=== PATIENT | male | born 1935 | race Caucasian/White ===

== ENCOUNTER 2020-01-07 07:52 | Inpatient (IN) | payer BC ==
[~2020-01-07] VITALS: Ht 185.4 cm; Wt 86.4 kg
[~2020-01-07 07:52] MED LIST: ALLO100T PO; HUM10VIA SQ; NITR0.4T48 SL; [UNRECOGNIZED DRUG - OTHER] PO
[2020-01-07] MEDS ORDERED: dextrose 50%-water 50ml dispensing syringe IV ONE ×5 (08:15→12:50)
[2020-01-07 08:43] LABS: BASOPHILS % (AUTO) 0.4 % (0-1); EOSINOPHILS # (AUTO) 0.1 X10'3 (0-0.9); EOSINOPHILS % (AUTO) 1.1 % (0-6); HEMATOCRIT 33.7 % (42.0-52.0); HEMOGLOBIN 11.6 g/dl (14.0-17.9); LYMPHOCYTES # (AUTO) 0.6 X10'3 (1.1-4.8); LYMPHOCYTES % (AUTO) 8.6 % (21-51); MEAN CORPUSCULAR HEMOGLOBIN 29.9 PG (27.0-31.0); MEAN CORPUSCULAR HGB CONC 34.4 g/dL (33.0-36.5); MEAN CORPUSCULAR VOLUME 86.8 FL (78-98); MEAN PLATELET VOLUME 7.2 FL (7.4-10.4); MONOCYTES # (AUTO) 0.5 X10'3 (0-0.9); MONOCYTES % (AUTO) 6.7 % (2-12); NEUTROPHILS # (AUTO) 5.7 X10'3 (1.8-7.7); NEUTROPHILS % (AUTO) 83.2 % (42-75); PLATELET COUNT 176 X10'3 (140-440); RED BLOOD COUNT 3.88 X10'6 (4.70-6.10); RED CELL DISTRIBUTION WIDTH 14.1 % (11.5-14.5); WHITE BLOOD COUNT 6.9 X10'3 (4.5-11.0)
[2020-01-07 09:03] LABS: ALANINE AMINOTRANSFERASE 10 U/L (12-78); ALBUMIN 2.7 G/DL (3.4-5.0); ALBUMIN/GLOBULIN RATIO 0.8 (1.1-1.5); ALKALINE PHOSPHATASE 84 IU/L (46-116); ANION GAP 8 (8-16); ASPARTATE AMINO TRANSFERASE 18 U/L (10-37); BILIRUBIN,TOTAL 0.3 MG/DL (0.1-1.0); BLOOD UREA NITROGEN 12 MG/DL (7-18); BUN/CREATININE RATIO 14.1 (5.4-32.0); CALCIUM 8.4 MG/DL (8.5-10.1); CHLORIDE 108 MMOL/L (99-107); CREATININE 0.85 MG/DL (0.60-1.10); GLUCOSE 108 MG/DL (70-104); MAGNESIUM 1.4 MG/DL (1.5-2.4); SODIUM 144 MMOL/L (135-145); TOTAL CARBON DIOXIDE 27.7 MMOL/L (24-32); TOTAL PROTEIN 5.9 G/DL (6.4-8.2); eGFR 85 ML/MIN
[2020-01-07 09:05] LABS: POTASSIUM 2.4 MMOL/L (3.5-5.1)
[2020-01-07] MEDS ORDERED: potassium 10mEq/100ml NS w/LIDOcaine (10mg/bag) IV SCH (09:25)
[2020-01-07] MEDS ORDERED: potassium Cl 20 mEq SR tablet PO ONE (09:25)
[2020-01-07] MEDS: magnesium 2GM in 50ml NS 50 ML IV SCH ×2 (09:50→11:03)
[2020-01-07] MEDS ORDERED: acetaminophen 325mg tablet PO PRN (10:20)
[2020-01-07] MEDS ORDERED: ondansetron/PF 4mg/2ml inj IV PRN (10:20)
[2020-01-07] MEDS ORDERED: magnesium hydroxide 30ml (MOM) UD suspension PO PRN (10:20)
[2020-01-07] MEDS ORDERED: dextrose 5%-normal saline 1,000 ML IV SCH (10:20)
[2020-01-07] MEDS ORDERED: mag hydrox/Alum hydrox/simeth 30ml oral suspension PO PRN (10:20)
[2020-01-07] MEDS ORDERED: potassium Cl 20 mEq SR tablet PO PRN ×2 (10:25)
[2020-01-07] MEDS ORDERED: potassium CL 10mEq/100ml bag 100 ML IV PRN (10:25)
[2020-01-07] MEDS: potassium Cl 10 mEq/100mL bag IV SCH ×2 (10:45→10:49)
--- NOTE | 2020-01-07 11:15 | NUR ---
RN paged Dr. Higginbotham for blood glucose of 62.
[2020-01-07] MEDS ORDERED: sodium chloride inj. 154 MEQ in Dextrose 10%-water IV solution 961.5 ML IV SCH (11:40)
--- NOTE | 2020-01-07 12:16 | NUR ---
Abdias ARANA from ER called back and said she found a wound on patients left foot. She said she will look into it more before sending patient to [facility]
--- NOTE | 2020-01-07 12:16 | NUR ---
Patient in room ED 5. I have received report from Abdias ARANA and had the opportunity to ask questions and assume patient care.
[2020-01-07 13:30] VITALS: BP 141/81
[2020-01-07] MEDS: potassium CL 10mEq/100ml bag 100 ML IV PRN ×3 (14:14→16:36)
[2020-01-07] MEDS ORDERED: glucagon, human recombinant 1mg kit SUBCUT PRN (15:05)
[2020-01-07] MEDS ORDERED: dextrose 50%-water 50ml dispensing syringe IV PRN ×2 (15:05)
[2020-01-07] MEDS ORDERED: dextrose ORAL solution 15 GM/59 ML bottle PO PRN ×2 (15:05)
[2020-01-07] MEDS ORDERED: MESSAGE TO PHARMACY PO ONE (15:05)
[2020-01-07] MEDS ORDERED: insulin Lispro (HumaLOG) vial - multi-dose SQ SCH (15:05)
--- NOTE | 2020-01-07 16:46 | NUR ---
Albin [id number] RE: Brandon Yang Pt BS was 41 gave D5 25ml BS now 88.
--- NOTE | 2020-01-07 16:58 | NUR ---
per Dr. Higginbotham change IV fluid D10 rate to 150ml/hr
[2020-01-07 17:02] LABS: HEMOGLOBIN A1C 10.8 % (4.5-6.2)
[2020-01-07 18:00] VITALS: BP 136/73
--- NOTE | 2020-01-07 18:34 | NUR ---
Problems reprioritized. Patient report given, questions answered & plan of care reviewed with Mirella RN.
--- NOTE | 2020-01-07 19:22 | NUR ---
Patient in room MED 318. I have received report from RUBIN ARANA and had the opportunity to ask questions and assume patient care.
[2020-01-07] MEDS ORDERED: heparin, porcine 5000 units/ml vial SQ SCH (20:00)
[2020-01-07] MEDS ORDERED: K and/or MAG REPLACEMENT MC SCH (20:00)
--- NOTE | 2020-01-07 20:40 | NUR ---
PATIENT BEGAN EXHIBITING S/S OF AGITATION AND INCREASING COMBATIVENESS WHILE WITH SITTER. PATIENT BEGAN TO RAISE VOICE LOUDLY, USE EXPLETIVES AND EXHIBIT AGRESSIVE BEHAVIOR, SWING HIS ARMS AT THE SITTER AND PROGRESS DEVELOPERYASMEEN MAGUIRE. I WAS PASSING MEDICATIONS IN ANOTHER PATIENT ROOM WHILE THIS TRANSPIRED.I THEN CAME INTO MR. ROOM TO ASSESS THE SITUATION. PATIENT INCREASINGLY COMBATIVE, "SOFT CODE MILAN" WAS CALLED-SECURITY CAME UP. THE MAINTENANCE AIDE , DR. PARIKH WAS NOTIFIED OF PATIENTS CONDITION AND DESIRE TO LEAVE THE HOSPITAL. PATIENT CONTINUED TO EXHIBIT S/S OF AGRESSIVE BEHAVIOR WHILE WE CALLED PATIENTS CORINNE. PATIENT CONTINUED TO DISPLAY AGRESSIVE BEHAVIOR THROUGHOUT THE PHONE CALL. MD PARIKH ARRIVED ONTO THE FLOOR TO SIGN AMA DOCUMENTATION. CORINNE AGREED TO COME PICK UP. PROGRESS DEVELOPER, , MYSELF AND MD WERE AT BEDSIDE WHEN ARRIVED TO TAKE PATIENT HOME. PATIENT WAS WHEELED DOWNSTAIRS IN WHEELCHAIR ESCORTED BY PROGRESS DEVELOPERYASMEEN MAGUIRE AND . PATIENT WAS ASSISTED INTO CAR. PATIENT DISCHARGED AT 2150
[2020-01-07] MEDS ORDERED: insulin glargine (Lantus) pen - multi-dose SQ SCH (21:00)
[2020-01-10] MEDS ORDERED: LANTUS SQ (11:57)
== END 2020-01-07 21:50 | disposition left against medical advice (07) | DRG 917 ==
LOC: ER 07:53 → ED HOLD 10:18 → MED 3N 12:51
PROVIDERS: ADMIT Family Medicine; ATTEND Family Medicine
DX: T38.3X1A Poisoning by insulin and oral hypoglycemic [antidiabetic] drugs, accidental (unintentional), initial encounter (principal); G93.41 Metabolic encephalopathy; E11.51 Type 2 diabetes mellitus with diabetic peripheral angiopathy without gangrene; E78.00 Pure hypercholesterolemia, unspecified; E78.5 Hyperlipidemia, unspecified; E87.6 Hypokalemia; E11.649 Type 2 diabetes mellitus with hypoglycemia without coma; I10 Essential (primary) hypertension; Z53.29 Procedure and treatment not carried out because of patient's decision for other reasons; I25.10 Atherosclerotic heart disease of native coronary artery without angina pectoris; I25.2 Old myocardial infarction; Z95.5 Presence of coronary angioplasty implant and graft; Z95.1 Presence of aortocoronary bypass graft; Z86.73 Personal history of transient ischemic attack (TIA), and cerebral infarction without residual deficits; Z85.6 Personal history of leukemia; Z88.0 Allergy status to penicillin; Z88.8 Allergy status to other drugs, medicaments and biological substances; Z79.4 Long term (current) use of insulin
CPT/HCPCS: 36415; 71045; 80053; 82948; 83036; 83605; 83735; 84145; 85025; 87040; 93005; 99285; G0378; J1644; J1815; J3475; J3480; J7042; J7131

== ENCOUNTER 2020-05-14 07:58 | Inpatient (IN) | payer BC ==
[~2020-05-14] VITALS: Ht 182.9 cm; Wt 107.4 kg
[~2020-05-14 07:58] MED LIST changes: -HUM10VIA SQ; -[UNRECOGNIZED DRUG - OTHER] PO
[2020-05-14] MEDS ORDERED: acetaminophen 325mg tablet PO STA (08:13)
[2020-05-14] MEDS ORDERED: levoFLOXACIN-Levaquin 750MG/D5 150 ML IV ONE (08:15)
[2020-05-14] MEDS ORDERED: normal saline 1000ML IV soln IV ONE ×2 (08:15→09:15)
--- NOTE | 2020-05-14 08:26 | NUR ---
CALL TO LAB TO DRAW PATIENT.
--- NOTE | 2020-05-14 08:47 | NUR ---
LAB DRAWING PT; ABX SCANNED ONLY. TO START UPON COMPLETION OF DRAW.
[2020-05-14 09:19] LABS: CLARITY,URINE SLIGHTLY CLOUDY (Clear); GLUCOSE, URINE NEGATIVE (Neg); KETONES,URINE TRACE mg/dl (Neg); LEUKOCYTE ESTERASE ,URINE TRACE (Neg); NITRITES, URINE NEGATIVE (Neg); OCCULT BLOOD,URINE LARGE (Neg); PH,URINE 5.5 (4.8-8.0); PROTEIN,URINE TRACE mg/dl (Neg)
[2020-05-14 09:20] LABS: BASOPHILS # (AUTO) 0.1 X10'3 (0-0.2); BASOPHILS % (AUTO) 0.4 % (0-1); EOSINOPHILS # (AUTO) 0.1 X10'3 (0-0.9); EOSINOPHILS % (AUTO) 0.2 % (0-6); HEMATOCRIT 28.3 % (42.0-52.0); HEMOGLOBIN 9.7 g/dl (14.0-17.9); LYMPHOCYTES # (AUTO) 0.5 X10'3 (1.1-4.8); LYMPHOCYTES % (AUTO) 1.9 % (21-51); MEAN CORPUSCULAR HEMOGLOBIN 29.6 PG (27.0-31.0); MEAN CORPUSCULAR HGB CONC 34.1 g/dL (33.0-36.5); MEAN CORPUSCULAR VOLUME 86.9 FL (78-98); MEAN PLATELET VOLUME 8.3 FL (7.4-10.4); MONOCYTES # (AUTO) 1.5 X10'3 (0-0.9); MONOCYTES % (AUTO) 5.5 % (2-12); NEUTROPHILS # (AUTO) 25.8 X10'3 (1.8-7.7); PARTIAL THROMBOPLASTIN TIME 31 SECONDS (22-32); PLATELET COUNT 206 X10'3 (140-440); RED BLOOD COUNT 3.26 X10'6 (4.70-6.10); RED CELL DISTRIBUTION WIDTH 13.6 % (11.5-14.5)
[2020-05-14 09:23] LABS: WHITE BLOOD COUNT 28.1 X10'3 (4.5-11.0)
[2020-05-14 09:33] LABS: ALANINE AMINOTRANSFERASE 16 U/L (12-78); ALBUMIN 1.8 G/DL (3.4-5.0); ALBUMIN/GLOBULIN RATIO 0.4 (1.1-1.5); ALKALINE PHOSPHATASE 103 IU/L (46-116); ANION GAP 8 (8-16); ASPARTATE AMINO TRANSFERASE 29 U/L (10-37); BILIRUBIN,TOTAL 0.7 MG/DL (0.1-1.0); BLOOD UREA NITROGEN 30 MG/DL (7-18); BUN/CREATININE RATIO 18.8 (5.4-32.0); CALCIUM 8.6 MG/DL (8.5-10.1); CHLORIDE 99 MMOL/L (99-107); GLUCOSE 173 MG/DL (70-104); POTASSIUM 3.4 MMOL/L (3.5-5.1); SODIUM 133 MMOL/L (135-145); TOTAL CARBON DIOXIDE 25.9 MMOL/L (24-32); eGFR 41 ML/MIN
[2020-05-14 09:47] LABS: COLOR,URINE DARK YELLOW (Yellow); UA COLLECTION TYPE STRAIGHT CATH
--- NOTE | 2020-05-14 09:48 | NUR ---
CALL TO PHARMACIST GERA AT THIS TIME REGARDING LEVAQUIN IV INFILTRATION, PER PHARMACIST; WARM COMPRESS TO BE APPLIED TO SITE. PATIENT CALM AND NOT COMPLAINING OF PAIN TO SITE.
[2020-05-14 09:50] LABS: RBC,URINE 50-100 /HPF (0-2); WBC,URINE 0-4 /HPF (0-4)
[2020-05-14 09:51] LABS: AMORPHOUS URATES 1+; BACTERIA,URINE FEW /HPF (Neg); MUCUS STRANDS FEW /LPF (Neg); SQUAMOUS EPITHELIAL CELL,UR FEW /LPF (FEW); TRANSITIONAL EPI CELLS,URINE FEW /HPF
[2020-05-14 09:52] LABS: COARSE GRANULAR CAST 0-3 /LPF (NEGATIVE); HYALINE CASTS 0-3 /LPF (NEGATIVE)
[2020-05-14] MEDS ORDERED: vancomycin/NS 1 GM ADD-VANTAGE 250 ML IV ONE (11:00)
[2020-05-14] MEDS ORDERED: acetaminophen 325mg tablet PO PRN (11:05)
[2020-05-14] MEDS ORDERED: potassium Cl 20 mEq SR tablet PO PRN (11:05)
[2020-05-14] MEDS ORDERED: dextrose 50%-water 50ml dispensing syringe IV PRN (11:05)
[2020-05-14] MEDS ORDERED: mag hydrox/Alum hydrox/simeth 30ml oral suspension PO PRN (11:05)
[2020-05-14] MEDS ORDERED: MESSAGE TO PHARMACY PO ONE (11:05)
[2020-05-14] MEDS ORDERED: potassium CL 10mEq/100ml bag 100 ML IV PRN ×2 (11:05)
[2020-05-14] MEDS ORDERED: ondansetron/PF 4mg/2ml inj IV PRN (11:05)
[2020-05-14] MEDS ORDERED: glucagon, human recombinant 1mg kit SUBCUT PRN (11:05)
[2020-05-14] MEDS ORDERED: HYDROmorphone 1 mg/ml syringe IV PRN (11:05)
[2020-05-14] MEDS ORDERED: magnesium 2GM in 50ml NS 50 ML IV PRN (11:05)
[2020-05-14] MEDS ORDERED: docusate sod 100mg capsule PO PRN (11:05)
[2020-05-14] MEDS ORDERED: HYDROmorphone inj. 0.5 MG/0.5 ML DISP.SYRIN IV PRN (11:05)
[2020-05-14] MEDS ORDERED: magnesium 4gm in 100ml NS 100 ML IV PRN (11:05)
[2020-05-14 11:31] LABS: HEMOGLOBIN A1C 7.9 % (4.5-6.2)
[2020-05-14 12:00] VITALS: BP 96/45
[2020-05-14] MEDS: normal saline 1000ml 1,000 ML IV SCH (12:07)
[2020-05-14] MEDS: VANCOMYCIN 1,500MG inj. 1,500 MG in normal saline 500ml IV soln 500 ML IV SCH (12:08)
[2020-05-14 12:12] LABS: HYPERSEGMENTED NEUTROPHILS FEW; PLATELET ESTIMATE NORMAL; TOTAL CELLS COUNTED 100; TOXIC GRANULATION 1+
[2020-05-14] MEDS ORDERED: INSU100C4 SQ (12:32)
[2020-05-14] MEDS ORDERED: INSU100V9 SQ (12:32)
[2020-05-14] MEDS: insulin Lispro (HumaLOG) vial - multi-dose SQ SCH ×2 (14:09→19:30)
[2020-05-14] MEDS: potassium Cl 20 mEq SR tablet PO PRN ×2 (14:10→19:53)
--- NOTE | 2020-05-14 18:10 | NUR ---
Patient in room ORTHO 4020. I have received report from YASMEEN Turner and had the opportunity to ask questions and assume patient care.
--- NOTE | 2020-05-14 18:21 | NUR ---
Patient report given to Simran ARANA
--- NOTE | 2020-05-14 19:39 | NUR ---
PT BLADDER SCANNED FOR 191 IN IT. PT STATES NOT READY TO VOID YET.
[2020-05-14] MEDS: K and/or MAG REPLACEMENT MC SCH (20:00)
--- NOTE | 2020-05-14 20:05 | NUR ---
Blood culture gram+ cocci in pairs and short chains aerobic bottle. Dr. Bustillos notified.
[2020-05-14 21:04] VITALS: BP 110/53
[2020-05-14] MEDS: insulin glargine (Lantus) pen - multi-dose SQ SCH (21:25)
[2020-05-15] MEDS: normal saline 1000ml 1,000 ML IV SCH ×4 (00:31→22:26)
[2020-05-15 06:03] LABS: BASOPHILS % (AUTO) 0 % (0-1); EOSINOPHILS % (AUTO) 0 % (0-6); HEMATOCRIT 29.6 % (42.0-52.0); HEMOGLOBIN 10.1 g/dl (14.0-17.9); LYMPHOCYTES # (AUTO) 0.7 X10'3 (1.1-4.8); LYMPHOCYTES % (AUTO) 2.9 % (21-51); MEAN CORPUSCULAR HEMOGLOBIN 29.7 PG (27.0-31.0); MEAN CORPUSCULAR HGB CONC 34.2 g/dL (33.0-36.5); MEAN PLATELET VOLUME 8.5 FL (7.4-10.4); MONOCYTES % (AUTO) 4.5 % (2-12); NEUTROPHILS # (AUTO) 20.4 X10'3 (1.8-7.7); NEUTROPHILS % (AUTO) 92.6 % (42-75); PLATELET COUNT 216 X10'3 (140-440); RED CELL DISTRIBUTION WIDTH 13.4 % (11.5-14.5); WHITE BLOOD COUNT 22.1 X10'3 (4.5-11.0)
[2020-05-15 06:06] LABS: ALANINE AMINOTRANSFERASE 16 U/L (12-78); ALBUMIN 1.6 G/DL (3.4-5.0); ALBUMIN/GLOBULIN RATIO 0.4 (1.1-1.5); ALKALINE PHOSPHATASE 101 IU/L (46-116); ANION GAP 7 (8-16); ASPARTATE AMINO TRANSFERASE 27 U/L (10-37); BILIRUBIN,TOTAL 0.4 MG/DL (0.1-1.0); BLOOD UREA NITROGEN 29 MG/DL (7-18); BUN/CREATININE RATIO 22.1 (5.4-32.0); CALCIUM 7.9 MG/DL (8.5-10.1); CHLORIDE 106 MMOL/L (99-107); CHOL/HDL RATIO 4.6 (0.00-4.99); CHOLESTEROL 78 MG/DL (0-200); CREATININE 1.31 MG/DL (0.60-1.10); GLUCOSE 158 MG/DL (70-104); HDL CHOLESTEROL 17 MG/DL (35-60); LDL CHOLESTEROL 45 MG/DL (50-100); MAGNESIUM 1.8 MG/DL (1.5-2.4); POTASSIUM 3.8 MMOL/L (3.5-5.1); SODIUM 138 MMOL/L (135-145); TOTAL CARBON DIOXIDE 25.1 MMOL/L (24-32); TOTAL PROTEIN 5.5 G/DL (6.4-8.2); TRIGLYCERIDES 62 MG/DL (20-135); eGFR 52 ML/MIN
[2020-05-15 06:10] VITALS: BP 131/53
--- NOTE | 2020-05-15 06:20 | NUR ---
Problems reprioritized. Patient report given, questions answered & plan of care reviewed with YASMEEN Turner.
--- NOTE | 2020-05-15 06:33 | NUR ---
Patient in room ORTHO 4020. I have received report from Simran ARANA and had the opportunity to ask questions and assume patient care.
[2020-05-15] MEDS: K and/or MAG REPLACEMENT MC SCH ×2 (08:00→20:00)
[2020-05-15] MEDS: enoxaparin 40mg/0.4ml syringe SQ SCH (08:12)
[2020-05-15] MEDS: insulin Lispro (HumaLOG) vial - multi-dose SQ SCH ×3 (08:19→19:26)
[2020-05-15 10:00] VITALS: BP 109/54
[2020-05-15] MEDS: VANCOMYCIN 1,500MG inj. 1,500 MG in normal saline 500ml IV soln 500 ML IV SCH (11:50)
--- NOTE | 2020-05-15 12:22 | NUR ---
DM/Wound/Malik Consults: Malik 12, A1C 7.9 down from 10.8 in December this year. 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 DX sepsis, metabolic encephalopathy, acute renal insufficiency, and pyuria r/t UTI per MD. Pt not appropriate for verbal DM/high protein eds at this time; written DM/high protein eds w/ RD contact information placed in pt chart. PO 0-25% first 2 meals yesterday pending PO today. Would benefit from strawberry Darien smoothie BIDBL for wound healing needs; MD notified. RD d/w RN regarding MVI for wounds if MD agreeable. LBM 05/14. Will continue to monitor for additional protein needs. Rec: 1. continue carb controlled/heart healthy diet; encourage PO 2. strawberry Darien smoothie BIDBL for wounds 3. MVI for wound healing 4. routine bowel care 5. wt per rx Addendum: 05/15/20 at [address] Amended: Links added.
[2020-05-15] MEDS: JUVEN Smoothie Arginine/Glut./Ca2+Bmb (Juven 19.3pkt) 240ml cup PO SCH (12:30)
[2020-05-15 18:00] VITALS: BP 146/72
--- NOTE | 2020-05-15 18:11 | NUR ---
Patient report given to Simran ARANA
--- NOTE | 2020-05-15 18:20 | NUR ---
Patient in room ORTHO 4020. I have received report from YASMEEN Turner and had the opportunity to ask questions and assume patient care.
[2020-05-15] MEDS: Dakins solution (1/4 strength) 473ml solution TP SCH (19:49)
[2020-05-15] MEDS ORDERED: Melatonin 3mg tablet PO ONE (21:00)
[2020-05-15 22:00] VITALS: BP 144/58
[2020-05-15] MEDS: insulin glargine (Lantus) pen - multi-dose SQ SCH (22:30)
--- NOTE | 2020-05-16 06:25 | NUR ---
Patient in room ORTHO 4020. I have received report from Simran and had the opportunity to ask questions and assume patient care.
--- NOTE | 2020-05-16 06:29 | NUR ---
Problems reprioritized. Patient report given, questions answered & plan of care reviewed with YASMEEN Casey.
[2020-05-16 07:15] LABS: BASOPHILS % (AUTO) 0.2 % (0-1); EOSINOPHILS # (AUTO) 0.1 X10'3 (0-0.9); EOSINOPHILS % (AUTO) 0.3 % (0-6); HEMATOCRIT 29.6 % (42.0-52.0); LYMPHOCYTES # (AUTO) 0.9 X10'3 (1.1-4.8); LYMPHOCYTES % (AUTO) 3.9 % (21-51); MEAN CORPUSCULAR HEMOGLOBIN 29.4 PG (27.0-31.0); MEAN CORPUSCULAR HGB CONC 33.8 g/dL (33.0-36.5); MEAN CORPUSCULAR VOLUME 87.1 FL (78-98); MEAN PLATELET VOLUME 8.2 FL (7.4-10.4); MONOCYTES % (AUTO) 4.4 % (2-12); NEUTROPHILS # (AUTO) 21.3 X10'3 (1.8-7.7); NEUTROPHILS % (AUTO) 91.2 % (42-75); PLATELET COUNT 239 X10'3 (140-440); RED CELL DISTRIBUTION WIDTH 13.7 % (11.5-14.5); WHITE BLOOD COUNT 23.4 X10'3 (4.5-11.0)
[2020-05-16 07:30] VITALS: BP 121/70
[2020-05-16 07:41] LABS: ALANINE AMINOTRANSFERASE 18 U/L (12-78); ALBUMIN 1.4 G/DL (3.4-5.0); ALBUMIN/GLOBULIN RATIO 0.4 (1.1-1.5); ALKALINE PHOSPHATASE 121 IU/L (46-116); ANION GAP 10 (8-16); ASPARTATE AMINO TRANSFERASE 28 U/L (10-37); BILIRUBIN,TOTAL 0.4 MG/DL (0.1-1.0); BLOOD UREA NITROGEN 26 MG/DL (7-18); BUN/CREATININE RATIO 24.1 (5.4-32.0); CHLORIDE 106 MMOL/L (99-107); CREATININE 1.08 MG/DL (0.60-1.10); GLUCOSE 136 MG/DL (70-104); MAGNESIUM 1.7 MG/DL (1.5-2.4); POTASSIUM 3.6 MMOL/L (3.5-5.1); SODIUM 137 MMOL/L (135-145); TOTAL CARBON DIOXIDE 21.5 MMOL/L (24-32); TOTAL PROTEIN 5.4 G/DL (6.4-8.2); eGFR 65 ML/MIN
[2020-05-16] MEDS: JUVEN Smoothie Arginine/Glut./Ca2+Bmb (Juven 19.3pkt) 240ml cup PO SCH ×2 (07:49→12:30)
[2020-05-16] MEDS ORDERED: levoFLOXACIN-Levaquin 500mg/D5 100 ML IV SCH (08:00)
[2020-05-16] MEDS: K and/or MAG REPLACEMENT MC SCH ×2 (08:00→20:00)
[2020-05-16 08:13] LABS: CALCIUM 7.8 MG/DL (8.5-10.1)
[2020-05-16] MEDS: Dakins solution (1/4 strength) 473ml solution TP SCH ×3 (08:22→23:00)
[2020-05-16] MEDS: enoxaparin 40mg/0.4ml syringe SQ SCH (08:23)
[2020-05-16] MEDS: insulin Lispro (HumaLOG) vial - multi-dose SQ SCH ×2 (09:06→19:52)
[2020-05-16 10:00] VITALS: BP 119/74
[2020-05-16] MEDS: normal saline 1000ml 1,000 ML IV SCH (10:46)
[2020-05-16 12:25] VITALS: BP 119/74
[2020-05-16] MEDS ORDERED: ringers solution, lacted 1,000 ML IV SCH (12:59)
[2020-05-16] MEDS ORDERED: meperidine/PF 25mg/ml syringe IV PRN ×3 (13:00)
[2020-05-16] MEDS ORDERED: morphine 4 MG/ML inj SYRINge IV PRN (13:00)
[2020-05-16] MEDS ORDERED: proCHLORperazine 10 MG/2 ml inj IV PRN (13:00)
[2020-05-16] MEDS ORDERED: ondansetron/PF 4mg/2ml inj IV PRN (13:00)
[2020-05-16] MEDS ORDERED: morphine 2 MG/ML inj. syringe IV PRN (13:00)
--- NOTE | 2020-05-16 13:13 | NUR ---
Pt went to the OR at 13:00, called report to recovery after I was back from lunch. Spoke with Aliya
[2020-05-16] MEDS ORDERED: bacitracin 15gm ointment TP ONE (13:23)
[2020-05-16] MEDS ORDERED: ceFAZolin 1000mg inj ONE (13:23)
[2020-05-16] MEDS ORDERED: ringers solution, lacted 1,000 ML IV ONE (15:39)
--- NOTE | 2020-05-16 15:43 | NUR ---
Received call from recovery/anesthesiologist, pt is not having surgery today and will have surgery tomorrow, 05/17 at 07:30. Pt had been given morning meds/lovenox prior to the decision being made to have surgery.
[2020-05-16] MEDS: cefepime 1GM in D5W 50mL 50 ML IV SCH ×2 (16:00→23:59)
[2020-05-16] MEDS: metroNIDAZOLE-Flagyl 500mg/NS 100 ML IV SCH (16:00)
[2020-05-16 18:00] VITALS: BP 123/46
--- NOTE | 2020-05-16 18:15 | NUR ---
Problems reprioritized. Patient report given, questions answered & plan of care reviewed with Patricia.
[2020-05-16 22:00] VITALS: BP 141/62
[2020-05-16] MEDS: insulin glargine (Lantus) pen - multi-dose SQ SCH (22:05)
[2020-05-16] MEDS ORDERED: Melatonin 3mg tablet PO SCH (22:10)
[2020-05-17] VITALS (12 sets, daily range): BP systolic 110–146; BP diastolic 51–88
[2020-05-17] MEDS: metroNIDAZOLE-Flagyl 500mg/NS 100 ML IV SCH ×4 (00:53→23:46)
[2020-05-17] MEDS: normal saline 1000ml 1,000 ML IV SCH ×3 (01:07→19:01)
[2020-05-17] MEDS ORDERED: famotidine 20mg tablet PO ONE (06:00)
[2020-05-17 06:15] LABS: BASOPHILS % (AUTO) 0.2 % (0-1); EOSINOPHILS # (AUTO) 0.1 X10'3 (0-0.9); EOSINOPHILS % (AUTO) 0.3 % (0-6); HEMATOCRIT 31.8 % (42.0-52.0); HEMOGLOBIN 10.5 g/dl (14.0-17.9); LYMPHOCYTES % (AUTO) 4.3 % (21-51); MEAN CORPUSCULAR HEMOGLOBIN 28.9 PG (27.0-31.0); MEAN CORPUSCULAR VOLUME 87.4 FL (78-98); MEAN PLATELET VOLUME 8.2 FL (7.4-10.4); MONOCYTES # (AUTO) 1.3 X10'3 (0-0.9); MONOCYTES % (AUTO) 5.5 % (2-12); NEUTROPHILS # (AUTO) 20.3 X10'3 (1.8-7.7); NEUTROPHILS % (AUTO) 89.7 % (42-75); PLATELET COUNT 302 X10'3 (140-440); RED BLOOD COUNT 3.64 X10'6 (4.70-6.10); RED CELL DISTRIBUTION WIDTH 13.9 % (11.5-14.5); WHITE BLOOD COUNT 22.6 X10'3 (4.5-11.0)
[2020-05-17 06:32] LABS: ALANINE AMINOTRANSFERASE 18 U/L (12-78); ALBUMIN 1.4 G/DL (3.4-5.0); ALBUMIN/GLOBULIN RATIO 0.3 (1.1-1.5); ALKALINE PHOSPHATASE 150 IU/L (46-116); ANION GAP 6 (8-16); ASPARTATE AMINO TRANSFERASE 24 U/L (10-37); BILIRUBIN,TOTAL 0.5 MG/DL (0.1-1.0); BLOOD UREA NITROGEN 24 MG/DL (7-18); BUN/CREATININE RATIO 23.1 (5.4-32.0); CALCIUM 8.2 MG/DL (8.5-10.1); CHLORIDE 107 MMOL/L (99-107); CREATININE 1.04 MG/DL (0.60-1.10); GLUCOSE 135 MG/DL (70-104); MAGNESIUM 1.5 MG/DL (1.5-2.4); POTASSIUM 3.3 MMOL/L (3.5-5.1); SODIUM 138 MMOL/L (135-145); TOTAL CARBON DIOXIDE 24.8 MMOL/L (24-32); TOTAL PROTEIN 5.8 G/DL (6.4-8.2); eGFR 68 ML/MIN
--- NOTE | 2020-05-17 06:35 | NUR ---
Patient in room ORTHO 4020. I have received report from Patricia ARANA and had the opportunity to ask questions and assume patient care.
[2020-05-17] MEDS ORDERED: fentaNYL/PF 50MCG/1 ML 2ML syringe ONE (07:05)
[2020-05-17] MEDS ORDERED: MIDAZolam 5mg/5ml vial ONE (07:05)
--- NOTE | 2020-05-17 07:13 | NUR ---
Pt heading down to OR for surgery. Called Recovery room to give report but no Answer. Apparently OR stated no one arrives to recovery until 8-8:30 am.
[2020-05-17] MEDS: JUVEN Smoothie Arginine/Glut./Ca2+Bmb (Juven 19.3pkt) 240ml cup PO SCH ×2 (07:30→12:30)
[2020-05-17] MEDS ORDERED: ringers solution, lacted 1,000 ML IV SCH (07:57)
[2020-05-17] MEDS: cefepime 1GM in D5W 50mL 50 ML IV SCH ×2 (08:00→17:55)
[2020-05-17] MEDS ORDERED: meperidine/PF 25mg/ml syringe IV PRN ×3 (08:00)
[2020-05-17] MEDS ORDERED: morphine 2 MG/ML inj. syringe IV PRN (08:00)
[2020-05-17] MEDS: K and/or MAG REPLACEMENT MC SCH ×3 (08:00→20:00)
[2020-05-17] MEDS ORDERED: morphine 4 MG/ML inj SYRINge IV PRN (08:00)
[2020-05-17] MEDS ORDERED: proCHLORperazine 10 MG/2 ml inj IV PRN (08:00)
[2020-05-17] MEDS ORDERED: ondansetron/PF 4mg/2ml inj IV PRN (08:00)
[2020-05-17] MEDS: enoxaparin 40mg/0.4ml syringe SQ SCH (08:00)
[2020-05-17] MEDS ORDERED: ePHEDrine 50MG/ML INJ. ONE (08:01)
[2020-05-17] MEDS ORDERED: dexamethasone sod phosphate 4mg/ml inj. ONE (09:09)
--- NOTE | 2020-05-17 09:19 | NUR ---
Received from OR via BED, accompanied by Anesthesiologist DR SPANN- and report given by Anesthesiolgist. PATIENT A&OX4, DENIES PAIN, V/S WNL, NEUROVASCULAR CHECKS INTACT, 20G PIV LUE, SCD ON, DRESSING STUMP CAP WITH SANTINO TO RLE CDI WITH SMALL AMOUNT OF DRAINAGE IN SANTINO. BG 131
--- NOTE | 2020-05-17 09:56 | NUR ---
Received report from Cliff ARANA in Recovery, Pt A & Ox 4, Blood loss <100, Pt had a spinal block. glucose level 131. Pt will come up to the floor in 15-20 min.
--- NOTE | 2020-05-17 10:20 | NUR ---
PATIENT REORIENTED TO BASELINE, DENIES PAIN, V/S WNL, NEUROVASCULAR CHECKS INTACT, 20G PIV LUE, SCD ON, DRESSING STUMP CAP WITH SANTINO TO RLE CDI WITH SMALL AMOUNT OF DRAINAGE IN SANTINO. BG 131- PATIENT TAKEN TO 4020B WITH ALL BELONGINGS AND HOOKED UP TO MONITORS IN ROOM AND REPORT GIVEN TO RN WHO HAS TAKEN OVER PATIENT CARE.
[2020-05-17] MEDS ORDERED: VANCOMYCIN LEVEL IV ONE (10:30)
[2020-05-17] MEDS ORDERED: famotidine 10mg tablet PO ONE (11:35)
[2020-05-17] MEDS ORDERED: potassium CL 10mEq/100ml bag 100 ML IV PRN (18:25)
[2020-05-17] MEDS ORDERED: magnesium 4gm in 100ml NS 100 ML IV PRN (18:25)
[2020-05-17] MEDS ORDERED: potassium Cl 20 mEq SR tablet PO PRN (18:25)
[2020-05-17] MEDS ORDERED: magnesium Cl slow-release 64mg tablet PO PRN (18:25)
--- NOTE | 2020-05-17 18:51 | NUR ---
Patient in room ORTHO 4020. I have received report from YASMEEN Avila and had the opportunity to ask questions and assume patient care. Patient transferred to 4010B closer to nurses station
[2020-05-17] MEDS: Dakins solution (1/4 strength) 473ml solution TP SCH (20:00)
[2020-05-17] MEDS ORDERED: Melatonin 3mg tablet PO SCH (21:00)
[2020-05-17] MEDS: Melatonin 3mg tablet PO SCH (21:35)
[2020-05-17] MEDS: potassium Cl 20 mEq SR tablet PO PRN (21:36)
[2020-05-17] MEDS: HYDROcodone/acetaminophen 10/325mg tab PO PRN (21:37)
--- NOTE | 2020-05-17 21:40 | NUR ---
I dropped patients melotonin, and K, so I had to replace them.
[2020-05-17] MEDS: insulin glargine (Lantus) pen - multi-dose SQ SCH (21:48)
[2020-05-18] MEDS: cefepime 1GM in D5W 50mL 50 ML IV SCH ×2 (00:58→07:48)
[2020-05-18 02:00] VITALS: BP 161/71
[2020-05-18] MEDS: normal saline 1000ml 1,000 ML IV SCH ×3 (03:41→17:57)
[2020-05-18 06:00] VITALS: BP 132/71
--- NOTE | 2020-05-18 06:36 | NUR ---
Problems reprioritized. Patient report given, questions answered & plan of care reviewed with YASMEEN Harris.
--- NOTE | 2020-05-18 06:37 | NUR ---
Patient in room ORTHO 4010. I have received report from YASMEEN Miguel and had the opportunity to ask questions and assume patient care.
[2020-05-18 07:02] LABS: BASOPHILS % (AUTO) 0.2 % (0-1); EOSINOPHILS % (AUTO) 0 % (0-6); HEMATOCRIT 33.3 % (42.0-52.0); HEMOGLOBIN 11.1 g/dl (14.0-17.9); LYMPHOCYTES # (AUTO) 0.8 X10'3 (1.1-4.8); LYMPHOCYTES % (AUTO) 6.3 % (21-51); MEAN CORPUSCULAR HEMOGLOBIN 29.1 PG (27.0-31.0); MEAN CORPUSCULAR HGB CONC 33.3 g/dL (33.0-36.5); MEAN CORPUSCULAR VOLUME 87.3 FL (78-98); MEAN PLATELET VOLUME 8.3 FL (7.4-10.4); MONOCYTES # (AUTO) 0.6 X10'3 (0-0.9); MONOCYTES % (AUTO) 4.8 % (2-12); NEUTROPHILS # (AUTO) 11.1 X10'3 (1.8-7.7); NEUTROPHILS % (AUTO) 88.7 % (42-75); PLATELET COUNT 327 X10'3 (140-440); RED BLOOD COUNT 3.81 X10'6 (4.70-6.10); RED CELL DISTRIBUTION WIDTH 13.9 % (11.5-14.5); WHITE BLOOD COUNT 12.6 X10'3 (4.5-11.0)
[2020-05-18 07:08] LABS: ALANINE AMINOTRANSFERASE 15 U/L (12-78); ALBUMIN 1.2 G/DL (3.4-5.0); ALBUMIN/GLOBULIN RATIO 0.3 (1.1-1.5); ALKALINE PHOSPHATASE 146 IU/L (46-116); ANION GAP 10 (8-16); ASPARTATE AMINO TRANSFERASE 23 U/L (10-37); BILIRUBIN,TOTAL 0.3 MG/DL (0.1-1.0); BLOOD UREA NITROGEN 24 MG/DL (7-18); BUN/CREATININE RATIO 23.5 (5.4-32.0); CALCIUM 7.3 MG/DL (8.5-10.1); CHLORIDE 110 MMOL/L (99-107); CREATININE 1.02 MG/DL (0.60-1.10); GLUCOSE 227 MG/DL (70-104); MAGNESIUM 1.6 MG/DL (1.5-2.4); SODIUM 142 MMOL/L (135-145); TOTAL CARBON DIOXIDE 21.9 MMOL/L (24-32); TOTAL PROTEIN 5.6 G/DL (6.4-8.2); eGFR 69 ML/MIN
[2020-05-18] MEDS: enoxaparin 40mg/0.4ml syringe SQ SCH (07:49)
[2020-05-18] MEDS: JUVEN Smoothie Arginine/Glut./Ca2+Bmb (Juven 19.3pkt) 240ml cup PO SCH ×2 (07:59→12:50)
[2020-05-18] MEDS: Dakins solution (1/4 strength) 473ml solution TP SCH ×2 (08:00→20:00)
[2020-05-18] MEDS: K and/or MAG REPLACEMENT MC SCH ×2 (08:00→18:39)
[2020-05-18] MEDS: metroNIDAZOLE-Flagyl 500mg/NS 100 ML IV SCH (08:26)
[2020-05-18] MEDS: insulin Lispro (HumaLOG) vial - multi-dose SQ SCH ×3 (08:32→19:27)
[2020-05-18 09:41] VITALS: BP 161/74
[2020-05-18] MEDS: CefTRIAXone inj 2,000 MG in normal saline 100ml IV soln 100 ML IV SCH (12:59)
[2020-05-18 13:55] VITALS: BP 120/59
--- NOTE | 2020-05-18 13:58 | NUR ---
Reassessment: pt is s/p R BKA. Poor PO intake, eating 0-25%, did drink 100% of darien today at lunch. Recommend additional supplementation with ensure enlive TID with meals, notified MD. Patient is A/O x2, h/o dementia. Will follow. Rec: 1. continue carb controlled/heart healthy diet; encourage PO 2. strawberry Darien smoothie BIDBL for wounds 3. MVI for wound healing 4. routine bowel care 5. wt per rx 6. Add ensure enlive TID with meals Addendum: 05/18/20 at [address] Amended: Links added.
[2020-05-18] MEDS: HYDROcodone/acetaminophen 10/325mg tab PO PRN ×2 (16:10→20:06)
[2020-05-18 18:00] VITALS: BP 95/37
[2020-05-18] MEDS: dextrose 50%-water 50ml dispensing syringe IV PRN ×2 (18:04→23:01)
--- NOTE | 2020-05-18 18:34 | NUR ---
Problems reprioritized. Patient report given, questions answered & plan of care reviewed with YASMEEN Menard.
--- NOTE | 2020-05-18 18:45 | NUR ---
called Dr. Glez to get PT eval and tx orders.
[2020-05-18] MEDS: Melatonin 3mg tablet PO SCH (20:06)
[2020-05-18] MEDS: dextrose ORAL solution 15 GM/59 ML bottle PO PRN ×4 (20:54→22:22)
[2020-05-18] MEDS ORDERED: Melatonin 3mg tablet PO SCH (21:00)
[2020-05-18] MEDS: insulin glargine (Lantus) pen - multi-dose SQ SCH (21:00)
--- NOTE | 2020-05-18 21:00 | NUR ---
call MD to inform him that patient BS was 64. following protocol and giving dex, but clarified Lantus. MD stated to only give 4 units of Lantus tonight.
[2020-05-18] MEDS ORDERED: insulin glargine (Lantus) pen - multi-dose SQ ONE (21:10)
[2020-05-18 22:00] VITALS: BP 143/56
--- NOTE | 2020-05-19 00:15 | NUR ---
called lab to inquire about CBC and BMP that was ordered from 05/18. They stated that patient refused lab draw. Addendum: 05/19/20 at 0017 by Sailaja Pabon RN wrong patient
[2020-05-19 02:00] VITALS: BP 135/48
[2020-05-19] MEDS: HYDROcodone/acetaminophen 10/325mg tab PO PRN ×5 (03:19→22:53)
[2020-05-19] MEDS: normal saline 1000ml 1,000 ML IV SCH ×3 (03:20→21:06)
[2020-05-19 06:00] VITALS: BP 116/45
--- NOTE | 2020-05-19 06:20 | NUR ---
Patient in room ORTHO 4010. I have received report from YASMEEN Menard and had the opportunity to ask questions and assume patient care.
[2020-05-19 06:21] LABS: ALANINE AMINOTRANSFERASE 16 U/L (12-78); ALBUMIN 1.3 G/DL (3.4-5.0); ALBUMIN/GLOBULIN RATIO 0.3 (1.1-1.5); ALKALINE PHOSPHATASE 80 IU/L (46-116); ANION GAP 7 (8-16); ASPARTATE AMINO TRANSFERASE 17 U/L (10-37); BILIRUBIN,TOTAL 0.3 MG/DL (0.1-1.0); BLOOD UREA NITROGEN 29 MG/DL (7-18); BUN/CREATININE RATIO 25.4 (5.4-32.0); CALCIUM 6.9 MG/DL (8.5-10.1); CHLORIDE 109 MMOL/L (99-107); CREATININE 1.14 MG/DL (0.60-1.10); GLUCOSE 182 MG/DL (70-104); MAGNESIUM 1.5 MG/DL (1.5-2.4); POTASSIUM 3.4 MMOL/L (3.5-5.1); SODIUM 140 MMOL/L (135-145); TOTAL PROTEIN 5.6 G/DL (6.4-8.2); eGFR 61 ML/MIN
[2020-05-19 06:36] LABS: BASOPHILS % (AUTO) 0.1 % (0-1); EOSINOPHILS # (AUTO) 0.2 X10'3 (0-0.9); EOSINOPHILS % (AUTO) 2.1 % (0-6); HEMATOCRIT 31.1 % (42.0-52.0); HEMOGLOBIN 10.4 g/dl (14.0-17.9); LYMPHOCYTES # (AUTO) 1.6 X10'3 (1.1-4.8); LYMPHOCYTES % (AUTO) 17.2 % (21-51); MEAN CORPUSCULAR HEMOGLOBIN 29.5 PG (27.0-31.0); MEAN CORPUSCULAR HGB CONC 33.5 g/dL (33.0-36.5); MEAN CORPUSCULAR VOLUME 87.9 FL (78-98); MONOCYTES # (AUTO) 0.5 X10'3 (0-0.9); MONOCYTES % (AUTO) 5.7 % (2-12); NEUTROPHILS # (AUTO) 7.2 X10'3 (1.8-7.7); NEUTROPHILS % (AUTO) 74.9 % (42-75); PLATELET COUNT 308 X10'3 (140-440); RED BLOOD COUNT 3.54 X10'6 (4.70-6.10); WHITE BLOOD COUNT 9.6 X10'3 (4.5-11.0)
--- NOTE | 2020-05-19 06:47 | NUR ---
Problems reprioritized. Patient report given, questions answered & plan of care reviewed with YASMEEN Randle.
[2020-05-19] MEDS: JUVEN Smoothie Arginine/Glut./Ca2+Bmb (Juven 19.3pkt) 240ml cup PO SCH ×2 (07:30→12:59)
[2020-05-19] MEDS: K and/or MAG REPLACEMENT MC SCH ×2 (08:12→19:37)
[2020-05-19 08:21] LABS: PLATELET ESTIMATE NORMAL; TOTAL CELLS COUNTED 100
[2020-05-19] MEDS: CefTRIAXone inj 2,000 MG in normal saline 100ml IV soln 100 ML IV SCH (09:20)
[2020-05-19] MEDS: enoxaparin 40mg/0.4ml syringe SQ SCH (09:28)
--- NOTE | 2020-05-19 09:30 | NUR ---
FC DC'd w/o complication, tip intact
[2020-05-19] MEDS: insulin Lispro (HumaLOG) vial - multi-dose SQ SCH ×3 (09:35→19:44)
[2020-05-19] MEDS: potassium Cl 20 mEq SR tablet PO PRN ×3 (09:44→21:08)
[2020-05-19 10:00] VITALS: BP 111/40
[2020-05-19] MEDS: lactose-reduced food (Ensure Enlive) - 237ml bottle PO SCH ×3 (11:03→13:59)
--- NOTE | 2020-05-19 17:30 | NUR ---
Upon insertion of FC: 700ml
[2020-05-19 18:00] VITALS: BP 146/63
--- NOTE | 2020-05-19 18:20 | NUR ---
Problems reprioritized. Patient report given, questions answered & plan of care reviewed with YASMEEN Peraza. Addendum: 05/19/20 at 2119 by Razia Hickey RN Delete note, wrong time
--- NOTE | 2020-05-19 18:45 | NUR ---
Problems reprioritized. Patient report given, questions answered & plan of care reviewed with YASMEEN Thornton.
[2020-05-19] MEDS: lactobacillus rhamnosus 10,000 MMU CELLS/CAPSULE PO SCH (19:42)
[2020-05-19] MEDS: Melatonin 3mg tablet PO SCH (21:08)
[2020-05-19] MEDS: insulin glargine (Lantus) pen - multi-dose SQ SCH (21:13)
[2020-05-19 22:00] VITALS: BP 142/74
[2020-05-20] MEDS: HYDROcodone/acetaminophen 10/325mg tab PO PRN ×4 (03:22→22:09)
--- NOTE | 2020-05-20 06:00 | NUR ---
Patient in room ORTHO 4010. I have received report from Sailaja and had the opportunity to ask questions and assume patient care.
--- NOTE | 2020-05-20 06:10 | NUR ---
Problems reprioritized. Patient report given, questions answered & plan of care reviewed with YASMEEN Watkins.
[2020-05-20] MEDS: JUVEN Smoothie Arginine/Glut./Ca2+Bmb (Juven 19.3pkt) 240ml cup PO SCH ×2 (07:30→12:30)
[2020-05-20] MEDS: K and/or MAG REPLACEMENT MC SCH ×2 (08:00→20:00)
[2020-05-20] MEDS: lactose-reduced food (Ensure Enlive) - 237ml bottle PO SCH ×3 (08:00→18:00)
[2020-05-20] MEDS: lactobacillus rhamnosus 10,000 MMU CELLS/CAPSULE PO SCH ×2 (09:01→21:24)
[2020-05-20] MEDS: enoxaparin 40mg/0.4ml syringe SQ SCH (09:02)
[2020-05-20] MEDS: insulin Lispro (HumaLOG) vial - multi-dose SQ SCH (09:45)
[2020-05-20 10:00] VITALS: BP 119/62
[2020-05-20] MEDS ORDERED: LORazepam 0.5 MG tablet PO PRN (10:10)
--- NOTE | 2020-05-20 11:00 | NUR ---
PAGER ID: [phone] MESSAGE: [id number] Brandon Yang Patient had a BKA on 05/17 he also has dementia. Patient is yelling at sitter and very anxious may I get a order for ativan or benedryl please thank you June #[phone]
[2020-05-20] MEDS: CefTRIAXone inj 2,000 MG in normal saline 100ml IV soln 100 ML IV SCH (11:20)
--- NOTE | 2020-05-20 13:59 | NUR ---
promotional table spacer PAGER ID: [phone] MESSAGE: [id number] Brandon Coleman Can Could we change Ativan to q4 instead of q6? really helped him but its been 4 hours and hes starting to get riled up about not being able to walk again. pulling at payne, IV, and making sitter nervous. #[id number] June (240 character message out of a maximum of 240)
[2020-05-20] MEDS: LORazepam 0.5 MG tablet PO PRN (15:16)
--- NOTE | 2020-05-20 16:17 | NUR ---
PAGER ID: [phone] MESSAGE: [id number] Brandon Coleman very itchy from [place] can we get a order for ines please. Thank you June #[id number] (107 character message out of a maximum of 240
[2020-05-20] MEDS: normal saline 1000ml 1,000 ML IV SCH (17:01)
[2020-05-20 18:00] VITALS: BP 173/71
--- NOTE | 2020-05-20 18:17 | NUR ---
Problems reprioritized. Patient report given, questions answered & plan of care reviewed with Patricia.
[2020-05-20] MEDS: insulin glargine (Lantus) pen - multi-dose SQ SCH (21:00)
[2020-05-20] MEDS: Melatonin 3mg tablet PO SCH (21:24)
[2020-05-20 22:00] VITALS: BP 175/88
[2020-05-21] MEDS: normal saline 1000ml 1,000 ML IV SCH ×3 (03:01→23:01)
[2020-05-21] MEDS: HYDROcodone/acetaminophen 10/325mg tab PO PRN (05:13)
[2020-05-21 06:54] VITALS: BP 190/86
--- NOTE | 2020-05-21 06:57 | NUR ---
Received report from Patricia ARANA
[2020-05-21] MEDS: JUVEN Smoothie Arginine/Glut./Ca2+Bmb (Juven 19.3pkt) 240ml cup PO SCH ×2 (07:30→12:30)
[2020-05-21] MEDS: lactobacillus rhamnosus 10,000 MMU CELLS/CAPSULE PO SCH ×2 (07:40→20:42)
[2020-05-21] MEDS: enoxaparin 40mg/0.4ml syringe SQ SCH (07:40)
[2020-05-21] MEDS: CefTRIAXone inj 2,000 MG in normal saline 100ml IV soln 100 ML IV SCH (07:41)
[2020-05-21] MEDS: lactose-reduced food (Ensure Enlive) - 237ml bottle PO SCH ×3 (08:00→18:45)
[2020-05-21] MEDS: K and/or MAG REPLACEMENT MC SCH ×2 (08:00→20:46)
[2020-05-21] MEDS: LORazepam 0.5 MG tablet PO PRN (08:27)
[2020-05-21] MEDS: LORazepam 2 mg/ml vial IV PRN ×3 (12:34→20:38)
--- NOTE | 2020-05-21 14:09 | NUR ---
F/u (05/21): Pt PO slight improvement to 25-50% meals past 3 days overall ~25% past 7 days not meeting needs. PO 75-100% Darien ONS BIDBL w/ poor ensure intake. RN reports ensure not on tray; NILA d/w dietary to verify TIDWM ONS. AOx1 agitated today per RN also LBM 05/17 w/ no bowel care. NILA [email or web address] regarding routine bowel care for constipation. AOC and constipation both to impact PO. Will monitor for PO intake and further ONS acceptance s/p R BKA. Rec: 1. continue carb controlled/heart healthy diet; encourage PO 2. strawberry Darien smoothie BIDBL for wounds 3. MVI for wound healing 4. routine bowel care 5. wt per rx 6. Add ensure enlive TID with meals Addendum: 05/21/20 at [address] Amended: Links added.
--- NOTE | 2020-05-21 15:51 | NUR ---
pATIENT REFUSED INSULIN AND DID NOT WANT ANYTHING TO DO WITH IT HE SAID
--- NOTE | 2020-05-21 18:30 | NUR ---
Pt refused routine vital signs at this time. Will continue to monitor and attempt at 2200.
[2020-05-21] MEDS: insulin Lispro (HumaLOG) vial - multi-dose SQ SCH ×2 (19:23→21:11)
[2020-05-21] MEDS: Melatonin 3mg tablet PO SCH (20:42)
[2020-05-21] MEDS: insulin glargine (Lantus) pen - multi-dose SQ SCH (21:10)
[2020-05-21 22:00] VITALS: BP 151/60
[2020-05-22] MEDS: LORazepam 2 mg/ml vial IV PRN (03:38)
[2020-05-22] MEDS: HYDROcodone/acetaminophen 10/325mg tab PO PRN ×3 (05:58→23:25)
--- NOTE | 2020-05-22 06:26 | NUR ---
Received report from Sailaja ARANA
[2020-05-22 06:55] VITALS: BP 169/67
[2020-05-22] MEDS: JUVEN Smoothie Arginine/Glut./Ca2+Bmb (Juven 19.3pkt) 240ml cup PO SCH ×3 (07:30→14:54)
[2020-05-22] MEDS: CefTRIAXone inj 2,000 MG in normal saline 100ml IV soln 100 ML IV SCH (07:58)
[2020-05-22] MEDS: K and/or MAG REPLACEMENT MC SCH ×2 (08:00→20:00)
[2020-05-22] MEDS: lactose-reduced food (Ensure Enlive) - 237ml bottle PO SCH ×3 (08:00→14:54)
[2020-05-22] MEDS: enoxaparin 40mg/0.4ml syringe SQ SCH (08:00)
[2020-05-22] MEDS: lactobacillus rhamnosus 10,000 MMU CELLS/CAPSULE PO SCH ×2 (08:00→20:17)
[2020-05-22] MEDS: normal saline 1000ml 1,000 ML IV SCH ×2 (09:01→19:01)
[2020-05-22] MEDS: insulin Lispro (HumaLOG) vial - multi-dose SQ SCH ×3 (09:35→18:54)
[2020-05-22] MEDS: LORazepam 0.5 MG tablet PO PRN ×2 (15:56→23:23)
[2020-05-22 18:00] VITALS: BP 103/46
--- NOTE | 2020-05-22 18:13 | NUR ---
Report given to Sailaja ARANA
[2020-05-22] MEDS: Melatonin 3mg tablet PO SCH (20:17)
[2020-05-22] MEDS: insulin glargine (Lantus) pen - multi-dose SQ SCH (20:51)
[2020-05-22 22:00] VITALS: BP 166/67
[2020-05-23] MEDS: LORazepam 2 mg/ml vial IV PRN ×3 (02:57→20:14)
[2020-05-23] MEDS: HYDROcodone/acetaminophen 10/325mg tab PO PRN ×2 (04:12→12:42)
[2020-05-23] MEDS: normal saline 1000ml 1,000 ML IV SCH ×2 (05:01→15:01)
[2020-05-23 06:00] VITALS: BP 168/76
--- NOTE | 2020-05-23 06:57 | NUR ---
Patient in room ORTHO 4010B. I have received report from Sailaja Adames RN and had the opportunity to ask questions and assume patient care.
[2020-05-23 06:58] LABS: BASOPHILS # (AUTO) 0.1 X10'3 (0-0.2); EOSINOPHILS # (AUTO) 0.2 X10'3 (0-0.9); MONOCYTES # (AUTO) 0.4 X10'3 (0-0.9); MONOCYTES % (AUTO) 4.6 % (2-12); RED CELL DISTRIBUTION WIDTH 13.8 % (11.5-14.5)
[2020-05-23 07:00] LABS: BASOPHILS % (AUTO) 1.3 % (0-1); EOSINOPHILS % (AUTO) 1.8 % (0-6); LYMPHOCYTES # (AUTO) 1.3 X10'3 (1.1-4.8); LYMPHOCYTES % (AUTO) 15.4 % (21-51); MEAN CORPUSCULAR HEMOGLOBIN 29.5 PG (27.0-31.0); MEAN CORPUSCULAR HGB CONC 33.4 g/dL (33.0-36.5); MEAN CORPUSCULAR VOLUME 88.3 FL (78-98); MEAN PLATELET VOLUME 7.9 FL (7.4-10.4); NEUTROPHILS # (AUTO) 6.7 X10'3 (1.8-7.7); NEUTROPHILS % (AUTO) 76.9 % (42-75); PLATELET COUNT 148 X10'3 (140-440); RED BLOOD COUNT 3.73 X10'6 (4.70-6.10); WHITE BLOOD COUNT 8.8 X10'3 (4.5-11.0)
[2020-05-23 07:12] LABS: ANION GAP 5 (8-16); BLOOD UREA NITROGEN 17 MG/DL (7-18); BUN/CREATININE RATIO 19.1 (5.4-32.0); CALCIUM 8.1 MG/DL (8.5-10.1); CHLORIDE 108 MMOL/L (99-107); CREATININE 0.89 MG/DL (0.60-1.10); GLUCOSE 113 MG/DL (70-104); POTASSIUM 3.4 MMOL/L (3.5-5.1); SODIUM 142 MMOL/L (135-145); TOTAL CARBON DIOXIDE 29.4 MMOL/L (24-32); eGFR 81 ML/MIN
[2020-05-23] MEDS: K and/or MAG REPLACEMENT MC SCH ×2 (07:17→19:21)
[2020-05-23] MEDS: lactobacillus rhamnosus 10,000 MMU CELLS/CAPSULE PO SCH ×2 (08:14→20:10)
[2020-05-23] MEDS: enoxaparin 40mg/0.4ml syringe SQ SCH (08:16)
[2020-05-23] MEDS: CefTRIAXone inj 2,000 MG in normal saline 100ml IV soln 100 ML IV SCH (08:21)
[2020-05-23] MEDS: lactose-reduced food (Ensure Enlive) - 237ml bottle PO SCH ×3 (08:22→18:08)
[2020-05-23] MEDS: insulin Lispro (HumaLOG) vial - multi-dose SQ SCH ×3 (09:03→19:19)
[2020-05-23] MEDS: LORazepam 0.5 MG tablet PO PRN ×2 (10:32→16:17)
[2020-05-23] MEDS ORDERED: potassium Cl 20 mEq SR tablet PO STA (11:15)
[2020-05-23] MEDS: JUVEN Smoothie Arginine/Glut./Ca2+Bmb (Juven 19.3pkt) 240ml cup PO SCH (12:30)
[2020-05-23] MEDS: nystatin 15 GM powder TP SCH ×2 (14:04→20:46)
--- NOTE | 2020-05-23 18:37 | NUR ---
Problems reprioritized. Patient report given, questions answered & plan of care reviewed with YASMEEN Menard.
[2020-05-23] MEDS: Melatonin 3mg tablet PO SCH (20:10)
[2020-05-23] MEDS: insulin glargine (Lantus) pen - multi-dose SQ SCH (20:48)
[2020-05-23 22:00] VITALS: BP 146/50
[2020-05-24] MEDS: LORazepam 2 mg/ml vial IV PRN (00:24)
[2020-05-24] MEDS: normal saline 1000ml 1,000 ML IV SCH ×3 (00:27→21:01)
[2020-05-24] MEDS: HYDROcodone/acetaminophen 10/325mg tab PO PRN ×2 (01:20→20:57)
--- NOTE | 2020-05-24 06:37 | NUR ---
Patient in room ORTHO 4010B. I have received report from Sailaja Adames RN and had the opportunity to ask questions and assume patient care.
[2020-05-24] MEDS: JUVEN Smoothie Arginine/Glut./Ca2+Bmb (Juven 19.3pkt) 240ml cup PO SCH ×2 (07:30→13:16)
[2020-05-24] MEDS: lactobacillus rhamnosus 10,000 MMU CELLS/CAPSULE PO SCH ×2 (07:47→20:56)
[2020-05-24] MEDS: CefTRIAXone inj 2,000 MG in normal saline 100ml IV soln 100 ML IV SCH (07:48)
[2020-05-24] MEDS: enoxaparin 40mg/0.4ml syringe SQ SCH (07:53)
[2020-05-24] MEDS: lactose-reduced food (Ensure Enlive) - 237ml bottle PO SCH ×3 (07:54→18:30)
[2020-05-24] MEDS: nystatin 15 GM powder TP SCH ×3 (08:00→20:57)
[2020-05-24] MEDS: K and/or MAG REPLACEMENT MC SCH ×2 (08:00→20:00)
[2020-05-24] MEDS: insulin Lispro (HumaLOG) vial - multi-dose SQ SCH ×2 (08:52→13:33)
[2020-05-24 10:00] VITALS: BP 142/55
--- NOTE | 2020-05-24 13:55 | NUR ---
F/u (05/24): Pt PO continues to fluctuate w/ ALOC ~50% avg past 3 days w/ 25-49% overall. PO 75-100% ensure enlive TIDWM w/ darien ONS PO fluctuating partially meeting needs at this time. Chopped all and finger foods diet order added yesterday to assist w/ PO per EMR. LBM 05/23. Will continue to monitor for additional protein needs. Rec: 1. continue carb controlled/heart healthy diet; chopped all/finger foods; encourage PO 2. strawberry Darien smoothie BIDBL for wounds; ensure enlive TIDWM 3. MVI for wound healing 4. routine bowel care 5. weekly wts Addendum: 05/24/20 at [address] Amended: Links added.
--- NOTE | 2020-05-24 16:40 | NUR ---
Patient in room ALEX 356. I have received report from russ fenton and had the opportunity to ask questions and assume patient care.
--- NOTE | 2020-05-24 16:40 | NUR ---
Problems reprioritized. Patient report given, questions answered & plan of care reviewed with YASMEEN Trinidad on surgical.
--- NOTE | 2020-05-24 17:15 | NUR ---
RECD PT FROM O/N. PT CONFUSED, BASELINE. VSS Addendum: 05/24/20 at 1833 by Ema Garcia RN Amended: Links added.
[2020-05-24 17:38] VITALS: BP 145/60
[2020-05-24 18:00] VITALS: BP 155/88
--- NOTE | 2020-05-24 18:30 | NUR ---
Patient in room ALEX 356. I have received report from CHRISTIANE ARANA and had the opportunity to ask questions and assume patient care.
[2020-05-24] MEDS: LORazepam 0.5 MG tablet PO PRN (20:56)
[2020-05-24] MEDS: Melatonin 3mg tablet PO SCH (20:56)
--- NOTE | 2020-05-24 21:30 | NUR ---
PAGED DR. PENG ABOUT PATIENT'S BEHAVIOR VERY COMBATIVE, AGITATED PULLING OUT IV, HITTING STAFF. UNABLE TO VOID BLADDER SCAN 475ML, WITH ORDER TO GIVE GEODON 10MG IM X1, RESTRAINT, SITTER AND INSERT LOPEZ FOR RETENTION.
[2020-05-24] MEDS ORDERED: LIDOcaine 2% 10ml TOPICAL JELLY (Urojet) TP ONE (22:05)
[2020-05-24] MEDS ORDERED: ziprasidone IM 20mg inj **IM only IM ONE (22:05)
[2020-05-24] MEDS: insulin glargine (Lantus) pen - multi-dose SQ SCH (22:30)
[2020-05-25] VITALS: BP 146/55
[2020-05-25] MEDS: HYDROcodone/acetaminophen 10/325mg tab PO PRN ×2 (02:56→18:46)
--- NOTE | 2020-05-25 06:30 | NUR ---
Problems reprioritized. Patient report given, questions answered & plan of care reviewed with NEETU ARANA.
--- NOTE | 2020-05-25 06:31 | NUR ---
Patient in room ALEX 356. I have received report from Hannah ARANA and had the opportunity to ask questions and assume patient care.
[2020-05-25 07:00] VITALS: BP 158/75
[2020-05-25] MEDS: JUVEN Smoothie Arginine/Glut./Ca2+Bmb (Juven 19.3pkt) 240ml cup PO SCH ×2 (07:54→12:30)
[2020-05-25] MEDS: lactose-reduced food (Ensure Enlive) - 237ml bottle PO SCH ×3 (07:55→18:00)
[2020-05-25] MEDS: enoxaparin 40mg/0.4ml syringe SQ SCH (07:55)
[2020-05-25] MEDS: CefTRIAXone inj 2,000 MG in normal saline 100ml IV soln 100 ML IV SCH (07:56)
[2020-05-25] MEDS: lactobacillus rhamnosus 10,000 MMU CELLS/CAPSULE PO SCH ×2 (07:56→20:39)
[2020-05-25] MEDS: nystatin 15 GM powder TP SCH ×3 (07:58→21:04)
[2020-05-25] MEDS: K and/or MAG REPLACEMENT MC SCH ×2 (08:00→20:00)
[2020-05-25] MEDS: normal saline 1000ml 1,000 ML IV SCH ×2 (08:13→18:48)
[2020-05-25] MEDS: insulin Lispro (HumaLOG) vial - multi-dose SQ SCH ×2 (09:12→18:43)
[2020-05-25 11:00] VITALS: BP 137/76
[2020-05-25] MEDS: LORazepam 2 mg/ml vial IV PRN (12:21)
--- NOTE | 2020-05-25 13:21 | NUR ---
PAGER ID: [phone] MESSAGE: Surgical Flr Leyla RN ext [phone]. RE:Brandon Yang. Patient agitated, yelling out. I gave Ativan 0.5mg IV did not worked, even more agitated. Do you want Geodon for this patient? He onbly have 1 time dose last night
[2020-05-25] MEDS ORDERED: haloperidol lactate 5mg/ml inj IM ONE (13:25)
--- NOTE | 2020-05-25 13:50 | NUR ---
Patient still very agitated, confused, and trying to get out of bed. Restraints on. Circulation checked. Geodon 5mg IM given on the left upper arm. Right forearm has small skin tear. Radial pulses palpable. Reoriented patient, reviewed with him the criteria for restraints removal. Patient not following instruction Addendum: 05/25/20 at 1406 by Leyla Dietz RN Clarification: Haldol IM given for agitation not Geodon. See EMAR
[2020-05-25 18:00] VITALS: BP 108/88
--- NOTE | 2020-05-25 18:43 | NUR ---
Patient in room ALEX 356. I have received report from NEETU ARANA and had the opportunity to ask questions and assume patient care.
--- NOTE | 2020-05-25 18:56 | NUR ---
Problems reprioritized. Patient report given, questions answered & plan of care reviewed with Prudence RN.
[2020-05-25] MEDS ORDERED: K and/or MAG REPLACEMENT MC SCH (19:55)
[2020-05-25] MEDS ORDERED: potassium CL 10mEq/100ml bag 100 ML IV PRN (19:55)
[2020-05-25] MEDS ORDERED: potassium Cl 20 mEq SR tablet PO PRN (19:55)
[2020-05-25] MEDS ORDERED: magnesium 4gm in 100ml NS 100 ML IV PRN (19:55)
[2020-05-25] MEDS: potassium Cl 20 mEq SR tablet PO PRN (20:39)
[2020-05-25] MEDS: Melatonin 3mg tablet PO SCH (20:39)
[2020-05-25] MEDS: insulin glargine (Lantus) pen - multi-dose SQ SCH (21:00)
--- NOTE | 2020-05-25 22:14 | NUR ---
DID NOT ADMINISTER LANTUS DUE TO PATIENT NOT EATING AND THE BLOOD SUGAR WAS TOO LOW 136.
[2020-05-26 00:22] VITALS: BP 140/78
[2020-05-26] MEDS: normal saline 1000ml 1,000 ML IV SCH ×3 (03:18→23:28)
--- NOTE | 2020-05-26 06:00 | NUR ---
Patient in room ALEX 356. I have received report from YASMEEN Cintron and had the opportunity to ask questions and assume patient care.
--- NOTE | 2020-05-26 06:13 | NUR ---
Problems reprioritized. Patient report given, questions answered & plan of care reviewed with TORSTEN ARANA.
[2020-05-26 06:58] LABS: MAGNESIUM 1.4 MG/DL (1.5-2.4); POTASSIUM 3.9 MMOL/L (3.5-5.1)
[2020-05-26 07:00] VITALS: BP 152/83
[2020-05-26] MEDS: JUVEN Smoothie Arginine/Glut./Ca2+Bmb (Juven 19.3pkt) 240ml cup PO SCH ×2 (07:50→12:35)
[2020-05-26] MEDS: CefTRIAXone inj 2,000 MG in normal saline 100ml IV soln 100 ML IV SCH (07:51)
[2020-05-26] MEDS: lactobacillus rhamnosus 10,000 MMU CELLS/CAPSULE PO SCH ×2 (07:51→19:22)
[2020-05-26] MEDS: HYDROcodone/acetaminophen 10/325mg tab PO PRN ×4 (07:51→23:34)
[2020-05-26] MEDS: potassium Cl 20 mEq SR tablet PO PRN (07:51)
[2020-05-26] MEDS: enoxaparin 40mg/0.4ml syringe SQ SCH (07:52)
[2020-05-26] MEDS: lactose-reduced food (Ensure Enlive) - 237ml bottle PO SCH ×3 (07:52→18:00)
[2020-05-26] MEDS: nystatin 15 GM powder TP SCH ×3 (07:52→22:13)
[2020-05-26] MEDS: K and/or MAG REPLACEMENT MC SCH ×2 (07:52→19:16)
--- NOTE | 2020-05-26 09:39 | NUR ---
Patient had a K of 3.4 05/25. One dose of 20meq k-dur was given 05/25. The second of three doses was given, then 05/26 potassium lab showed 3.9. No further doses needed.
[2020-05-26] MEDS ORDERED: potassium Cl 20 mEq SR tablet PO PRN ×2 (10:10)
[2020-05-26] MEDS ORDERED: potassium CL 10mEq/100ml bag 100 ML IV PRN (10:10)
[2020-05-26] MEDS ORDERED: magnesium 4gm in 100ml NS 100 ML IV PRN (10:10)
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
--- NOTE | 2020-05-26 10:31 | NUR ---
MD Higginbotham examined BKA day prior, orders received not to change dressing until thursday.
[2020-05-26 11:45] VITALS: BP 131/59
[2020-05-26] MEDS: LORazepam 0.5 MG tablet PO PRN (11:45)
[2020-05-26] MEDS: insulin Lispro (HumaLOG) vial - multi-dose SQ SCH ×2 (12:41→18:52)
[2020-05-26] MEDS: magnesium Cl slow-release 64mg tablet PO PRN (15:37)
--- NOTE | 2020-05-26 18:15 | NUR ---
Problems reprioritized. Patient report given, questions answered & plan of care reviewed with YASMEEN Cintron.
--- NOTE | 2020-05-26 18:29 | NUR ---
Patient in room ALEX 356. I have received report from Vinicius ARANA and had the opportunity to ask questions and assume patient care.
[2020-05-26] MEDS: insulin glargine (Lantus) pen - multi-dose SQ SCH (21:00)
[2020-05-26] MEDS: Melatonin 3mg tablet PO SCH (22:12)
--- NOTE | 2020-05-26 22:14 | NUR ---
LANTUS NOT ADMINISTERED, BLOOD GLUCOSE TOO LOW 81
[2020-05-27 01:54] VITALS: BP 183/67
[2020-05-27] MEDS: HYDROcodone/acetaminophen 10/325mg tab PO PRN ×4 (04:31→21:15)
--- NOTE | 2020-05-27 06:47 | NUR ---
Problems reprioritized. Patient report given, questions answered & plan of care reviewed with Musnaty RN.
--- NOTE | 2020-05-27 06:47 | NUR ---
Patient in room ALEX 356. I have received report from YASMEEN Cintron and had the opportunity to ask questions and assume patient care.
[2020-05-27 06:48] LABS: MAGNESIUM 1.4 MG/DL (1.5-2.4)
[2020-05-27 06:49] LABS: POTASSIUM 3.9 MMOL/L (3.5-5.1)
[2020-05-27 07:00] VITALS: BP 154/80
[2020-05-27] MEDS: lactobacillus rhamnosus 10,000 MMU CELLS/CAPSULE PO SCH ×3 (08:00→21:07)
[2020-05-27] MEDS: nystatin 15 GM powder TP SCH ×3 (08:01→21:14)
[2020-05-27] MEDS: normal saline 1000ml 1,000 ML IV SCH (08:01)
[2020-05-27] MEDS: CefTRIAXone inj 2,000 MG in normal saline 100ml IV soln 100 ML IV SCH (08:01)
[2020-05-27] MEDS: magnesium Cl slow-release 64mg tablet PO PRN (08:02)
[2020-05-27] MEDS: JUVEN Smoothie Arginine/Glut./Ca2+Bmb (Juven 19.3pkt) 240ml cup PO SCH ×2 (08:04→13:06)
[2020-05-27] MEDS: lactose-reduced food (Ensure Enlive) - 237ml bottle PO SCH ×3 (08:04→18:00)
[2020-05-27] MEDS: K and/or MAG REPLACEMENT MC SCH ×2 (08:05→20:00)
[2020-05-27] MEDS: insulin Lispro (HumaLOG) vial - multi-dose SQ SCH ×3 (09:16→21:18)
[2020-05-27 11:50] LABS: BASOPHILS # (AUTO) 0.1 X10'3 (0-0.2); BASOPHILS % (AUTO) 0.8 % (0-1); EOSINOPHILS # (AUTO) 0.1 X10'3 (0-0.9); EOSINOPHILS % (AUTO) 1.1 % (0-6); HEMATOCRIT 28.7 % (42.0-52.0); HEMOGLOBIN 9.4 g/dl (14.0-17.9); LYMPHOCYTES # (AUTO) 1.1 X10'3 (1.1-4.8); LYMPHOCYTES % (AUTO) 9.4 % (21-51); MEAN CORPUSCULAR HEMOGLOBIN 29.3 PG (27.0-31.0); MEAN CORPUSCULAR HGB CONC 32.9 g/dL (33.0-36.5); MEAN CORPUSCULAR VOLUME 89.2 FL (78-98); MEAN PLATELET VOLUME 7.7 FL (7.4-10.4); MONOCYTES # (AUTO) 0.6 X10'3 (0-0.9); NEUTROPHILS # (AUTO) 9.7 X10'3 (1.8-7.7); NEUTROPHILS % (AUTO) 83.7 % (42-75); PLATELET COUNT 299 X10'3 (140-440); RED BLOOD COUNT 3.22 X10'6 (4.70-6.10); RED CELL DISTRIBUTION WIDTH 14.6 % (11.5-14.5); WHITE BLOOD COUNT 11.6 X10'3 (4.5-11.0)
[2020-05-27] MEDS ORDERED: haloperidol lactate 5mg/ml inj IM ONE (12:10)
[2020-05-27] MEDS: enoxaparin 40mg/0.4ml syringe SQ SCH (12:21)
--- NOTE | 2020-05-27 14:14 | NUR ---
F/u (05/27): Pt PO improved past 2 days to 75-100% avg meals w/ 100% ensure enlive and Darien. RN TC today given additional carbs w/ meals given two ONS this AM. Given PO increase would benefit from removal of ensure enlive TIDWM and continuing Darien smoothie given lower carbs and wound healing needs; NILA recommended RN to d/w LBM 05/24. Will continue to monitor for additional wound healing needs. Rec: 1. continue carb controlled/heart healthy diet; chopped all/finger foods; encourage PO 2. strawberry Darien smoothie BIDBL for wounds; stop ensures w/ good PO hx 3. MVI for wound healing 4. routine bowel care 5. weekly wts Addendum: 05/27/20 at [address] Amended: Links added.
--- NOTE | 2020-05-27 18:21 | NUR ---
Problems reprioritized. Patient report given, questions answered & plan of care reviewed with YASMEEN Ruth.
--- NOTE | 2020-05-27 18:28 | NUR ---
Patient in room ALEX 356. I have received report from TORSTEN ARANA and had the opportunity to ask questions and assume patient care. Addendum: 05/27/20 at 1828 by Flory Modi RN Amended: Links added.
[2020-05-27 20:00] VITALS: BP 120/55
[2020-05-27] MEDS ORDERED: risperiDONE 0.5mg tablet PO SCH (21:00)
[2020-05-27] MEDS: insulin glargine (Lantus) pen - multi-dose SQ SCH (21:00)
[2020-05-27] MEDS: Melatonin 3mg tablet PO SCH (21:06)
[2020-05-27] MEDS: LORazepam 0.5 MG tablet PO PRN (21:06)
--- NOTE | 2020-05-27 21:21 | NUR ---
pt medicated for pain with norco po and agitation pulling at staff and lines. did not give lantus sensitive to it but covered for 37 carbs and at level 4 and night time blood sugar coverage for blood sugar of 316. pt hs care given and given nystatin powder for the perineal rash..
--- NOTE | 2020-05-28 01:30 | NUR ---
resting no s&s of distress at this time.
[2020-05-28] MEDS: HYDROcodone/acetaminophen 10/325mg tab PO PRN ×2 (03:20→10:23)
[2020-05-28] MEDS: LORazepam 0.5 MG tablet PO PRN ×2 (03:20→20:54)
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
--- NOTE | 2020-05-28 04:41 | NUR ---
resting appears comfortaBLE NOW.
--- NOTE | 2020-05-28 05:16 | NUR ---
pt not restless or kicking and pulling at this time. appears comfortable.
[2020-05-28 05:23] LABS: MAGNESIUM 1.8 MG/DL (1.5-2.4); POTASSIUM 3.8 MMOL/L (3.5-5.1)
--- NOTE | 2020-05-28 06:00 | NUR ---
Patient in room ALEX 356. I have received report from YASMEEN Ruth and had the opportunity to ask questions and assume patient care.
--- NOTE | 2020-05-28 06:04 | NUR ---
Problems reprioritized. Patient report given, questions answered & plan of care reviewed with TORSTEN ARANA. Addendum: 05/28/20 at 0604 by Flory Modi RN Amended: Links added.
[2020-05-28 07:00] VITALS: BP 176/90
[2020-05-28] MEDS: JUVEN Smoothie Arginine/Glut./Ca2+Bmb (Juven 19.3pkt) 240ml cup PO SCH ×2 (07:30→12:30)
[2020-05-28] MEDS: lactose-reduced food (Ensure Enlive) - 237ml bottle PO SCH (08:00)
[2020-05-28] MEDS: K and/or MAG REPLACEMENT MC SCH ×2 (08:00→20:00)
[2020-05-28] MEDS: lactobacillus rhamnosus 10,000 MMU CELLS/CAPSULE PO SCH ×2 (09:17→20:51)
[2020-05-28] MEDS: enoxaparin 40mg/0.4ml syringe SQ SCH (09:18)
[2020-05-28] MEDS: insulin Lispro (HumaLOG) vial - multi-dose SQ SCH ×2 (09:33→21:03)
[2020-05-28] MEDS: nystatin 15 GM powder TP SCH ×3 (10:07→21:07)
--- NOTE | 2020-05-28 10:15 | NUR ---
patient kicked stump socks off, replaced stump sock and secured w foam tape, will receive orders when surgeon rounds.
[2020-05-28 11:00] VITALS: BP 90/40
--- NOTE | 2020-05-28 18:00 | NUR ---
Problems reprioritized. Patient report given, questions answered & plan of care reviewed with YASMEEN Ruth.
--- NOTE | 2020-05-28 18:44 | NUR ---
Patient in room ALEX 356. I have received report from TORSTEN ARANA and had the opportunity to ask questions and assume patient care. Addendum: 05/28/20 at 1844 by Flory Modi RN Amended: Links added.
--- NOTE | 2020-05-28 19:27 | NUR ---
CT FERN EMAIL PRODUCER CALLED STATED THAT DR GERMAN ORDERED CT OF CHEST FOR ALTERED LEVEL OF CONSCIOUSNESS. DR GERMAN NOT AVAILABLE TO CLARIFY ORDER AND PT CONFUSED AGITATED WITHOUT RESPIRATORY S&S. CT WAS NOT ORDERED STAT WILL PASS ON TO DAYSHIFT TO CLARIFY THE ORDER WITH DR GERMAN IN THE AM AND CT RESCHEDULED FOR TOMORROW AND OR TILL FURTHER CLARIFICATION.
--- NOTE | 2020-05-28 19:33 | NUR ---
DR HARVEY ON TONIGHT AND WOULD BE DIFFICULT TO CLARIFY THIS TONIGHT ON CT CHEST FOR CHANGE OF LEVEL OF CONSCIOUSNESS.
[2020-05-28 20:00] VITALS: BP 152/89
--- NOTE | 2020-05-28 20:35 | NUR ---
pt medicated for pain with crushed medications in applesuace norco 5/325mg given. pt tolerated well.
[2020-05-28] MEDS: Melatonin 3mg tablet PO SCH (20:51)
[2020-05-28] MEDS: QUEtiapine 25mg tablet PO SCH (20:52)
[2020-05-28] MEDS: HYDROcodone/acetaminophen 5mg/325mg tablet PO PRN (20:54)
[2020-05-28] MEDS: insulin glargine (Lantus) pen - multi-dose SQ SCH (21:04)
--- NOTE | 2020-05-28 21:30 | NUR ---
pt payne care done and hs care and liens changed with bath and restraints off for repositioning and reapplied. pt not grabbing now and pulling on the staff like he was earlier.
--- NOTE | 2020-05-28 23:10 | NUR ---
pt appears comfortable resting eyes closed without s&s of distress at this time.
[2020-05-29] VITALS: BP 127/60
--- NOTE | 2020-05-29 01:17 | NUR ---
sitter at bedside pt resting eyes closed without changes.
[2020-05-29] MEDS: LORazepam 0.5 MG tablet PO PRN ×3 (03:58→20:00)
[2020-05-29] MEDS: HYDROcodone/acetaminophen 5mg/325mg tablet PO PRN ×2 (03:59→08:32)
--- NOTE | 2020-05-29 04:00 | NUR ---
pt aggitated acting in pain medicated with norco and 0.5 ativan po crushed in applesauce and he took it swallowed and drank water tolerated well. noted he had torn mattress.
--- NOTE | 2020-05-29 05:24 | NUR ---
resting without changes.
[2020-05-29 06:19] LABS: MAGNESIUM 1.6 MG/DL (1.5-2.4); POTASSIUM 4.1 MMOL/L (3.5-5.1)
--- NOTE | 2020-05-29 06:59 | NUR ---
Patient in room ALEX 356. I have received report from YASMEEN Ruth and had the opportunity to ask questions and assume patient care.
[2020-05-29] MEDS: JUVEN Smoothie Arginine/Glut./Ca2+Bmb (Juven 19.3pkt) 240ml cup PO SCH ×2 (07:30→12:30)
[2020-05-29] MEDS: nystatin 15 GM powder TP SCH ×3 (08:00→21:00)
[2020-05-29] MEDS: K and/or MAG REPLACEMENT MC SCH ×2 (08:00→20:14)
[2020-05-29] MEDS: enoxaparin 40mg/0.4ml syringe SQ SCH (08:31)
[2020-05-29] MEDS: lactobacillus rhamnosus 10,000 MMU CELLS/CAPSULE PO SCH ×2 (08:31→20:01)
[2020-05-29] MEDS: QUEtiapine 25mg tablet PO SCH ×2 (08:31→19:59)
[2020-05-29] MEDS: insulin Lispro (HumaLOG) vial - multi-dose SQ SCH ×2 (08:40→19:05)
[2020-05-29 09:26] LABS: BASOPHILS % (AUTO) 0.9 % (0-1); EOSINOPHILS # (AUTO) 0.1 X10'3 (0-0.9); EOSINOPHILS % (AUTO) 2.5 % (0-6); HEMATOCRIT 25.5 % (42.0-52.0); HEMOGLOBIN 8.4 g/dl (14.0-17.9); LYMPHOCYTES # (AUTO) 0.7 X10'3 (1.1-4.8); LYMPHOCYTES % (AUTO) 13.4 % (21-51); MEAN CORPUSCULAR HEMOGLOBIN 29.2 PG (27.0-31.0); MEAN CORPUSCULAR HGB CONC 32.8 g/dL (33.0-36.5); MEAN CORPUSCULAR VOLUME 88.8 FL (78-98); MEAN PLATELET VOLUME 7.2 FL (7.4-10.4); MONOCYTES # (AUTO) 0.3 X10'3 (0-0.9); MONOCYTES % (AUTO) 6.2 % (2-12); NEUTROPHILS # (AUTO) 4.2 X10'3 (1.8-7.7); PLATELET COUNT 242 X10'3 (140-440); RED BLOOD COUNT 2.88 X10'6 (4.70-6.10); RED CELL DISTRIBUTION WIDTH 15.2 % (11.5-14.5); WHITE BLOOD COUNT 5.4 X10'3 (4.5-11.0)
[2020-05-29 09:45] LABS: ALANINE AMINOTRANSFERASE 19 U/L (12-78); ALBUMIN 1.6 G/DL (3.4-5.0); ALBUMIN/GLOBULIN RATIO 0.4 (1.1-1.5); ALKALINE PHOSPHATASE 66 IU/L (46-116); ANION GAP 0 (8-16); ASPARTATE AMINO TRANSFERASE 17 U/L (10-37); BILIRUBIN,TOTAL 0.3 MG/DL (0.1-1.0); BLOOD UREA NITROGEN 14 MG/DL (7-18); BUN/CREATININE RATIO 15.7 (5.4-32.0); CALCIUM 7.8 MG/DL (8.5-10.1); CHLORIDE 106 MMOL/L (99-107); CREATININE 0.89 MG/DL (0.60-1.10); GLUCOSE 153 MG/DL (70-104); POTASSIUM 3.9 MMOL/L (3.5-5.1); SODIUM 140 MMOL/L (135-145); TOTAL CARBON DIOXIDE 33.7 MMOL/L (24-32); TOTAL PROTEIN 5.7 G/DL (6.4-8.2); eGFR 81 ML/MIN
[2020-05-29 11:00] VITALS: BP 115/51
[2020-05-29] MEDS: dextrose ORAL solution 15 GM/59 ML bottle PO PRN (12:15)
[2020-05-29 12:30] VITALS: BP 81/36
[2020-05-29] MEDS ORDERED: normal saline 1000ml 1,000 ML IVB ONE (12:30)
--- NOTE | 2020-05-29 12:30 | NUR ---
Pt had BG of 36 corrected to 82 with [address] Cr present at bedside. Pts unresponsive to stimuli, BP low of 80/29. Fluid bolus started but PIV began leaking and occluded. Changed IV to R upper arm and resumed NS bolus BP now 108/46. Pt wakes beifly but remains disoriented. Will continue to monitor.
[2020-05-29 12:45] VITALS: BP 91/37
[2020-05-29 13:00] VITALS: BP 108/46
--- NOTE | 2020-05-29 17:55 | NUR ---
Problems reprioritized. Patient report given, questions answered & plan of care reviewed with YASMEEN Lambert.
--- NOTE | 2020-05-29 19:43 | NUR ---
pt combative, attempted to calm with no success, orders obtained for restraints, will continue to monitor
[2020-05-29 20:00] VITALS: BP 167/89
[2020-05-29] MEDS: Melatonin 3mg tablet PO SCH (20:00)
[2020-05-29] MEDS: HYDROcodone/acetaminophen 10/325mg tab PO PRN (20:05)
[2020-05-29] MEDS: insulin glargine (Lantus) pen - multi-dose SQ SCH (21:00)
[2020-05-30] VITALS: BP 160/79
[2020-05-30 06:11] LABS: MAGNESIUM 1.6 MG/DL (1.5-2.4)
--- NOTE | 2020-05-30 06:56 | NUR ---
Patient in room ALEX 356. I have received report from Fausto ARANA and had the opportunity to ask questions and assume patient care.
[2020-05-30] MEDS: QUEtiapine 25mg tablet PO SCH ×2 (07:47→19:33)
[2020-05-30] MEDS: lactobacillus rhamnosus 10,000 MMU CELLS/CAPSULE PO SCH ×2 (07:47→19:32)
[2020-05-30] MEDS: enoxaparin 40mg/0.4ml syringe SQ SCH (07:48)
[2020-05-30] MEDS: K and/or MAG REPLACEMENT MC SCH ×2 (08:00→19:30)
[2020-05-30] MEDS: JUVEN Smoothie Arginine/Glut./Ca2+Bmb (Juven 19.3pkt) 240ml cup PO SCH ×2 (08:11→12:58)
[2020-05-30] MEDS: nystatin 15 GM powder TP SCH ×3 (08:34→21:27)
[2020-05-30 09:32] VITALS: BP 170/78
--- NOTE | 2020-05-30 09:55 | NUR ---
PATIENT DID NOT GET TREATED FOR HYPERGLYCEMIA. PATIENT BLOOD GLUCOSE WAS 117 AT LEVEL 3 THERE IS NO TREATMENT, AND PATIENT DID NOT EAT ANY CARBS AT THIS TIME. NO COVERAGE NEEDED.
[2020-05-30 10:12] LABS: BASOPHILS % (AUTO) 0.8 % (0-1); EOSINOPHILS # (AUTO) 0.1 X10'3 (0-0.9); EOSINOPHILS % (AUTO) 1.7 % (0-6); HEMATOCRIT 29.1 % (42.0-52.0); HEMOGLOBIN 9.6 g/dl (14.0-17.9); LYMPHOCYTES # (AUTO) 0.7 X10'3 (1.1-4.8); MEAN CORPUSCULAR HEMOGLOBIN 29.6 PG (27.0-31.0); MEAN CORPUSCULAR VOLUME 89.9 FL (78-98); MEAN PLATELET VOLUME 7.2 FL (7.4-10.4); MONOCYTES # (AUTO) 0.4 X10'3 (0-0.9); MONOCYTES % (AUTO) 6.1 % (2-12); NEUTROPHILS # (AUTO) 4.8 X10'3 (1.8-7.7); NEUTROPHILS % (AUTO) 79.4 % (42-75); PLATELET COUNT 233 X10'3 (140-440); RED BLOOD COUNT 3.24 X10'6 (4.70-6.10); RED CELL DISTRIBUTION WIDTH 15.3 % (11.5-14.5); WHITE BLOOD COUNT 6.1 X10'3 (4.5-11.0)
[2020-05-30 10:26] LABS: ALANINE AMINOTRANSFERASE 21 U/L (12-78); ALBUMIN 1.8 G/DL (3.4-5.0); ALBUMIN/GLOBULIN RATIO 0.4 (1.1-1.5); ALKALINE PHOSPHATASE 75 IU/L (46-116); ANION GAP 3 (8-16); ASPARTATE AMINO TRANSFERASE 21 U/L (10-37); BILIRUBIN,TOTAL 0.4 MG/DL (0.1-1.0); BLOOD UREA NITROGEN 13 MG/DL (7-18); BUN/CREATININE RATIO 18.6 (5.4-32.0); CALCIUM 8.1 MG/DL (8.5-10.1); CHLORIDE 104 MMOL/L (99-107); GLUCOSE 160 MG/DL (70-104); POTASSIUM 4.3 MMOL/L (3.5-5.1); SODIUM 138 MMOL/L (135-145); TOTAL PROTEIN 6.4 G/DL (6.4-8.2); eGFR > 90 ML/MIN
[2020-05-30 11:22] VITALS: BP 166/78
--- NOTE | 2020-05-30 16:00 | NUR ---
BLADDER TRAINING STARTED PER MD SUGGESTION. PATIENT TUBE WAS CLAMPED AT 1600 AND WILL BE RELEASED AT 2000 THEN RECLAMPED.
[2020-05-30] MEDS: HYDROcodone/acetaminophen 10/325mg tab PO PRN ×2 (16:08→21:27)
--- NOTE | 2020-05-30 18:25 | NUR ---
Problems reprioritized. Patient report given, questions answered & plan of care reviewed with Candis ARANA.
--- NOTE | 2020-05-30 18:30 | NUR ---
Received report from primary care nurse William RN. Patient is awake and alert on room air in no apparent distress. Patient is being fed at this time by the sitter. Restraints on properly CSMs intact. Will continue to monitor for changes.
[2020-05-30] MEDS: Melatonin 3mg tablet PO SCH (19:32)
[2020-05-30 20:00] VITALS: BP 118/90
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
[2020-05-30] MEDS: insulin glargine (Lantus) pen - multi-dose SQ SCH (21:00)
[2020-05-30] MEDS: LORazepam 0.5 MG tablet PO PRN (21:26)
--- NOTE | 2020-05-31 06:24 | NUR ---
Reported off to Latoya ARANA. Patient is resting with relaxed and unlabored respirations on room air. In no apparent distress. Call light and items of frequent use within reach.
--- NOTE | 2020-05-31 06:33 | NUR ---
Patient in room ALEX 356B. I have received report from YASMEEN GILLESPIE and had the opportunity to ask questions and assume patient care.
[2020-05-31 07:00] VITALS: BP 169/56
[2020-05-31] MEDS: JUVEN Smoothie Arginine/Glut./Ca2+Bmb (Juven 19.3pkt) 240ml cup PO SCH ×2 (07:30→12:30)
[2020-05-31] MEDS: K and/or MAG REPLACEMENT MC SCH ×2 (08:00→19:32)
--- NOTE | 2020-05-31 08:30 | NUR ---
PATIENT WAS TRYING TO GET OUT OF BED, UNABLE TO STAND UP THE AIDE LOWERED PATIENT TO FLOOR. PATIENT REFUSED HELP TO GET UP TO BED. PATIENT CRAWLED ON HANDS AND KNEES AROUND TO OTHER SIDE OF BED. SECURITY WAS CALLED AND EVENTUALLY HELPED PATIENT BACK TO BED. PATIENT WAS PULLED UP AND STRAITENED IN BED AND RESTRAINTS REAPPLIED. NOTIFIED.
[2020-05-31] MEDS: lactobacillus rhamnosus 10,000 MMU CELLS/CAPSULE PO SCH ×2 (08:54→19:32)
[2020-05-31] MEDS: QUEtiapine 25mg tablet PO SCH ×2 (08:54→19:32)
[2020-05-31] MEDS: enoxaparin 40mg/0.4ml syringe SQ SCH (09:02)
[2020-05-31] MEDS: insulin Lispro (HumaLOG) vial - multi-dose SQ SCH ×2 (09:07→13:42)
[2020-05-31 09:08] LABS: BASOPHILS % (AUTO) 0.8 % (0-1); EOSINOPHILS # (AUTO) 0.1 X10'3 (0-0.9); EOSINOPHILS % (AUTO) 2.5 % (0-6); HEMATOCRIT 29.4 % (42.0-52.0); HEMOGLOBIN 9.7 g/dl (14.0-17.9); LYMPHOCYTES # (AUTO) 0.7 X10'3 (1.1-4.8); LYMPHOCYTES % (AUTO) 13.1 % (21-51); MEAN CORPUSCULAR HEMOGLOBIN 29.7 PG (27.0-31.0); MEAN CORPUSCULAR HGB CONC 32.8 g/dL (33.0-36.5); MEAN CORPUSCULAR VOLUME 90.5 FL (78-98); MEAN PLATELET VOLUME 7.4 FL (7.4-10.4); MONOCYTES # (AUTO) 0.4 X10'3 (0-0.9); MONOCYTES % (AUTO) 7.2 % (2-12); NEUTROPHILS # (AUTO) 4.1 X10'3 (1.8-7.7); NEUTROPHILS % (AUTO) 76.4 % (42-75); PLATELET COUNT 209 X10'3 (140-440); RED BLOOD COUNT 3.25 X10'6 (4.70-6.10); RED CELL DISTRIBUTION WIDTH 15.5 % (11.5-14.5); WHITE BLOOD COUNT 5.4 X10'3 (4.5-11.0)
[2020-05-31 09:31] LABS: ALANINE AMINOTRANSFERASE 16 U/L (12-78); ALBUMIN 1.9 G/DL (3.4-5.0); ALBUMIN/GLOBULIN RATIO 0.4 (1.1-1.5); ALKALINE PHOSPHATASE 75 IU/L (46-116); ANION GAP 5 (8-16); ASPARTATE AMINO TRANSFERASE 19 U/L (10-37); BILIRUBIN,TOTAL 0.5 MG/DL (0.1-1.0); BLOOD UREA NITROGEN 13 MG/DL (7-18); CALCIUM 8.4 MG/DL (8.5-10.1); CHLORIDE 103 MMOL/L (99-107); CREATININE 0.93 MG/DL (0.60-1.10); GLUCOSE 222 MG/DL (70-104); SODIUM 138 MMOL/L (135-145); TOTAL CARBON DIOXIDE 30.2 MMOL/L (24-32); TOTAL PROTEIN 6.4 G/DL (6.4-8.2); eGFR 77 ML/MIN
[2020-05-31] MEDS: nystatin 15 GM powder TP SCH ×3 (10:22→19:42)
--- NOTE | 2020-05-31 11:24 | NUR ---
PATIENT WOULD NOT LET ME LISTEN TO BACK FOR LUNG SOUNDS Addendum: 05/31/20 at 1137 by Zoe Gaspar RN Amended: Links added.
[2020-05-31 12:10] VITALS: BP 118/43
--- NOTE | 2020-05-31 12:13 | NUR ---
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 Patient's PO intake has declined, documented with average 0-25% PO intake with average 75% PO intake of ONS however with 0-25% x 4 most recent ONS. Pt documented as confused and A/O x1, currently in restraints with a sitter at bedside, likely impacting PO intake. Pt documented to not be receiving assistance with meals despite being in restraints. D/w RN who reports pt temporarily partially taken out of restraints during meal times so he can feed himself however RN assures RD that he will receive assistance with feeding if this is unable to happen. D/w dietary to send yogurt and cottage cheese with meals to provide additional food options and trial a sandwich for dinner tonight. [facility] 05/29. Will continue to follow closely. Rec: 1. continue carb controlled/heart healthy diet; chopped all/finger foods 2. Consider diet liberalization to regular given poor PO hx 3. Encourage PO intake; assist with meals 4. strawberry Darien smoothie BIDBL for wounds; May benefit from restarting additional ONS 5. Trial yogurt BIDBD, cottage cheese q lunch 6. MVI for wound healing 7. routine bowel care 8. Scaled weights per rx Addendum: 05/31/20 at [address] Amended: Links added.
--- NOTE | 2020-05-31 15:23 | NUR ---
PATIENT IS NOT CONSUMING ENOUGH FOOD TO GET AN ACCURATE CARB COUNT, PATIENT IS TAKING BITES OF ALL PARTS OF MEAL
[2020-05-31] MEDS: LORazepam 0.5 MG tablet PO PRN ×2 (16:55→20:56)
[2020-05-31 18:00] VITALS: BP 184/64
--- NOTE | 2020-05-31 18:25 | NUR ---
Received report from primary care nurse Zoe ARANA. Assumed patient care. Patient is awake and alert on room air in no apparent distress. Restraints assessed and re Addendum: 06/01/20 at 0445 by Candis Martinez RN Received report from primary care nurse Zoe ARANA. Assumed patient care. Patient is awake and alert on room air in no apparent distress. Restraints assessed and released and CSMs intact. Sitter is at the bedside. Will continue to monitor for changes.
--- NOTE | 2020-05-31 18:30 | NUR ---
BY 0930 PATIENT HAD NOT URINATED, BLADDER SCAN SHOWED [address] GOT AN ORDER FOR STRAIGHT CATH IF BLADDER SCAN SHOWED 400 ML OR MORE, DR ALSO SUGGESTED TO STAND PATIENT OR USE A BED SIDE COMMODE. PATIENT WAS NOT ABLE TO STAND SO WE COULD NOT USE BED SIDE COMMODE. ENCOURAGED PATIENT TO URINARY EVERY HOUR TO TWO HOURS WITHOUT SUCCESS. IN THE 12 HOUR BLADDER SCAN REVEALED 322 MLS IN BLADDER, IN THE 1600 HOUR BLADDER SCAN SHOWED 393 AND IN 1700 HOUR SHOWED 524ML. I STRAIT CATHED PATIENT AND GOT 700ML OF URINE OUT, PAGED . ORDERED CATHETER TO BE PLACED, PLACED CATHETER WITH ON COMING NURSE IN 1800 HOUR.
--- NOTE | 2020-05-31 18:38 | NUR ---
Problems reprioritized. Patient report given, questions answered & plan of care reviewed with YASMEEN GILLESPIE.
--- NOTE | 2020-05-31 18:42 | NUR ---
Problems reprioritized. Patient report given, questions answered & plan of care reviewed with YASMEEN GILLESPIE.
[2020-05-31] MEDS: HYDROcodone/acetaminophen 10/325mg tab PO PRN (19:32)
[2020-05-31] MEDS: Melatonin 3mg tablet PO SCH (19:32)
[2020-05-31] MEDS: tamsulosin 0.4mg capsule PO SCH (20:56)
[2020-06-01 03:30] VITALS: BP 119/56
--- NOTE | 2020-06-01 06:02 | NUR ---
Reported off to Zoe ARANA. Patient is resting with relaxed and unlabored respirations on room air. In no apparent distress. Sitter is at the bedside.
--- NOTE | 2020-06-01 06:09 | NUR ---
Patient in room ALEX 356B. I have received report from YASMEEN GILLESPIE and had the opportunity to ask questions and assume patient care.
[2020-06-01 06:43] LABS: BASOPHILS # (AUTO) 0.1 X10'3 (0-0.2); BASOPHILS % (AUTO) 1.3 % (0-1); EOSINOPHILS # (AUTO) 0.2 X10'3 (0-0.9); EOSINOPHILS % (AUTO) 4.6 % (0-6); HEMATOCRIT 28.2 % (42.0-52.0); HEMOGLOBIN 9.3 g/dl (14.0-17.9); LYMPHOCYTES # (AUTO) 0.9 X10'3 (1.1-4.8); LYMPHOCYTES % (AUTO) 21.8 % (21-51); MEAN CORPUSCULAR HEMOGLOBIN 29.3 PG (27.0-31.0); MEAN CORPUSCULAR VOLUME 88.7 FL (78-98); MEAN PLATELET VOLUME 7.7 FL (7.4-10.4); MONOCYTES # (AUTO) 0.4 X10'3 (0-0.9); MONOCYTES % (AUTO) 9.8 % (2-12); NEUTROPHILS # (AUTO) 2.6 X10'3 (1.8-7.7); NEUTROPHILS % (AUTO) 62.5 % (42-75); PLATELET COUNT 219 X10'3 (140-440); RED BLOOD COUNT 3.18 X10'6 (4.70-6.10); RED CELL DISTRIBUTION WIDTH 15.7 % (11.5-14.5); WHITE BLOOD COUNT 4.1 X10'3 (4.5-11.0)
[2020-06-01 06:44] LABS: ALANINE AMINOTRANSFERASE 17 U/L (12-78); ALBUMIN/GLOBULIN RATIO 0.5 (1.1-1.5); ALKALINE PHOSPHATASE 74 IU/L (46-116); ANION GAP 6 (8-16); ASPARTATE AMINO TRANSFERASE 19 U/L (10-37); BILIRUBIN,TOTAL 0.5 MG/DL (0.1-1.0); BLOOD UREA NITROGEN 12 MG/DL (7-18); BUN/CREATININE RATIO 14.5 (5.4-32.0); CALCIUM 8.5 MG/DL (8.5-10.1); CHLORIDE 104 MMOL/L (99-107); CREATININE 0.83 MG/DL (0.60-1.10); GLUCOSE 155 MG/DL (70-104); POTASSIUM 3.8 MMOL/L (3.5-5.1); SODIUM 139 MMOL/L (135-145); TOTAL CARBON DIOXIDE 29.4 MMOL/L (24-32); TOTAL PROTEIN 6.4 G/DL (6.4-8.2); eGFR 88 ML/MIN
[2020-06-01 07:00] VITALS: BP 152/69
[2020-06-01] MEDS: K and/or MAG REPLACEMENT MC SCH ×2 (08:00→20:00)
[2020-06-01] MEDS: QUEtiapine 25mg tablet PO SCH ×2 (08:49→21:19)
[2020-06-01] MEDS: lactobacillus rhamnosus 10,000 MMU CELLS/CAPSULE PO SCH ×2 (08:49→21:18)
[2020-06-01] MEDS: enoxaparin 40mg/0.4ml syringe SQ SCH (08:50)
[2020-06-01] MEDS: nystatin 15 GM powder TP SCH ×3 (09:28→21:24)
[2020-06-01] MEDS: JUVEN Smoothie Arginine/Glut./Ca2+Bmb (Juven 19.3pkt) 240ml cup PO SCH ×2 (09:28→12:30)
[2020-06-01] MEDS: insulin Lispro (HumaLOG) vial - multi-dose SQ SCH ×2 (09:35→19:23)
[2020-06-01 11:00] VITALS: BP 139/82
[2020-06-01] MEDS: QUEtiapine 25mg tablet PO PRN (13:07)
[2020-06-01] MEDS: HYDROcodone/acetaminophen 10/325mg tab PO PRN (16:55)
--- NOTE | 2020-06-01 18:30 | NUR ---
Problems reprioritized. Patient report given, questions answered & plan of care reviewed with JUAN MIGUEL RN.
[2020-06-01 19:30] VITALS: BP 125/53
[2020-06-01] MEDS: tamsulosin 0.4mg capsule PO SCH (21:18)
[2020-06-01] MEDS: Melatonin 3mg tablet PO SCH (21:18)
[2020-06-02] VITALS: BP 102/33
[2020-06-02 06:05] LABS: BASOPHILS % (AUTO) 0.9 % (0-1); EOSINOPHILS # (AUTO) 0.2 X10'3 (0-0.9); EOSINOPHILS % (AUTO) 3.9 % (0-6); HEMATOCRIT 29.2 % (42.0-52.0); HEMOGLOBIN 9.7 g/dl (14.0-17.9); LYMPHOCYTES # (AUTO) 0.8 X10'3 (1.1-4.8); MEAN CORPUSCULAR HEMOGLOBIN 29.6 PG (27.0-31.0); MEAN CORPUSCULAR HGB CONC 33.3 g/dL (33.0-36.5); MEAN CORPUSCULAR VOLUME 88.9 FL (78-98); MEAN PLATELET VOLUME 7.8 FL (7.4-10.4); MONOCYTES # (AUTO) 0.4 X10'3 (0-0.9); MONOCYTES % (AUTO) 8.3 % (2-12); NEUTROPHILS # (AUTO) 3.5 X10'3 (1.8-7.7); NEUTROPHILS % (AUTO) 70.9 % (42-75); PLATELET COUNT 202 X10'3 (140-440); RED BLOOD COUNT 3.28 X10'6 (4.70-6.10); RED CELL DISTRIBUTION WIDTH 15.5 % (11.5-14.5); WHITE BLOOD COUNT 4.9 X10'3 (4.5-11.0)
[2020-06-02 06:07] LABS: ALANINE AMINOTRANSFERASE 19 U/L (12-78); ALBUMIN 2.1 G/DL (3.4-5.0); ALBUMIN/GLOBULIN RATIO 0.5 (1.1-1.5); ALKALINE PHOSPHATASE 74 IU/L (46-116); ANION GAP 5 (8-16); ASPARTATE AMINO TRANSFERASE 27 U/L (10-37); BILIRUBIN,TOTAL 0.5 MG/DL (0.1-1.0); BLOOD UREA NITROGEN 11 MG/DL (7-18); BUN/CREATININE RATIO 13.4 (5.4-32.0); CALCIUM 8.6 MG/DL (8.5-10.1); CHLORIDE 103 MMOL/L (99-107); CREATININE 0.82 MG/DL (0.60-1.10); GLUCOSE 141 MG/DL (70-104); SODIUM 139 MMOL/L (135-145); TOTAL CARBON DIOXIDE 30.8 MMOL/L (24-32); TOTAL PROTEIN 6.7 G/DL (6.4-8.2); eGFR 89 ML/MIN
--- NOTE | 2020-06-02 07:27 | NUR ---
RESTRAINTS REMOVED AT FIRST ASSESSMENT ON SHIFT. CMS INTACT. NO INJURY NOTED. PT CONFUSED BUT RESTING AT THIS TIME. CONTACTED TO RENEW ORDER PER CHRIS RN. SITTER IN ROOM FOR RESTRAINT REMOVAL TRIAL. WILL CONT. TO MONITOR. SITTER AWARE OF PT. COMBATIVENESS, AND IS AWARE RESTRAINTS ARE REMOVED. Addendum: 06/02/20 at 9474 by Kelli Spear RN Amended: Links added.
[2020-06-02 07:57] VITALS: BP 137/50
[2020-06-02] MEDS: JUVEN Smoothie Arginine/Glut./Ca2+Bmb (Juven 19.3pkt) 240ml cup PO SCH ×2 (07:58→13:22)
[2020-06-02] MEDS: QUEtiapine 25mg tablet PO SCH ×2 (07:59→20:01)
[2020-06-02] MEDS: lactobacillus rhamnosus 10,000 MMU CELLS/CAPSULE PO SCH ×2 (07:59→20:01)
[2020-06-02] MEDS: enoxaparin 40mg/0.4ml syringe SQ SCH (08:00)
[2020-06-02] MEDS: K and/or MAG REPLACEMENT MC SCH ×2 (08:00→20:00)
[2020-06-02] MEDS: nystatin 15 GM powder TP SCH ×3 (08:08→20:06)
[2020-06-02] MEDS: insulin Lispro (HumaLOG) vial - multi-dose SQ SCH ×3 (09:49→19:01)
--- NOTE | 2020-06-02 10:34 | NUR ---
REPORT FROM ANUEL IS THAT PT. IS STILL DOING WELL WITHOUT RESTRAINTS ON. HE HAS BEEN ACUTELY CONFUSED AND HAS BEEN GRASPING FOR THINGS, HOWEVER HE HAS NOT BEEN A HARM TO HIMSELF OR OTHER AND IS ABLE TO BE REORIENTATED TO SAFETY WITH DENISSETER.
[2020-06-02 11:00] VITALS: BP 119/50
[2020-06-02 18:00] VITALS: BP 112/40
--- NOTE | 2020-06-02 18:35 | NUR ---
Patient in room ALEX 356. I have received report from Kelli ARANA and had the opportunity to ask questions and assume patient care.
--- NOTE | 2020-06-02 19:07 | NUR ---
Gave report to Elizabeth ARANA. Pt. in room with sitter at bedside. No needs at this time.
[2020-06-02] MEDS: tamsulosin 0.4mg capsule PO SCH (20:01)
[2020-06-02] MEDS: Melatonin 3mg tablet PO SCH (20:01)
--- NOTE | 2020-06-02 21:00 | NUR ---
pt pulled out IV. pt pulling at payne catheter. educated pt to leave his lines alone and pt continues to pull at his lines. pt became upset with PCT and started yelling and swinging at the PCT and then calmed down. about 15 min later pt got upset again, started pulling at his FC, swinging his extremities, throwing items at the PCT. Unable to get the pt to comply and listen at this time. will call MD for restraints to be renewed and no IV order. pt educated about restraints, restraints were applied and he became very agitated at first; however, once the restraints were on pt stated "okay do what you need." will continue to monitor pt. 2134: pt is still having outburst of yelling. will continue to monitor.
--- NOTE | 2020-06-02 21:25 | NUR ---
paged "[id number] [facility] [place] 05/14 sepsis. pulled out IV, no IV meds due can I get a no IV order. Can I also get restraints renewed. pulling at lines, swinging at staff, and throwing things." will continue to monitor.
[2020-06-03] VITALS: BP 125/51
--- NOTE | 2020-06-03 03:51 | NUR ---
pt has not slept all night. pt is restless with moment of agitation and yelling. will give medications as ordered. will continue to monitor.
[2020-06-03] MEDS: QUEtiapine 25mg tablet PO PRN ×2 (03:54→15:44)
--- NOTE | 2020-06-03 06:45 | NUR ---
Problems reprioritized. Patient report given, questions answered & plan of care reviewed with Jolie ARANA.
--- NOTE | 2020-06-03 06:46 | NUR ---
Patient in room ALEX 356. I have received report from Elizabeth ARANA and had the opportunity to ask questions and assume patient care.
[2020-06-03 07:10] LABS: BASOPHILS % (AUTO) 0.6 % (0-1); EOSINOPHILS # (AUTO) 0.2 X10'3 (0-0.9); EOSINOPHILS % (AUTO) 4.1 % (0-6); HEMATOCRIT 28.5 % (42.0-52.0); HEMOGLOBIN 9.6 g/dl (14.0-17.9); LYMPHOCYTES # (AUTO) 0.8 X10'3 (1.1-4.8); LYMPHOCYTES % (AUTO) 17.4 % (21-51); MEAN CORPUSCULAR HEMOGLOBIN 30.2 PG (27.0-31.0); MEAN CORPUSCULAR HGB CONC 33.8 g/dL (33.0-36.5); MEAN CORPUSCULAR VOLUME 89.4 FL (78-98); MEAN PLATELET VOLUME 7.9 FL (7.4-10.4); MONOCYTES # (AUTO) 0.4 X10'3 (0-0.9); MONOCYTES % (AUTO) 8.4 % (2-12); NEUTROPHILS # (AUTO) 3.3 X10'3 (1.8-7.7); NEUTROPHILS % (AUTO) 69.5 % (42-75); PLATELET COUNT 199 X10'3 (140-440); RED BLOOD COUNT 3.19 X10'6 (4.70-6.10); RED CELL DISTRIBUTION WIDTH 15.7 % (11.5-14.5); WHITE BLOOD COUNT 4.8 X10'3 (4.5-11.0)
[2020-06-03 07:30] LABS: ALANINE AMINOTRANSFERASE 18 U/L (12-78); ALBUMIN 2.2 G/DL (3.4-5.0); ALBUMIN/GLOBULIN RATIO 0.5 (1.1-1.5); ALKALINE PHOSPHATASE 82 IU/L (46-116); ANION GAP 6 (8-16); ASPARTATE AMINO TRANSFERASE 24 U/L (10-37); BILIRUBIN,TOTAL 0.6 MG/DL (0.1-1.0); BLOOD UREA NITROGEN 14 MG/DL (7-18); BUN/CREATININE RATIO 17.1 (5.4-32.0); CALCIUM 8.7 MG/DL (8.5-10.1); CHLORIDE 103 MMOL/L (99-107); CREATININE 0.82 MG/DL (0.60-1.10); GLUCOSE 180 MG/DL (70-104); POTASSIUM 3.8 MMOL/L (3.5-5.1); SODIUM 138 MMOL/L (135-145); TOTAL CARBON DIOXIDE 29.1 MMOL/L (24-32); TOTAL PROTEIN 6.9 G/DL (6.4-8.2); eGFR 89 ML/MIN
[2020-06-03] MEDS: JUVEN Smoothie Arginine/Glut./Ca2+Bmb (Juven 19.3pkt) 240ml cup PO SCH ×2 (07:30→12:30)
[2020-06-03 07:53] VITALS: BP 121/56
[2020-06-03] MEDS: K and/or MAG REPLACEMENT MC SCH ×2 (08:00→20:00)
[2020-06-03] MEDS: QUEtiapine 25mg tablet PO SCH (08:49)
[2020-06-03] MEDS: lactobacillus rhamnosus 10,000 MMU CELLS/CAPSULE PO SCH ×2 (08:49→20:07)
[2020-06-03] MEDS: enoxaparin 40mg/0.4ml syringe SQ SCH (08:50)
[2020-06-03] MEDS: nystatin 15 GM powder TP SCH ×3 (09:04→20:07)
[2020-06-03] MEDS: insulin Lispro (HumaLOG) vial - multi-dose SQ SCH ×2 (09:13→19:12)
--- NOTE | 2020-06-03 09:18 | NUR ---
Pt finished eating breakfast at 0900.
[2020-06-03] MEDS: dextrose ORAL solution 15 GM/59 ML bottle PO PRN (12:13)
--- NOTE | 2020-06-03 14:19 | NUR ---
F/u (06/03): Pt PO 75-100% meals yesterday fluctuating from 0%/refusals to occasional 100% at times. PO 75-100% avg most Darien smoothies for wound healing and receiving finger foods. LBM 05/29; RN reports pt has had BM today. Receiving routine colace. Constipation likely impacting fluctuating PO as well as dementia. Would benefit from Glucerna ONS added to dinner given liquid PO tolerance and fluctuating meals PO; MD notified. Will continue to monitor. Rec: 1. continue carb controlled/heart healthy diet; chopped all/finger foods 2. Consider diet liberalization to regular given poor PO hx 3. Encourage PO intake; assist with meals 4. strawberry Darien smoothie BIDBL for wounds; Glucerna at dinners 5. Trial yogurt BIDBD, cottage cheese q lunch 6. MVI for wound healing 7. routine bowel care 8. Scaled weights per rx Addendum: 06/03/20 at [address] Amended: Links added.
--- NOTE | 2020-06-03 16:25 | NUR ---
Dr Fisher wanted this RN to phone [facility] advertising assistant to have her assess pt's amputation site to see if heidi were ready for removal. Per Greta elevator examiner and adjuster of [facility], Dr Mercado has strict orders/procedures regarding staple removal on his patients and likes to remove them himself. Advised to wait until Dr Mercado comes in to see patient on Thursday.
[2020-06-03] MEDS ORDERED: NUT.TX.GLUC.INTOLER,LAC-FR,SOY (GLUCERNA) 237 ML PO SCH (17:00)
--- NOTE | 2020-06-03 18:30 | NUR ---
Problems reprioritized. Patient report given, questions answered & plan of care reviewed with Quynh ARANA.
--- NOTE | 2020-06-03 18:57 | NUR ---
Patient in room ALEX 356. I have received report from Jolie ARANA and had the opportunity to ask questions and assume patient care.
[2020-06-03 19:58] VITALS: BP 142/76
[2020-06-03] MEDS: quetiapine 100mg tablet PO SCH (20:07)
[2020-06-03] MEDS: Melatonin 3mg tablet PO SCH (20:07)
[2020-06-03] MEDS: tamsulosin 0.4mg capsule PO SCH (20:07)
[2020-06-03] MEDS: HYDROcodone/acetaminophen 10/325mg tab PO PRN (23:42)
[2020-06-04] VITALS: BP 136/52
--- NOTE | 2020-06-04 05:24 | NUR ---
Attempted to put a pillow under left leg to elevate several times throughout the night and also alternating from right and left side to offload pressure on his bottom but he wiggles and pushes until he gets pillows out.
--- NOTE | 2020-06-04 06:12 | NUR ---
Problems reprioritized. Patient report given, questions answered & plan of care reviewed with Jolie ARANA.
--- NOTE | 2020-06-04 06:53 | NUR ---
Patient in room ALEX 356. I have received report from Quynh ARANA and had the opportunity to ask questions and assume patient care.
[2020-06-04] MEDS: JUVEN Smoothie Arginine/Glut./Ca2+Bmb (Juven 19.3pkt) 240ml cup PO SCH ×2 (07:30→12:30)
[2020-06-04 07:35] LABS: BASOPHILS % (AUTO) 0.3 % (0-1); EOSINOPHILS # (AUTO) 0.3 X10'3 (0-0.9); EOSINOPHILS % (AUTO) 7.8 % (0-6); HEMATOCRIT 27.6 % (42.0-52.0); HEMOGLOBIN 9.3 g/dl (14.0-17.9); LYMPHOCYTES # (AUTO) 0.8 X10'3 (1.1-4.8); LYMPHOCYTES % (AUTO) 22.5 % (21-51); MEAN CORPUSCULAR HGB CONC 33.6 g/dL (33.0-36.5); MEAN CORPUSCULAR VOLUME 89.3 FL (78-98); MEAN PLATELET VOLUME 7.5 FL (7.4-10.4); MONOCYTES # (AUTO) 0.4 X10'3 (0-0.9); MONOCYTES % (AUTO) 10.4 % (2-12); PLATELET COUNT 205 X10'3 (140-440); RED CELL DISTRIBUTION WIDTH 16.1 % (11.5-14.5); WHITE BLOOD COUNT 3.5 X10'3 (4.5-11.0)
[2020-06-04] MEDS: enoxaparin 40mg/0.4ml syringe SQ SCH (07:36)
[2020-06-04 07:50] LABS: ALANINE AMINOTRANSFERASE 17 U/L (12-78); ALBUMIN 2.1 G/DL (3.4-5.0); ALBUMIN/GLOBULIN RATIO 0.5 (1.1-1.5); ALKALINE PHOSPHATASE 76 IU/L (46-116); ANION GAP 4 (8-16); ASPARTATE AMINO TRANSFERASE 20 U/L (10-37); BILIRUBIN,TOTAL 0.5 MG/DL (0.1-1.0); BLOOD UREA NITROGEN 14 MG/DL (7-18); BUN/CREATININE RATIO 18.7 (5.4-32.0); CALCIUM 8.4 MG/DL (8.5-10.1); CHLORIDE 105 MMOL/L (99-107); CREATININE 0.75 MG/DL (0.60-1.10); GLUCOSE 194 MG/DL (70-104); POTASSIUM 3.8 MMOL/L (3.5-5.1); SODIUM 139 MMOL/L (135-145); TOTAL CARBON DIOXIDE 30.2 MMOL/L (24-32); TOTAL PROTEIN 6.5 G/DL (6.4-8.2); eGFR > 90 ML/MIN
[2020-06-04 08:00] VITALS: BP 130/72
[2020-06-04] MEDS: quetiapine 100mg tablet PO SCH ×2 (08:00→21:06)
[2020-06-04] MEDS: lactobacillus rhamnosus 10,000 MMU CELLS/CAPSULE PO SCH ×2 (08:00→21:06)
[2020-06-04] MEDS: nystatin 15 GM powder TP SCH ×3 (08:00→21:07)
[2020-06-04] MEDS: K and/or MAG REPLACEMENT MC SCH ×2 (08:00→20:00)
[2020-06-04] MEDS: insulin Lispro (HumaLOG) vial - multi-dose SQ SCH ×2 (09:35→18:52)
[2020-06-04 11:00] VITALS: BP 133/72
--- NOTE | 2020-06-04 13:42 | NUR ---
Pt has not eaten today, is a very brittle diabetic and falls into critical BG levels. Accucheck was 152, no coverage given. telecommunications network planner notified.
--- NOTE | 2020-06-04 14:35 | NUR ---
a.m. meds not given, pt has been sleeping throughout the day, MD aware.
--- NOTE | 2020-06-04 18:38 | NUR ---
Problems reprioritized. Patient report given, questions answered & plan of care reviewed with Quynh ARANA.
--- NOTE | 2020-06-04 18:58 | NUR ---
Patient in room ALEX 356. I have received report from Jolie ARANA and had the opportunity to ask questions and assume patient care.
[2020-06-04 20:00] VITALS: BP 157/70
[2020-06-04] MEDS: tamsulosin 0.4mg capsule PO SCH (21:06)
[2020-06-04] MEDS: Melatonin 3mg tablet PO SCH (21:06)
--- NOTE | 2020-06-04 21:16 | NUR ---
Pt refused accucheck and would spit and kick when attempted.
[2020-06-04] MEDS: QUEtiapine 25mg tablet PO PRN (22:39)
--- NOTE | 2020-06-05 00:26 | NUR ---
Pt refused midnight vitals
[2020-06-05 05:22] LABS: BASOPHILS % (AUTO) 1.1 % (0-1); EOSINOPHILS # (AUTO) 0.3 X10'3 (0-0.9); EOSINOPHILS % (AUTO) 6.8 % (0-6); HEMATOCRIT 30.1 % (42.0-52.0); HEMOGLOBIN 9.9 g/dl (14.0-17.9); LYMPHOCYTES # (AUTO) 0.9 X10'3 (1.1-4.8); LYMPHOCYTES % (AUTO) 21.7 % (21-51); MEAN CORPUSCULAR HEMOGLOBIN 29.3 PG (27.0-31.0); MEAN CORPUSCULAR VOLUME 88.7 FL (78-98); MONOCYTES # (AUTO) 0.4 X10'3 (0-0.9); MONOCYTES % (AUTO) 8.8 % (2-12); NEUTROPHILS # (AUTO) 2.7 X10'3 (1.8-7.7); NEUTROPHILS % (AUTO) 61.6 % (42-75); PLATELET COUNT 260 X10'3 (140-440); RED BLOOD COUNT 3.39 X10'6 (4.70-6.10); RED CELL DISTRIBUTION WIDTH 15.8 % (11.5-14.5); WHITE BLOOD COUNT 4.3 X10'3 (4.5-11.0)
[2020-06-05 05:41] LABS: ALANINE AMINOTRANSFERASE 18 U/L (12-78); ALBUMIN 2.3 G/DL (3.4-5.0); ALBUMIN/GLOBULIN RATIO 0.5 (1.1-1.5); ALKALINE PHOSPHATASE 83 IU/L (46-116); ANION GAP 4 (8-16); ASPARTATE AMINO TRANSFERASE 19 U/L (10-37); BILIRUBIN,TOTAL 0.5 MG/DL (0.1-1.0); BLOOD UREA NITROGEN 12 MG/DL (7-18); CALCIUM 8.9 MG/DL (8.5-10.1); CHLORIDE 103 MMOL/L (99-107); CREATININE 0.92 MG/DL (0.60-1.10); GLUCOSE 180 MG/DL (70-104); POTASSIUM 3.7 MMOL/L (3.5-5.1); SODIUM 138 MMOL/L (135-145); TOTAL CARBON DIOXIDE 30.8 MMOL/L (24-32); eGFR 78 ML/MIN
--- NOTE | 2020-06-05 06:36 | NUR ---
Problems reprioritized. Patient report given, questions answered & plan of care reviewed with Karen ARANA.
[2020-06-05 07:00] VITALS: BP 130/64
[2020-06-05] MEDS: lactobacillus rhamnosus 10,000 MMU CELLS/CAPSULE PO SCH ×2 (07:29→19:12)
[2020-06-05] MEDS: quetiapine 100mg tablet PO SCH ×2 (07:29→19:12)
[2020-06-05] MEDS: JUVEN Smoothie Arginine/Glut./Ca2+Bmb (Juven 19.3pkt) 240ml cup PO SCH ×2 (07:30→12:40)
[2020-06-05] MEDS: K and/or MAG REPLACEMENT MC SCH ×2 (07:30→20:00)
[2020-06-05] MEDS: enoxaparin 40mg/0.4ml syringe SQ SCH (07:30)
[2020-06-05] MEDS: nystatin 15 GM powder TP SCH ×3 (07:36→21:27)
[2020-06-05] MEDS: insulin Lispro (HumaLOG) vial - multi-dose SQ SCH ×3 (09:37→19:14)
--- NOTE | 2020-06-05 10:10 | NUR ---
PHONE CALL TO DR. 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 HE SAID HE LIKES TO LEAVE THEM IN FOR 3 WEEKS AND TOD CALDERON WILL ROUND ON THIS PATIENT AND ASSESS INCISION SITE.
[2020-06-05] MEDS: docusate sod 100mg capsule PO SCH ×2 (10:30→21:27)
[2020-06-05 11:00] VITALS: BP 106/49
--- NOTE | 2020-06-05 18:01 | NUR ---
Problems reprioritized. Patient report given, questions answered & plan of care reviewed with YASMEEN Doe.
--- NOTE | 2020-06-05 18:30 | NUR ---
Patient in room ALEX 356. I have received report from YASMEEN Jones and had the opportunity to ask questions and assume patient care. Pt sitting up in bed eating dinner still. Pt confused states " Call the [employer], see if they can clear this road here" Pointing to sink. Addendum: 06/05/20 at 1926 by Arline Alexandra RN Amended: Links added.
[2020-06-05 19:00] VITALS: BP 159/71
[2020-06-05] MEDS: HYDROcodone/acetaminophen 10/325mg tab PO PRN (19:12)
--- NOTE | 2020-06-05 21:00 | NUR ---
pt confused talking abour [employer], says hes going back to [place]. aman pantoja, pulls at elmer when restraints off. Addendum: 06/05/20 at 2256 by Arline Alexandra RN Amended: Links added.
[2020-06-05] MEDS: Melatonin 3mg tablet PO SCH (21:27)
[2020-06-05] MEDS: tamsulosin 0.4mg capsule PO SCH (21:27)
[2020-06-05 23:00] VITALS: BP 145/60
[2020-06-06] MEDS: QUEtiapine 25mg tablet PO PRN (02:02)
[2020-06-06] MEDS: HYDROcodone/acetaminophen 10/325mg tab PO PRN ×2 (02:02→20:02)
--- NOTE | 2020-06-06 06:25 | NUR ---
Problems reprioritized. Patient report given, questions answered & plan of care reviewed with YASMEEN Jones. Addendum: 06/06/20 at 0625 by Arline Alexandra RN Amended: Links added.
[2020-06-06 07:00] VITALS: BP 151/66
[2020-06-06] MEDS: enoxaparin 40mg/0.4ml syringe SQ SCH (07:49)
[2020-06-06] MEDS: lactobacillus rhamnosus 10,000 MMU CELLS/CAPSULE PO SCH ×2 (07:49→20:02)
[2020-06-06] MEDS: JUVEN Smoothie Arginine/Glut./Ca2+Bmb (Juven 19.3pkt) 240ml cup PO SCH ×2 (07:49→12:24)
[2020-06-06] MEDS: quetiapine 100mg tablet PO SCH ×2 (07:49→20:02)
[2020-06-06] MEDS: docusate sod 100mg capsule PO SCH ×2 (07:49→20:02)
[2020-06-06] MEDS: K and/or MAG REPLACEMENT MC SCH ×2 (07:49→20:00)
[2020-06-06] MEDS: nystatin 15 GM powder TP SCH ×3 (07:50→20:02)
[2020-06-06 12:10] VITALS: BP 124/59
[2020-06-06] MEDS: insulin Lispro (HumaLOG) vial - multi-dose SQ SCH ×2 (14:01→18:41)
[2020-06-06 19:53] VITALS: BP 121/46
[2020-06-06] MEDS: tamsulosin 0.4mg capsule PO SCH (20:02)
[2020-06-06] MEDS: Melatonin 3mg tablet PO SCH (20:02)
--- NOTE | 2020-06-07 | NUR ---
REFUSED 0000 VITAL SIGNS Addendum: 06/07/20 at 0000 by Karen Suárez RN Amended: Links added.
--- NOTE | 2020-06-07 00:34 | NUR ---
Problems reprioritized. Patient report given, questions answered & plan of care reviewed with YASMEEN PURVIS.
[2020-06-07] MEDS: QUEtiapine 25mg tablet PO PRN ×2 (02:03→11:46)
[2020-06-07] MEDS: HYDROcodone/acetaminophen 5mg/325mg tablet PO PRN (02:03)
--- NOTE | 2020-06-07 02:07 | NUR ---
Restraints removed, water offered. food offered. Pt. declined. Repositioned. CMS intact. Pt. restless and pulling at his FC without restraints on. Seroquel given per order. Will cont. to monitor. Sitter at bedside.
--- NOTE | 2020-06-07 02:31 | NUR ---
Seroquel administered and sitter at bedside. Will cont. to monitor behavior. No harm to self at this moment although pulling at F/C. Easily distracted however. Addendum: 06/07/20 at 0232 by Kelli Spear RN Amended: Links added.
--- NOTE | 2020-06-07 03:30 | NUR ---
Restraints still remain off at this point. Pain management and Seroquel effective and pt. resting comfortably. Sitter at bedside. Will cont. to monitor.
[2020-06-07] MEDS ORDERED: ziprasidone IM 20mg inj **IM only IM ONE ×2 (06:00→20:40)
--- NOTE | 2020-06-07 06:00 | NUR ---
PAGER ID: [phone] MESSAGE: Brandon Coleman 356B Pt. has already been given pain med and Seroquel. breaking out of soft limb restraints, pulled F/C- urine blood tinged- unable to assess r/t pt. violent behavior. Any other meds for behavior? Kelli [phone]
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
[2020-06-07 06:57] VITALS: BP 95/51
[2020-06-07] MEDS: enoxaparin 40mg/0.4ml syringe SQ SCH (07:55)
[2020-06-07] MEDS: docusate sod 100mg capsule PO SCH ×2 (07:55→20:31)
[2020-06-07] MEDS: lactobacillus rhamnosus 10,000 MMU CELLS/CAPSULE PO SCH ×2 (07:55→22:10)
[2020-06-07] MEDS: quetiapine 100mg tablet PO SCH ×2 (07:55→22:09)
[2020-06-07] MEDS: HYDROcodone/acetaminophen 10/325mg tab PO PRN ×3 (07:56→20:30)
[2020-06-07] MEDS: JUVEN Smoothie Arginine/Glut./Ca2+Bmb (Juven 19.3pkt) 240ml cup PO SCH ×2 (07:57→12:56)
[2020-06-07] MEDS: nystatin 15 GM powder TP SCH ×3 (08:00→21:00)
[2020-06-07] MEDS: K and/or MAG REPLACEMENT MC SCH ×2 (08:00→20:00)
[2020-06-07] MEDS: insulin Lispro (HumaLOG) vial - multi-dose SQ SCH ×3 (09:56→19:45)
--- NOTE | 2020-06-07 09:57 | NUR ---
Restraint removed again. CMS intact. ADLs, drink, food, offered.
[2020-06-07 11:03] LABS: ALBUMIN 1.6 G/DL (3.4-5.0); ANION GAP 3 (8-16); BLOOD UREA NITROGEN 15 MG/DL (7-18); BUN/CREATININE RATIO 16.5 (5.4-32.0); CALCIUM 8.8 MG/DL (8.5-10.1); CHLORIDE 102 MMOL/L (99-107); CREATININE 0.91 MG/DL (0.60-1.10); GLUCOSE 214 MG/DL (70-104); POTASSIUM 3.8 MMOL/L (3.5-5.1); SODIUM 136 MMOL/L (135-145); eGFR 79 ML/MIN
--- NOTE | 2020-06-07 14:33 | NUR ---
PAGER ID: [phone] MESSAGE: Brandon Coleman 356 Please renew RESTRAINT order. Thank you. Kelli [phone]
--- NOTE | 2020-06-07 16:06 | NUR ---
F/u (06/07): Pt PO 50% meal average fluctuating from 0%/refusals to occasional 100% at times. Darien smoothies PO intake has decreased from 75-100% avg to 50% average with mix of refusals and 100% PO. Receiving finger foods. LBM 06/03; Receiving routine colace BID and noted that prn senna added 06/07. Constipation likely impacting fluctuating PO as well as dementia. Would benefit from Glucerna ONS added to dinner given liquid PO tolerance and fluctuating meals PO; MD notified; Glucerna not being sent as has not been verified yet. Will continue to monitor. Rec: 1. continue carb controlled/heart healthy diet; chopped all/finger foods 2. Consider diet liberalization to regular given poor PO hx 3. Encourage PO intake; assist with meals 4. strawberry Darien smoothie BIDBL for wounds; Glucerna at dinners 5. Trial yogurt BIDBD, cottage cheese q lunch 6. MVI for wound healing 7. routine bowel care 8. Scaled weights per rx Addendum: 06/07/20 at [address] Amended: Links added.
--- NOTE | 2020-06-07 16:19 | NUR ---
Pt. bladder scanned- 311ml in bladder.
--- NOTE | 2020-06-07 16:30 | NUR ---
PAGER ID: [phone] MESSAGE: Brandon Coleman 356B Pt. has not voided since F/C removal. Retained 311ml per bladder scan. At how many ML of retention do you want us to place new F/C. Kelli 54Betty.
--- NOTE | 2020-06-07 18:00 | NUR ---
Gave report to Lamont ARANA. She is aware pt. F/C has been removed and pt. has not voided yet. Aware of Magu's orders to place Dupree if >400ML shown in bladder.
[2020-06-07 19:00] VITALS: BP 124/54
--- NOTE | 2020-06-07 19:00 | NUR ---
Bldder scan was done and scan showed patient had 356 in bladder
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
--- NOTE | 2020-06-07 21:00 | NUR ---
Bladder scan done 356ml showed in bladder
[2020-06-07] MEDS: tamsulosin 0.4mg capsule PO SCH (22:09)
[2020-06-07] MEDS: Melatonin 3mg tablet PO SCH (22:09)
[2020-06-08] VITALS: BP 129/61
--- NOTE | 2020-06-08 01:00 | NUR ---
Patient had a small amount of urine on his pad, a bladder scan was done and the scan showed patient had 342 in bladder. Patient is not compaining of being uncomfortable. Will continue to monitor. Addendum: 06/08/20 at 0352 by Lamont Oconnor RN scan showed 325ml
[2020-06-08] MEDS: QUEtiapine 25mg tablet PO PRN (01:03)
[2020-06-08] MEDS: sennosides/docusate sodium tablet PO PRN (01:04)
[2020-06-08] MEDS: HYDROcodone/acetaminophen 10/325mg tab PO PRN ×2 (03:07→20:06)
--- NOTE | 2020-06-08 04:17 | NUR ---
bladder scan was done, scan showed 403ml. Dupree was placed and 700ml drained once placed.
--- NOTE | 2020-06-08 06:19 | NUR ---
Problems reprioritized. Patient report given, questions answered & plan of care reviewed with YASMEEN Godoy.
--- NOTE | 2020-06-08 06:52 | NUR ---
Patient in room ALEX 356. I have received report from YASMEEN DANIELS and had the opportunity to ask questions and assume patient care.
[2020-06-08 07:00] VITALS: BP 151/74
[2020-06-08] MEDS: docusate sod 100mg capsule PO SCH ×2 (07:26→20:07)
[2020-06-08] MEDS: quetiapine 100mg tablet PO SCH (07:26)
[2020-06-08] MEDS: lactobacillus rhamnosus 10,000 MMU CELLS/CAPSULE PO SCH ×2 (07:26→20:03)
[2020-06-08] MEDS: enoxaparin 40mg/0.4ml syringe SQ SCH (07:26)
--- NOTE | 2020-06-08 07:34 | NUR ---
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 Addendum: 06/08/20 at 0735 by Walt Wolfe RN Amended: Links added.
[2020-06-08] MEDS: K and/or MAG REPLACEMENT MC SCH ×2 (08:00→20:00)
[2020-06-08] MEDS: JUVEN Smoothie Arginine/Glut./Ca2+Bmb (Juven 19.3pkt) 240ml cup PO SCH ×2 (08:20→13:28)
[2020-06-08] MEDS: insulin Lispro (HumaLOG) vial - multi-dose SQ SCH ×3 (08:30→18:29)
[2020-06-08] MEDS: nystatin 15 GM powder TP SCH ×3 (08:33→20:12)
[2020-06-08 09:23] LABS: BASOPHILS % (AUTO) 0.8 % (0-1); EOSINOPHILS # (AUTO) 0.3 X10'3 (0-0.9); EOSINOPHILS % (AUTO) 4.2 % (0-6); HEMATOCRIT 29.8 % (42.0-52.0); HEMOGLOBIN 9.9 g/dl (14.0-17.9); LYMPHOCYTES # (AUTO) 0.8 X10'3 (1.1-4.8); LYMPHOCYTES % (AUTO) 14.2 % (21-51); MEAN CORPUSCULAR HEMOGLOBIN 29.9 PG (27.0-31.0); MEAN CORPUSCULAR HGB CONC 33.4 g/dL (33.0-36.5); MEAN CORPUSCULAR VOLUME 89.6 FL (78-98); MEAN PLATELET VOLUME 7.8 FL (7.4-10.4); MONOCYTES # (AUTO) 0.5 X10'3 (0-0.9); MONOCYTES % (AUTO) 8.5 % (2-12); NEUTROPHILS # (AUTO) 4.3 X10'3 (1.8-7.7); NEUTROPHILS % (AUTO) 72.3 % (42-75); PLATELET COUNT 286 X10'3 (140-440); RED BLOOD COUNT 3.33 X10'6 (4.70-6.10); RED CELL DISTRIBUTION WIDTH 16.4 % (11.5-14.5)
[2020-06-08 09:37] LABS: ALBUMIN 2.4 G/DL (3.4-5.0); ANION GAP 4 (8-16); BLOOD UREA NITROGEN 20 MG/DL (7-18); BUN/CREATININE RATIO 19.8 (5.4-32.0); CALCIUM 8.9 MG/DL (8.5-10.1); CHLORIDE 103 MMOL/L (99-107); CREATININE 1.01 MG/DL (0.60-1.10); GLUCOSE 180 MG/DL (70-104); POTASSIUM 4.6 MMOL/L (3.5-5.1); SODIUM 137 MMOL/L (135-145); eGFR 70 ML/MIN
--- NOTE | 2020-06-08 10:05 | NUR ---
DR CAMPO IN TO SEE PATIENT.
[2020-06-08 11:00] VITALS: BP_SYST 130; BP_SYST 151; BP_DIAS 58; BP_DIAS 74
--- NOTE | 2020-06-08 15:58 | NUR ---
F/u: Pt documented with 100% PO intake at dinner 06/07 and lunch 06/08 although with 0% at breakfast 06/08. Still no documented BM since 06/03. Pt receiving routine bowel care and received first dose of PRN Senna-S 06/08. D/w dietary to trial power pudding with dinner tonight for bowel regularity. Will continue to follow closely and monitor need for further nutrition intervention. Addendum: 06/08/20 at [address] Amended: Links added.
[2020-06-08 18:00] VITALS: BP 111/59
--- NOTE | 2020-06-08 18:30 | NUR ---
Problems reprioritized. Patient report given, questions answered & plan of care reviewed with YASMEEN DANIELS.
--- NOTE | 2020-06-08 18:31 | NUR ---
I have received report from YASMEEN Godoy and had the opportunity to ask questions and assume patient care.
[2020-06-08] MEDS: tamsulosin 0.4mg capsule PO SCH (20:05)
[2020-06-08] MEDS: QUEtiapine 25mg tablet PO SCH (20:05)
[2020-06-08] MEDS: Melatonin 3mg tablet PO SCH (20:11)
[2020-06-08 20:46] LABS: CLARITY,URINE CLOUDY (Clear); COLOR,URINE YELLOW (Yellow); GLUCOSE, URINE 100 mg/dl (Neg); KETONES,URINE TRACE mg/dl (Neg); LEUKOCYTE ESTERASE ,URINE MODERATE (Neg); NITRITES, URINE NEGATIVE (Neg); OCCULT BLOOD,URINE LARGE (Neg); PROTEIN,URINE 30 mg/dl (Neg)
[2020-06-08 20:52] LABS: UA COLLECTION TYPE NON-SPECIFIED
[2020-06-08 20:53] LABS: BACTERIA,URINE 1+ /HPF (Neg); SQUAMOUS EPITHELIAL CELL,UR FEW /LPF (FEW); WBC,URINE TNTC /HPF (0-4)
[2020-06-09 00:49] VITALS: BP 138/61
--- NOTE | 2020-06-09 06:26 | NUR ---
Problems reprioritized. Patient report given, questions answered & plan of care reviewed with YASMEEN Pereira.
--- NOTE | 2020-06-09 06:41 | NUR ---
PAGER ID: [phone] MESSAGE: Brandon ColemanB Please renew restraint order as soon as possible or before the 24 hour limit. Thank you. Kelli [phone]
[2020-06-09 07:00] VITALS: BP 120/77
--- NOTE | 2020-06-09 07:30 | NUR ---
Pt. resting at this time. Sitter in room. Will cont. to monitor if pt. will be a harm to himself/ pulling at lines and payne catheter. Most likely he will and restraints will have to be re-applied. Eliza CONTRERAS to have order renewed before 24 hour deadline. Addendum: 06/09/20 at 0732 by Kelli Spear RN Amended: Links added.
--- NOTE | 2020-06-09 07:34 | NUR ---
PAGER ID: [phone] MESSAGE: Brandon Yang 356B If restraint order is not renewed by 919, this RN must discontinue restraints. Pt. is still very confused and may be a harm to himself and others. Kelli [phone]
[2020-06-09] MEDS: K and/or MAG REPLACEMENT MC SCH ×2 (08:00→19:04)
[2020-06-09] MEDS: JUVEN Smoothie Arginine/Glut./Ca2+Bmb (Juven 19.3pkt) 240ml cup PO SCH ×2 (08:15→12:36)
[2020-06-09] MEDS: QUEtiapine 25mg tablet PO SCH ×2 (08:15→19:32)
[2020-06-09] MEDS: lactobacillus rhamnosus 10,000 MMU CELLS/CAPSULE PO SCH ×2 (08:15→19:32)
[2020-06-09] MEDS: docusate sod 100mg capsule PO SCH ×2 (08:16→19:43)
[2020-06-09] MEDS: nystatin 15 GM powder TP SCH ×3 (08:17→21:33)
[2020-06-09] MEDS: enoxaparin 40mg/0.4ml syringe SQ SCH (08:17)
[2020-06-09] MEDS: HYDROcodone/acetaminophen 10/325mg tab PO PRN ×2 (08:18→23:46)
--- NOTE | 2020-06-09 08:38 | NUR ---
ANUEL AT [facility] Addendum: 06/09/20 at 0838 by Kelli Spear RN Amended: Links added.
--- NOTE | 2020-06-09 08:46 | NUR ---
NO LABS DRAWN TODAY TO ASSESS Addendum: 06/09/20 at 0850 by Kelli Spear RN Amended: Links added.
--- NOTE | 2020-06-09 09:41 | NUR ---
pT. ATTEMPTING TO CRAWL OUT OF BED. aTTEMPTING TO PULL f/c OUT SEVERAL TIMES. yELLING LOUDLY AT STAFF. UNABLE TO BE REDIRECTED TO SAFETY. RESTRAINTS REAPPLIED. SITTER AT BEDSIDE.
[2020-06-09] MEDS: insulin Lispro (HumaLOG) vial - multi-dose SQ SCH (09:47)
--- NOTE | 2020-06-09 12:28 | NUR ---
Restraints have been released and are staying off for this period of time.
--- NOTE | 2020-06-09 12:41 | NUR ---
PAGER ID: [phone] MESSAGE: Brandon Virginia 356B No BM since 06/05. You ordered senna q hs 2 day ago but not effective. May I have order for Dulcolax suppository? Thank you Kelli [phone]
[2020-06-09 12:46] VITALS: BP 127/70
[2020-06-09] MEDS ORDERED: bisacodyl 10mg suppository rectal RC STA (14:32)
--- NOTE | 2020-06-09 15:27 | NUR ---
Pt. sleeping. Addendum: 06/09/20 at 1527 by Kelli Spear RN Amended: Links added.
--- NOTE | 2020-06-09 16:04 | NUR ---
Pt. sleeping, very soundly and comfortable. Will administer suppository once he wakes up or before the end of my shift.
--- NOTE | 2020-06-09 17:18 | NUR ---
ANUEL AT [facility] Addendum: 06/09/20 at 1718 by Kelli Spear RN Amended: Links added.
--- NOTE | 2020-06-09 17:59 | NUR ---
Gave report to Kellie ARANA. Pt. in room, no needs at this time. Wrist restraints currently not applied.
[2020-06-09 18:15] VITALS: BP 138/90
--- NOTE | 2020-06-09 18:25 | NUR ---
Patient in room ALEX 356. I have received report from YASMEEN Pereira and had the opportunity to ask questions and assume patient care.
[2020-06-09] MEDS: ciprofloxacin 250mg tablet PO SCH (19:32)
[2020-06-09] MEDS ORDERED: ciprofloxacin lact 400MG/200ML 200 ML IV SCH (20:00)
[2020-06-09] MEDS: Melatonin 3mg tablet PO SCH (21:32)
[2020-06-09] MEDS: tamsulosin 0.4mg capsule PO SCH (21:32)
[2020-06-09] MEDS: QUEtiapine 25mg tablet PO PRN (23:46)
[2020-06-10] VITALS: BP 142/74
--- NOTE | 2020-06-10 06:55 | NUR ---
Problems reprioritized. Patient report given, questions answered & plan of care reviewed with YASMEEN Pereira.
[2020-06-10 07:00] VITALS: BP 143/73
[2020-06-10] MEDS: JUVEN Smoothie Arginine/Glut./Ca2+Bmb (Juven 19.3pkt) 240ml cup PO SCH ×2 (07:21→12:30)
[2020-06-10] MEDS: QUEtiapine 25mg tablet PO SCH ×2 (07:22→19:30)
[2020-06-10] MEDS: lactobacillus rhamnosus 10,000 MMU CELLS/CAPSULE PO SCH ×2 (07:22→19:30)
[2020-06-10] MEDS: ciprofloxacin 250mg tablet PO SCH (07:22)
[2020-06-10] MEDS: docusate sod 100mg capsule PO SCH ×2 (07:22→19:30)
[2020-06-10] MEDS: HYDROcodone/acetaminophen 10/325mg tab PO PRN ×2 (07:23→15:37)
[2020-06-10] MEDS: enoxaparin 40mg/0.4ml syringe SQ SCH (07:23)
[2020-06-10] MEDS: nystatin 15 GM powder TP SCH ×3 (07:23→21:40)
[2020-06-10] MEDS: K and/or MAG REPLACEMENT MC SCH ×2 (08:00→18:51)
--- NOTE | 2020-06-10 08:39 | NUR ---
PAGER ID: [phone] MESSAGE: JUST AN FYI : CLIFTON CaseB HAS MDRO IN URINE.
[2020-06-10] MEDS: insulin Lispro (HumaLOG) vial - multi-dose SQ SCH ×3 (09:33→19:21)
[2020-06-10 11:43] VITALS: BP 118/55
--- NOTE | 2020-06-10 13:02 | NUR ---
PAGER ID: [phone] MESSAGE: PT. TOE HAS TURNED ESCAR BLACK. ALSO DID YOU WANT TO KEEP CARBON FURNACE OPERATOR F/C? PT. IS GETTING PICKED UP AT 1530 SO PLEASE CALL ME BACK. THANK YOU KELLI [phone] Addendum: 06/10/20 at 1302 by Kelli Spear RN WRONG PT.
[2020-06-10] MEDS ORDERED: FOSFOMYCIN TROMETHAMINE 3 GM PACKET PO ONE (14:15)
--- NOTE | 2020-06-10 16:15 | NUR ---
PAGER ID: [phone] MESSAGE: Brandon CaseB HAS YELLOW/WHITE COATING ON TOUNGE... LIKE THRUSH. NEED RESTRAINT ORDER RENEWED PLEASE. THANK YOU. Roque [phone]
[2020-06-10] MEDS: QUEtiapine 25mg tablet PO PRN (16:57)
--- NOTE | 2020-06-10 18:27 | NUR ---
GAVE REPORT TO SUJATA ARANA. PT. IN ROOM WITH SITTER AT BEDSIDE. RESTRAINTS ON AT THIS TIME. RELEASED AND REAPPLIED. SITTER OFFERING WATER AND FOOD TO PT.
--- NOTE | 2020-06-10 18:30 | NUR ---
Patient in room ALEX 356. I have received report from Kelli ARANA and had the opportunity to ask questions and assume patient care.
[2020-06-10] MEDS: tamsulosin 0.4mg capsule PO SCH (19:30)
[2020-06-10] MEDS: Melatonin 3mg tablet PO SCH (19:30)
[2020-06-10 20:00] VITALS: BP 145/76
[2020-06-10] MEDS: nystatin 500,000 unit/5ML UD oral suspension PO SCH (21:40)
[2020-06-11] VITALS: BP 131/75
--- NOTE | 2020-06-11 06:37 | NUR ---
Problems reprioritized. Patient report given, questions answered & plan of care reviewed with Kelli ARANA.
[2020-06-11 07:00] VITALS: BP 129/59
--- NOTE | 2020-06-11 07:49 | NUR ---
SITTER AT BEDSIDE - PT. SLEEPING Addendum: 06/11/20 at 0749 by Kelli Spear RN Amended: Links added.
[2020-06-11] MEDS: K and/or MAG REPLACEMENT MC SCH ×2 (07:54→18:53)
[2020-06-11] MEDS: JUVEN Smoothie Arginine/Glut./Ca2+Bmb (Juven 19.3pkt) 240ml cup PO SCH ×2 (07:54→12:55)
[2020-06-11] MEDS: lactobacillus rhamnosus 10,000 MMU CELLS/CAPSULE PO SCH ×2 (07:55→20:19)
[2020-06-11] MEDS: enoxaparin 40mg/0.4ml syringe SQ SCH (07:55)
[2020-06-11] MEDS: nystatin 500,000 unit/5ML UD oral suspension PO SCH ×3 (07:55→20:19)
[2020-06-11] MEDS: QUEtiapine 25mg tablet PO SCH ×2 (07:55→20:19)
[2020-06-11] MEDS: docusate sod 100mg capsule PO SCH ×2 (07:55→20:19)
[2020-06-11] MEDS: HYDROcodone/acetaminophen 5mg/325mg tablet PO PRN (07:56)
[2020-06-11] MEDS: methylnaltrexone br 12mg/0.6ml inj***SubQ only SQ SCH (07:56)
[2020-06-11] MEDS: nystatin 15 GM powder TP SCH ×3 (08:00→20:20)
[2020-06-11] MEDS: insulin Lispro (HumaLOG) vial - multi-dose SQ SCH ×3 (08:15→19:32)
[2020-06-11 08:52] LABS: BASOPHILS % (AUTO) 0.3 % (0-1); EOSINOPHILS # (AUTO) 0.1 X10'3 (0-0.9); HEMATOCRIT 30.7 % (42.0-52.0); HEMOGLOBIN 10.2 g/dl (14.0-17.9); LYMPHOCYTES # (AUTO) 0.7 X10'3 (1.1-4.8); MEAN CORPUSCULAR HEMOGLOBIN 29.8 PG (27.0-31.0); MEAN CORPUSCULAR HGB CONC 33.3 g/dL (33.0-36.5); MEAN CORPUSCULAR VOLUME 89.6 FL (78-98); MEAN PLATELET VOLUME 8.2 FL (7.4-10.4); MONOCYTES # (AUTO) 0.7 X10'3 (0-0.9); MONOCYTES % (AUTO) 10.8 % (2-12); NEUTROPHILS # (AUTO) 5.1 X10'3 (1.8-7.7); NEUTROPHILS % (AUTO) 77.9 % (42-75); PLATELET COUNT 307 X10'3 (140-440); RED BLOOD COUNT 3.42 X10'6 (4.70-6.10); WHITE BLOOD COUNT 6.6 X10'3 (4.5-11.0)
[2020-06-11 09:02] LABS: ALBUMIN 2.3 G/DL (3.4-5.0); ANION GAP 4 (8-16); BLOOD UREA NITROGEN 17 MG/DL (7-18); BUN/CREATININE RATIO 21.5 (5.4-32.0); CALCIUM 8.9 MG/DL (8.5-10.1); CHLORIDE 101 MMOL/L (99-107); CREATININE 0.79 MG/DL (0.60-1.10); GLUCOSE 229 MG/DL (70-104); POTASSIUM 4.3 MMOL/L (3.5-5.1); SODIUM 136 MMOL/L (135-145); TOTAL CARBON DIOXIDE 31.3 MMOL/L (24-32); eGFR > 90 ML/MIN
--- NOTE | 2020-06-11 10:30 | NUR ---
PAGER ID: [phone] MESSAGE: please renew Brandon earl restraint order. pt. cont. to pull at lines and swing arms/fists at staff. did you only want the one dose of atb. for mdro? sarah [phone]
[2020-06-11 11:00] VITALS: BP 131/53
--- NOTE | 2020-06-11 14:20 | NUR ---
Sitter at bedside. Pt resting at this time. Addendum: 06/11/20 at 1421 by Kelli Spear RN Amended: Links added.
--- NOTE | 2020-06-11 14:39 | NUR ---
F/u (06/11): Pt overall PO poor past 2 weeks continues to fluctuate though mostly 0-25% avg meals w/ occasional 75-100%. ONS PO declined past 13 days from 75-100% prior to 0%/refusing. Overall not meeting needs. Pt has sitter who is also feeder per RN today. RD d/w RN who reports pt currently spitting out all food. Hx dementia currently AOx2 confused and at baseline per MD. LBM 8/. Receiving seroquel routinely. Per WOC pt has a couple new wounds to feet from thrashing in bed. Darien smoothie flavors changed in hopes of improving acceptance. Will continue to monitor for PO diet/ONS acceptance this admit. Rec: 1. continue carb controlled/heart healthy diet; chopped all/finger foods 2. Consider diet liberalization to regular given poor PO hx 3. Encourage PO intake; feeder with meals 4. strawberry Darien smoothie BIDBL for wounds; Glucerna at dinners 5. yogurt BIDBD, cottage cheese q lunch 6. MVI for wound healing 7. routine bowel care 8. Scaled weights per rx Addendum: 06/11/20 at [address] Amended: Links added.
--- NOTE | 2020-06-11 16:56 | NUR ---
PAGER ID: [phone] MESSAGE: QUANG pt. 356B Brandon Khoury only had 150ml output in f/c for 12 hour shift. please renew restraints? Thank you. Kelli [phone]
[2020-06-11] MEDS ORDERED: normal saline 1000ml 1,000 ML IV ONE (17:10)
[2020-06-11] MEDS: QUEtiapine 25mg tablet PO PRN (18:49)
--- NOTE | 2020-06-11 18:58 | NUR ---
Report given to Michelle ARANA.
[2020-06-11] MEDS: Melatonin 3mg tablet PO SCH (20:19)
[2020-06-11] MEDS: tamsulosin 0.4mg capsule PO SCH (20:19)
[2020-06-11] MEDS: sennosides/docusate sodium tablet PO PRN (20:19)
[2020-06-11] MEDS: HYDROcodone/acetaminophen 10/325mg tab PO PRN (22:59)
[2020-06-12] VITALS: BP 138/47
[2020-06-12] MEDS: normal saline 1000ml 1,000 ML IV SCH ×3 (00:49→15:49)
--- NOTE | 2020-06-12 03:10 | NUR ---
Patient bladder scan this morning @0300 after 1L bolus and maintaince fluid started @75ml hr and FC show about 200ml of dark devonte urine. Bladder scan show 188 in bladder. Will continue with current POC.
[2020-06-12] MEDS: QUEtiapine 25mg tablet PO PRN (04:25)
--- NOTE | 2020-06-12 06:39 | NUR ---
Problems reprioritized. Patient report given, questions answered & plan of care reviewed with Kelli ARANA.
[2020-06-12 08:00] VITALS: BP 105/76
[2020-06-12] MEDS: K and/or MAG REPLACEMENT MC SCH ×2 (08:00→20:00)
[2020-06-12] MEDS: lactobacillus rhamnosus 10,000 MMU CELLS/CAPSULE PO SCH ×2 (08:18→08:44)
[2020-06-12] MEDS: JUVEN Smoothie Arginine/Glut./Ca2+Bmb (Juven 19.3pkt) 240ml cup PO SCH ×2 (08:18→13:02)
[2020-06-12] MEDS: QUEtiapine 25mg tablet PO SCH ×2 (08:19→20:39)
[2020-06-12] MEDS: nystatin 500,000 unit/5ML UD oral suspension PO SCH ×3 (08:19→20:46)
[2020-06-12] MEDS: docusate sod 100mg capsule PO SCH ×3 (08:19→20:46)
[2020-06-12] MEDS: enoxaparin 40mg/0.4ml syringe SQ SCH (08:19)
[2020-06-12] MEDS: HYDROcodone/acetaminophen 10/325mg tab PO PRN ×2 (08:20→20:37)
[2020-06-12] MEDS: nystatin 15 GM powder TP SCH ×3 (08:20→20:48)
--- NOTE | 2020-06-12 08:28 | NUR ---
PAGER ID: [phone] MESSAGE: Brandon Coleman 356B Restraints were off last night when pt. was sleeping. pt. woke up and pulled payne. blood clot in payne- 468 ml in bladder. orders to flush payne? please renew restraint orders. when does cast come off? Kelli [phone]
--- NOTE | 2020-06-12 08:51 | NUR ---
Pt. would not stop talking during assessment. Addendum: 06/12/20 at 0858 by Kelli Spear RN Amended: Links added.
[2020-06-12] MEDS: insulin Lispro (HumaLOG) vial - multi-dose SQ SCH ×3 (09:37→19:58)
--- NOTE | 2020-06-12 09:44 | NUR ---
PAGER ID: [phone] MESSAGE: Brandon Coleman 356B Pt. payne still clogged with clot. Need orders to flush. Please renew restraints. Kelli [phone]
--- NOTE | 2020-06-12 10:18 | NUR ---
pt. uncomfortable with full bladder. Charge made aware- no return call from MD yet.
--- NOTE | 2020-06-12 11:11 | NUR ---
PAGER ID: [phone] MESSAGE: CLIFTON WREN. 356b WHEN DID YOU WANT US TO PUT F/C BACK IN? THERE WAS ALREADY ALMOST 500 ML IN BLADDER WHEN YOU ASKED US TO cyndi LOPEZ. HE IS STILL RETAINING. HYUN [id number]
--- NOTE | 2020-06-12 11:17 | NUR ---
PT. HAS 557ML IN BLADDER. AWARE PT. IS DISTENDED AND RETAINING WILL OVER 400 ML IN BLADDER. NO RESPONSE FROM PAGE. WILL STRAIGHT CATH PER PROTOCOL ORDERS.
--- NOTE | 2020-06-12 11:57 | NUR ---
PT. STRAIGHT CATHED PER PROTOCOL. STRAIGHT CATH BAG CAME APART DURING INSERTION DUE TO THE SHORT LENGTH OF THE CATHETER AND NO URINE OUTPUT IN CATHETER. AMPLE URINE STARTED TO COME OUT OF CATHETER END. nOT MEASURED DUE TO NOT BEING CONTAINED. PT. STATES RELIEF. TOLERATED PROCEDURE WELL. SOME CLOTS/BLOOD NOTED. PT. CLEANED UP AND REPOSITIONED. BLADDER SCANNED. 69 ML SHOWN IN BLADDER. ESTIMATED 600 ML URINE OUTPUT. WILL CHART IN I&OS.
--- NOTE | 2020-06-12 14:31 | NUR ---
PAGER ID: [phone] MESSAGE: CLIFTON WREN [id number] FYI + BC from R arm taken 06/11. Positive after 24 hours, gram neg. rods. Kelli [id number]
--- NOTE | 2020-06-12 16:02 | NUR ---
Spoke to MD Glez. Cast will be removed 06/14/20. Incision will be evaluated at that time to see if heidi can be removed.
[2020-06-12] MEDS ORDERED: MEROPENEM 1GM/NS 50ML IVPB 50 ML IV SCH (16:45)
[2020-06-12 18:00] VITALS: BP 130/67
[2020-06-12] MEDS: meropenem inj 1 GM in normal saline 100ml IV soln 100 ML IV SCH (18:00)
--- NOTE | 2020-06-12 18:15 | NUR ---
Gave report to Lamont ARANA.
--- NOTE | 2020-06-12 19:08 | NUR ---
Received report from YASMEEN Pereira
[2020-06-12] MEDS: tamsulosin 0.4mg capsule PO SCH (20:00)
[2020-06-12] MEDS: Melatonin 3mg tablet PO SCH (20:41)
[2020-06-13] VITALS: BP 136/64
[2020-06-13] MEDS: meropenem inj 1 GM in normal saline 100ml IV soln 100 ML IV SCH ×3 (00:02→15:15)
[2020-06-13] MEDS: normal saline 1000ml 1,000 ML IV SCH ×2 (04:11→19:39)
[2020-06-13] MEDS: HYDROcodone/acetaminophen 10/325mg tab PO PRN (05:31)
--- NOTE | 2020-06-13 05:50 | NUR ---
Pt refused [place] 10, wasted with primary RN.
--- NOTE | 2020-06-13 06:00 | NUR ---
Patient in room ALEX 356. I have received report from YASMEEN Miguel and had the opportunity to ask questions and assume patient care.
--- NOTE | 2020-06-13 06:09 | NUR ---
Problems reprioritized. Patient report given, questions answered & plan of care reviewed with YASMEEN Sanchez.
[2020-06-13] MEDS: JUVEN Smoothie Arginine/Glut./Ca2+Bmb (Juven 19.3pkt) 240ml cup PO SCH ×2 (07:30→12:30)
[2020-06-13 08:00] VITALS: BP 130/62
[2020-06-13] MEDS: tamsulosin 0.4mg capsule PO SCH ×2 (08:00→20:00)
[2020-06-13] MEDS: K and/or MAG REPLACEMENT MC SCH ×4 (08:00→20:00)
[2020-06-13] MEDS: enoxaparin 40mg/0.4ml syringe SQ SCH (08:12)
[2020-06-13] MEDS: methylnaltrexone br 12mg/0.6ml inj***SubQ only SQ SCH (08:16)
[2020-06-13] MEDS: lactobacillus rhamnosus 10,000 MMU CELLS/CAPSULE PO SCH ×2 (08:16→20:00)
[2020-06-13] MEDS: nystatin 500,000 unit/5ML UD oral suspension PO SCH ×3 (08:16→21:00)
[2020-06-13] MEDS: nystatin 15 GM powder TP SCH ×3 (08:17→21:31)
[2020-06-13] MEDS: QUEtiapine 25mg tablet PO SCH ×2 (08:17→20:00)
[2020-06-13] MEDS: insulin Lispro (HumaLOG) vial - multi-dose SQ SCH ×3 (08:34→20:06)
[2020-06-13] MEDS ORDERED: potassium Cl 20 mEq SR tablet PO PRN (10:00)
[2020-06-13] MEDS ORDERED: magnesium Cl slow-release 64mg tablet PO PRN (10:00)
[2020-06-13] MEDS ORDERED: magnesium 4gm in 100ml NS 100 ML IV PRN (10:00)
[2020-06-13] MEDS ORDERED: potassium CL 10mEq/100ml bag 100 ML IV PRN (10:00)
[2020-06-13 11:00] VITALS: BP 136/68
[2020-06-13 12:24] LABS: BASOPHILS % (AUTO) 0.5 % (0-1); EOSINOPHILS # (AUTO) 0.1 X10'3 (0-0.9); HEMOGLOBIN 9.5 g/dl (14.0-17.9); LYMPHOCYTES # (AUTO) 0.6 X10'3 (1.1-4.8); LYMPHOCYTES % (AUTO) 12.2 % (21-51); MEAN CORPUSCULAR HEMOGLOBIN 29.1 PG (27.0-31.0); MEAN CORPUSCULAR HGB CONC 32.9 g/dL (33.0-36.5); MEAN CORPUSCULAR VOLUME 88.4 FL (78-98); MEAN PLATELET VOLUME 8.2 FL (7.4-10.4); MONOCYTES # (AUTO) 0.5 X10'3 (0-0.9); MONOCYTES % (AUTO) 10.6 % (2-12); NEUTROPHILS # (AUTO) 3.6 X10'3 (1.8-7.7); NEUTROPHILS % (AUTO) 74.7 % (42-75); PLATELET COUNT 266 X10'3 (140-440); RED BLOOD COUNT 3.28 X10'6 (4.70-6.10); RED CELL DISTRIBUTION WIDTH 15.7 % (11.5-14.5); WHITE BLOOD COUNT 4.8 X10'3 (4.5-11.0)
--- NOTE | 2020-06-13 18:43 | NUR ---
Problems reprioritized. Patient report given, questions answered & plan of care reviewed with YASMEEN Miguel.
--- NOTE | 2020-06-13 18:54 | NUR ---
Patient in room ALEX 356. I have received report from YASMEEN Sanchez and had the opportunity to ask questions and assume patient care.
[2020-06-13] MEDS: morphine 2 MG/ML inj. syringe IV PRN ×2 (19:31→22:18)
[2020-06-13] MEDS: docusate sod 100mg capsule PO SCH (20:00)
[2020-06-13] MEDS: Melatonin 3mg tablet PO SCH (21:00)
[2020-06-14] MEDS: meropenem inj 1 GM in normal saline 100ml IV soln 100 ML IV SCH ×4 (01:34→23:59)
--- NOTE | 2020-06-14 02:31 | NUR ---
Bladder scan said 558 when I straight cathed him I got 1200 ML of dark devonte urine out. Patient is resting comfortably now.
--- NOTE | 2020-06-14 06:00 | NUR ---
Patient in room ALEX 356. I have received report from YASMEEN Miguel and had the opportunity to ask questions and assume patient care.
--- NOTE | 2020-06-14 06:19 | NUR ---
Problems reprioritized. Patient report given, questions answered & plan of care reviewed with YASMEEN Sanchez.
[2020-06-14 07:21] LABS: BASOPHILS % (AUTO) 0.7 % (0-1); EOSINOPHILS # (AUTO) 0.1 X10'3 (0-0.9); EOSINOPHILS % (AUTO) 2.5 % (0-6); HEMATOCRIT 30.8 % (42.0-52.0); HEMOGLOBIN 10.2 g/dl (14.0-17.9); LYMPHOCYTES % (AUTO) 22.1 % (21-51); MEAN CORPUSCULAR HEMOGLOBIN 28.9 PG (27.0-31.0); MEAN CORPUSCULAR VOLUME 87.7 FL (78-98); MEAN PLATELET VOLUME 7.7 FL (7.4-10.4); MONOCYTES # (AUTO) 0.4 X10'3 (0-0.9); MONOCYTES % (AUTO) 9.7 % (2-12); NEUTROPHILS # (AUTO) 2.9 X10'3 (1.8-7.7); PLATELET COUNT 286 X10'3 (140-440); RED BLOOD COUNT 3.51 X10'6 (4.70-6.10); RED CELL DISTRIBUTION WIDTH 15.6 % (11.5-14.5); WHITE BLOOD COUNT 4.5 X10'3 (4.5-11.0)
[2020-06-14] MEDS: JUVEN Smoothie Arginine/Glut./Ca2+Bmb (Juven 19.3pkt) 240ml cup PO SCH ×2 (07:30→12:30)
[2020-06-14 07:41] LABS: ALANINE AMINOTRANSFERASE 14 U/L (12-78); ALBUMIN 2.3 G/DL (3.4-5.0); ALBUMIN/GLOBULIN RATIO 0.5 (1.1-1.5); ALKALINE PHOSPHATASE 82 IU/L (46-116); ANION GAP 6 (8-16); ASPARTATE AMINO TRANSFERASE 17 U/L (10-37); BILIRUBIN,TOTAL 0.5 MG/DL (0.1-1.0); BLOOD UREA NITROGEN 22 MG/DL (7-18); BUN/CREATININE RATIO 29.7 (5.4-32.0); CALCIUM 9.1 MG/DL (8.5-10.1); CHLORIDE 106 MMOL/L (99-107); CREATININE 0.74 MG/DL (0.60-1.10); GLUCOSE 239 MG/DL (70-104); MAGNESIUM 1.6 MG/DL (1.5-2.4); PHOSPHORUS 2.5 MG/DL (2.3-4.5); POTASSIUM 3.9 MMOL/L (3.5-5.1); SODIUM 139 MMOL/L (135-145); TOTAL CARBON DIOXIDE 26.8 MMOL/L (24-32); eGFR > 90 ML/MIN
[2020-06-14 08:00] VITALS: BP 143/77
[2020-06-14] MEDS: lactobacillus rhamnosus 10,000 MMU CELLS/CAPSULE PO SCH ×2 (08:00→19:04)
[2020-06-14] MEDS: K and/or MAG REPLACEMENT MC SCH ×2 (08:00→19:13)
[2020-06-14] MEDS: docusate sod 100mg capsule PO SCH ×2 (08:00→19:05)
[2020-06-14] MEDS: tamsulosin 0.4mg capsule PO SCH ×2 (08:00→19:03)
[2020-06-14] MEDS: QUEtiapine 25mg tablet PO SCH ×2 (08:50→19:03)
[2020-06-14] MEDS: nystatin 500,000 unit/5ML UD oral suspension PO SCH ×3 (08:53→20:26)
[2020-06-14] MEDS: enoxaparin 40mg/0.4ml syringe SQ SCH (08:53)
[2020-06-14] MEDS: nystatin 15 GM powder TP SCH ×3 (08:56→20:29)
[2020-06-14 11:00] VITALS: BP 149/80
--- NOTE | 2020-06-14 12:07 | NUR ---
Reassessment: Pt continues with average 0-25% PO intake of meals with occasional 50% and 75% PO intake. PO intake of ONS fluctuates with some 100% and refusals however overall averaging 50% PO intake of ONS. Pt not meeting nutrient needs at this time. Pt documented as A/O x 1, confused, resistive to care, in restraints with a sitter at beside, all factors that likely impact PO intake. LBM 06/13 per I&O. Pt with routine bowel care available although documented to be refusing. Pt started on routine Relistor. Will continue to follow closely. Rec: 1. continue carb controlled/heart healthy diet; chopped all/finger foods 2. Consider diet liberalization to regular given poor PO hx 3. Encourage PO intake; feeder with meals 4. strawberry [place] smoothie BIDBL for wounds; Glucerna at dinners 5. yogurt BIDBD, cottage cheese q lunch 6. MVI for wound healing 7. routine bowel care 8. Scaled weights per rx Addendum: 06/14/20 at [address] Amended: Links added.
[2020-06-14] MEDS: normal saline 1000ml 1,000 ML IV SCH (12:42)
[2020-06-14] MEDS: insulin Lispro (HumaLOG) vial - multi-dose SQ SCH ×2 (12:59→18:48)
--- NOTE | 2020-06-14 17:53 | NUR ---
Student documentation: I have reviewed interventions, assessments performed and documented by Lorena Student Nurse.
--- NOTE | 2020-06-14 18:10 | NUR ---
Received report from primary care nurse Vinicius ARANA. Assumed patient care. Patient is yelling and moving his legs around. In 2 point soft wrist restraints at this time. Sitter is at the bedside. Will assess and medicate PRN.
--- NOTE | 2020-06-14 18:30 | NUR ---
Problems reprioritized. Patient report given, questions answered & plan of care reviewed with YASMEEN Chirinos.
[2020-06-14] MEDS: morphine 2 MG/ML inj. syringe IV PRN ×2 (19:01→23:59)
[2020-06-14] MEDS: sennosides/docusate sodium tablet PO PRN (19:03)
[2020-06-14 19:43] VITALS: BP 144/92
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
[2020-06-14] MEDS ORDERED: OLANZapine **IM** 10 mg inj. IM ONE (19:55)
[2020-06-14] MEDS: Melatonin 3mg tablet PO SCH (20:25)
[2020-06-15] VITALS: BP 115/68
[2020-06-15] MEDS: normal saline 1000ml 1,000 ML IV SCH ×3 (01:10→16:34)
--- NOTE | 2020-06-15 06:05 | NUR ---
Patient in room ALEX 356. I have received report from YASMEEN Chirinos and had the opportunity to ask questions and assume patient care.
--- NOTE | 2020-06-15 06:40 | NUR ---
Reported off to Razia RN. Patient is resting with relaxed and unlabored respirations on room air. Sitter is at the bedside.
[2020-06-15] MEDS: JUVEN Smoothie Arginine/Glut./Ca2+Bmb (Juven 19.3pkt) 240ml cup PO SCH ×2 (07:32→12:30)
[2020-06-15 08:07] LABS: EOSINOPHILS # (AUTO) 0.1 X10'3 (0-0.9); HEMATOCRIT 29.5 % (42.0-52.0); HEMOGLOBIN 9.9 g/dl (14.0-17.9); LYMPHOCYTES # (AUTO) 0.8 X10'3 (1.1-4.8); LYMPHOCYTES % (AUTO) 19.3 % (21-51); MEAN CORPUSCULAR HEMOGLOBIN 29.5 PG (27.0-31.0); MEAN CORPUSCULAR HGB CONC 33.4 g/dL (33.0-36.5); MEAN CORPUSCULAR VOLUME 88.3 FL (78-98); MEAN PLATELET VOLUME 7.6 FL (7.4-10.4); MONOCYTES # (AUTO) 0.3 X10'3 (0-0.9); NEUTROPHILS # (AUTO) 2.8 X10'3 (1.8-7.7); NEUTROPHILS % (AUTO) 68.7 % (42-75); PLATELET COUNT 262 X10'3 (140-440); RED BLOOD COUNT 3.34 X10'6 (4.70-6.10); RED CELL DISTRIBUTION WIDTH 15.7 % (11.5-14.5); WHITE BLOOD COUNT 4.1 X10'3 (4.5-11.0)
[2020-06-15] MEDS: nystatin 500,000 unit/5ML UD oral suspension PO SCH ×3 (08:28→20:48)
[2020-06-15] MEDS: enoxaparin 40mg/0.4ml syringe SQ SCH (08:28)
[2020-06-15] MEDS: tamsulosin 0.4mg capsule PO SCH ×2 (08:28→19:12)
[2020-06-15] MEDS: docusate sod 100mg capsule PO SCH ×2 (08:29→19:14)
[2020-06-15] MEDS: QUEtiapine 25mg tablet PO SCH ×2 (08:29→19:12)
[2020-06-15] MEDS: lactobacillus rhamnosus 10,000 MMU CELLS/CAPSULE PO SCH ×2 (08:29→19:12)
[2020-06-15] MEDS: methylnaltrexone br 12mg/0.6ml inj***SubQ only SQ SCH (08:29)
[2020-06-15 08:30] VITALS: BP 153/81
[2020-06-15] MEDS: meropenem inj 1 GM in normal saline 100ml IV soln 100 ML IV SCH ×3 (08:30→23:49)
[2020-06-15] MEDS: nystatin 15 GM powder TP SCH ×2 (08:30→19:35)
[2020-06-15 08:34] LABS: ALANINE AMINOTRANSFERASE 15 U/L (12-78); ALBUMIN 2.2 G/DL (3.4-5.0); ALBUMIN/GLOBULIN RATIO 0.5 (1.1-1.5); ALKALINE PHOSPHATASE 70 IU/L (46-116); ANION GAP 8 (8-16); ASPARTATE AMINO TRANSFERASE 19 U/L (10-37); BILIRUBIN,TOTAL 0.4 MG/DL (0.1-1.0); BLOOD UREA NITROGEN 15 MG/DL (7-18); BUN/CREATININE RATIO 23.4 (5.4-32.0); CALCIUM 8.7 MG/DL (8.5-10.1); CHLORIDE 107 MMOL/L (99-107); CREATININE 0.64 MG/DL (0.60-1.10); GLUCOSE 202 MG/DL (70-104); MAGNESIUM 1.5 MG/DL (1.5-2.4); PHOSPHORUS 2.3 MG/DL (2.3-4.5); POTASSIUM 3.3 MMOL/L (3.5-5.1); SODIUM 141 MMOL/L (135-145); TOTAL CARBON DIOXIDE 26.3 MMOL/L (24-32); TOTAL PROTEIN 6.3 G/DL (6.4-8.2); eGFR > 90 ML/MIN
[2020-06-15] MEDS: potassium Cl 20 mEq SR tablet PO PRN ×2 (08:41→13:24)
[2020-06-15] MEDS: K and/or MAG REPLACEMENT MC SCH ×2 (08:42→19:49)
[2020-06-15] MEDS: insulin Lispro (HumaLOG) vial - multi-dose SQ SCH ×2 (09:34→13:53)
[2020-06-15 11:00] VITALS: BP 122/72
[2020-06-15 18:00] VITALS: BP 152/75
--- NOTE | 2020-06-15 18:20 | NUR ---
Problems reprioritized. Patient report given, questions answered & plan of care reviewed with YASMEEN Hook.
[2020-06-15] MEDS ORDERED: nystatin 500,000 unit/5ML UD oral suspension PO SCH (20:00)
[2020-06-15] MEDS: Melatonin 3mg tablet PO SCH (20:46)
[2020-06-15] MEDS: OLANZapine **IM** 10 mg inj. IM PRN (21:28)
[2020-06-15] MEDS: doxazosin mesylate 2mg tablet PO SCH (21:30)
[2020-06-15] MEDS ORDERED: LIDOcaine 2% 10ml TOPICAL JELLY (Urojet) MM PRN (22:05)
[2020-06-16] VITALS: BP 154/87
--- NOTE | 2020-06-16 06:20 | NUR ---
Patient in room ALEX 356. I have received report from YASMEEN Hook and had the opportunity to ask questions and assume patient care.
[2020-06-16 06:30] VITALS: BP 129/72
[2020-06-16] MEDS: nystatin 500,000 unit/5ML UD oral suspension PO SCH ×3 (07:44→20:16)
[2020-06-16] MEDS: QUEtiapine 25mg tablet PO SCH (07:45)
[2020-06-16] MEDS: tamsulosin 0.4mg capsule PO SCH ×2 (07:45→20:16)
[2020-06-16] MEDS: lactobacillus rhamnosus 10,000 MMU CELLS/CAPSULE PO SCH ×2 (07:45→20:16)
[2020-06-16] MEDS: docusate sod 100mg capsule PO SCH ×2 (07:45→20:18)
[2020-06-16] MEDS: meropenem inj 1 GM in normal saline 100ml IV soln 100 ML IV SCH ×2 (07:46→18:24)
[2020-06-16] MEDS: enoxaparin 40mg/0.4ml syringe SQ SCH (07:46)
[2020-06-16] MEDS: nystatin 15 GM powder TP SCH ×2 (07:47→20:20)
[2020-06-16] MEDS: JUVEN Smoothie Arginine/Glut./Ca2+Bmb (Juven 19.3pkt) 240ml cup PO SCH (07:47)
[2020-06-16] MEDS: K and/or MAG REPLACEMENT MC SCH ×2 (08:00→20:00)
[2020-06-16 08:02] LABS: BASOPHILS % (AUTO) 1.2 % (0-1); EOSINOPHILS # (AUTO) 0.1 X10'3 (0-0.9); EOSINOPHILS % (AUTO) 3.2 % (0-6); HEMATOCRIT 29.8 % (42.0-52.0); HEMOGLOBIN 9.8 g/dl (14.0-17.9); LYMPHOCYTES # (AUTO) 0.8 X10'3 (1.1-4.8); LYMPHOCYTES % (AUTO) 20.1 % (21-51); MEAN CORPUSCULAR HEMOGLOBIN 28.9 PG (27.0-31.0); MEAN CORPUSCULAR VOLUME 87.7 FL (78-98); MEAN PLATELET VOLUME 7.4 FL (7.4-10.4); MONOCYTES # (AUTO) 0.4 X10'3 (0-0.9); NEUTROPHILS # (AUTO) 2.8 X10'3 (1.8-7.7); NEUTROPHILS % (AUTO) 66.5 % (42-75); PLATELET COUNT 249 X10'3 (140-440); RED BLOOD COUNT 3.39 X10'6 (4.70-6.10); RED CELL DISTRIBUTION WIDTH 15.8 % (11.5-14.5); WHITE BLOOD COUNT 4.1 X10'3 (4.5-11.0)
[2020-06-16 08:17] LABS: ALANINE AMINOTRANSFERASE 14 U/L (12-78); ALBUMIN 2.2 G/DL (3.4-5.0); ALBUMIN/GLOBULIN RATIO 0.5 (1.1-1.5); ALKALINE PHOSPHATASE 72 IU/L (46-116); ANION GAP 5 (8-16); ASPARTATE AMINO TRANSFERASE 17 U/L (10-37); BILIRUBIN,TOTAL 0.5 MG/DL (0.1-1.0); BLOOD UREA NITROGEN 12 MG/DL (7-18); BUN/CREATININE RATIO 17.4 (5.4-32.0); CALCIUM 8.7 MG/DL (8.5-10.1); CHLORIDE 108 MMOL/L (99-107); CREATININE 0.69 MG/DL (0.60-1.10); GLUCOSE 242 MG/DL (70-104); MAGNESIUM 1.5 MG/DL (1.5-2.4); PHOSPHORUS 2.3 MG/DL (2.3-4.5); POTASSIUM 3.6 MMOL/L (3.5-5.1); SODIUM 143 MMOL/L (135-145); TOTAL CARBON DIOXIDE 29.6 MMOL/L (24-32); TOTAL PROTEIN 6.3 G/DL (6.4-8.2); eGFR > 90 ML/MIN
[2020-06-16] MEDS: insulin Lispro (HumaLOG) vial - multi-dose SQ SCH (08:47)
[2020-06-16] MEDS: normal saline 1000ml 1,000 ML IV SCH (09:06)
[2020-06-16 11:49] VITALS: BP 126/71
[2020-06-16] MEDS ORDERED: haloperidol lactate 5mg/ml inj IM ONE ×2 (13:20→17:05)
[2020-06-16] MEDS: OLANZapine **IM** 10 mg inj. IM PRN (13:24)
[2020-06-16] MEDS: QUEtiapine 25mg tablet PO PRN (16:23)
[2020-06-16] MEDS ORDERED: quetiapine 100mg tablet PO ONE (17:05)
[2020-06-16 18:00] VITALS: BP 146/69
--- NOTE | 2020-06-16 18:55 | NUR ---
Problems reprioritized. Patient report given, questions answered & plan of care reviewed with YASMEEN Hook.
[2020-06-16] MEDS: quetiapine 100mg tablet PO SCH (20:15)
[2020-06-16] MEDS: doxazosin mesylate 2mg tablet PO SCH (20:16)
[2020-06-16] MEDS: Melatonin 3mg tablet PO SCH (20:16)
[2020-06-17] MEDS: meropenem inj 1 GM in normal saline 100ml IV soln 100 ML IV SCH ×3 (00:22→15:48)
[2020-06-17] MEDS: QUEtiapine 25mg tablet PO PRN (00:24)
--- NOTE | 2020-06-17 06:10 | NUR ---
Patient in room ALEX 356. I have received report from YASMEEN Hook and had the opportunity to ask questions and assume patient care.
[2020-06-17 06:30] VITALS: BP 134/69
[2020-06-17] MEDS: normal saline 1000ml 1,000 ML IV SCH ×2 (06:30→21:52)
[2020-06-17] MEDS: enoxaparin 40mg/0.4ml syringe SQ SCH (08:21)
[2020-06-17] MEDS: docusate sod 100mg capsule PO SCH ×3 (08:22→22:12)
[2020-06-17] MEDS: tamsulosin 0.4mg capsule PO SCH ×2 (08:22→21:48)
[2020-06-17] MEDS: nystatin 500,000 unit/5ML UD oral suspension PO SCH ×3 (08:22→21:50)
[2020-06-17] MEDS: quetiapine 100mg tablet PO SCH ×2 (08:22→21:49)
[2020-06-17] MEDS: lactobacillus rhamnosus 10,000 MMU CELLS/CAPSULE PO SCH ×2 (08:22→21:50)
[2020-06-17] MEDS: methylnaltrexone br 12mg/0.6ml inj***SubQ only SQ SCH (08:23)
[2020-06-17] MEDS: nystatin 15 GM powder TP SCH ×2 (08:33→21:50)
[2020-06-17 08:47] LABS: BASOPHILS % (AUTO) 0.8 % (0-1); EOSINOPHILS # (AUTO) 0.1 X10'3 (0-0.9); EOSINOPHILS % (AUTO) 3.2 % (0-6); HEMATOCRIT 28.7 % (42.0-52.0); HEMOGLOBIN 9.5 g/dl (14.0-17.9); LYMPHOCYTES # (AUTO) 0.7 X10'3 (1.1-4.8); LYMPHOCYTES % (AUTO) 19.7 % (21-51); MEAN CORPUSCULAR HEMOGLOBIN 28.9 PG (27.0-31.0); MEAN CORPUSCULAR HGB CONC 32.9 g/dL (33.0-36.5); MEAN CORPUSCULAR VOLUME 87.7 FL (78-98); MEAN PLATELET VOLUME 7.9 FL (7.4-10.4); MONOCYTES # (AUTO) 0.3 X10'3 (0-0.9); MONOCYTES % (AUTO) 8.6 % (2-12); NEUTROPHILS # (AUTO) 2.5 X10'3 (1.8-7.7); NEUTROPHILS % (AUTO) 67.7 % (42-75); PLATELET COUNT 230 X10'3 (140-440); RED BLOOD COUNT 3.27 X10'6 (4.70-6.10); RED CELL DISTRIBUTION WIDTH 16.2 % (11.5-14.5); WHITE BLOOD COUNT 3.7 X10'3 (4.5-11.0)
[2020-06-17 08:57] LABS: ALANINE AMINOTRANSFERASE 15 U/L (12-78); ALBUMIN 2.1 G/DL (3.4-5.0); ALBUMIN/GLOBULIN RATIO 0.5 (1.1-1.5); ALKALINE PHOSPHATASE 68 IU/L (46-116); ANION GAP 7 (8-16); ASPARTATE AMINO TRANSFERASE 18 U/L (10-37); BILIRUBIN,TOTAL 0.5 MG/DL (0.1-1.0); BLOOD UREA NITROGEN 11 MG/DL (7-18); BUN/CREATININE RATIO 19.6 (5.4-32.0); CALCIUM 8.3 MG/DL (8.5-10.1); CHLORIDE 108 MMOL/L (99-107); CREATININE 0.56 MG/DL (0.60-1.10); GLUCOSE 240 MG/DL (70-104); MAGNESIUM 1.3 MG/DL (1.5-2.4); PHOSPHORUS 2.5 MG/DL (2.3-4.5); POTASSIUM 3.2 MMOL/L (3.5-5.1); SODIUM 144 MMOL/L (135-145); TOTAL CARBON DIOXIDE 28.7 MMOL/L (24-32); TOTAL PROTEIN 6.1 G/DL (6.4-8.2); eGFR > 90 ML/MIN
[2020-06-17] MEDS ORDERED: magnesium 2GM in 50ml NS 50 ML IV PRN (09:35)
[2020-06-17] MEDS ORDERED: magnesium 4gm in 100ml NS 100 ML IV PRN (09:35)
[2020-06-17] MEDS ORDERED: potassium CL 10mEq/100ml bag 100 ML IV PRN (09:35)
[2020-06-17] MEDS ORDERED: potassium Cl 20 mEq SR tablet PO PRN (09:35)
[2020-06-17] MEDS: K and/or MAG REPLACEMENT MC SCH ×2 (09:36→21:51)
[2020-06-17] MEDS: insulin Lispro (HumaLOG) vial - multi-dose SQ SCH ×2 (09:54→13:08)
[2020-06-17 11:00] VITALS: BP 100/50
[2020-06-17] MEDS: magnesium Cl slow-release 64mg tablet PO PRN ×2 (11:06→21:51)
[2020-06-17] MEDS: potassium Cl 20 mEq SR tablet PO PRN ×3 (11:06→21:51)
--- NOTE | 2020-06-17 16:21 | NUR ---
F/u (06/17): Pt PO remains poor 0-25% meals w/ refusals 2 weeks now w/ 25-50% avg ONS PO though both fluctuating. Not meeting needs. Pt AOx1 w/ restraints active at this time. Unfortunately, RN reports current bed scale is broken so unable to receive updated wt since only wt is from admit 05/14. If wt loss present pt would likely meet severe malnutrition criteria given PO hx but not minimum criteria at this time. RD recommended CON[place] PICKER BSS given ALOC w/ restraints receiving finger foods though likely has feeder given current conditions. Would benefit from supplemental alternative nutrition to meet needs vs nutrition support pending CONE PICKER recs. LBM 06/15 receiving colace and relistor. Receiving electrolyte replacement per protocol. Noted WBC 3.7 receiving probiotic but also meropenem for positive culture per ID MD. Will continue to monitor for CONE PICKER BSS recs and PO/ONS acceptance this admit. Rec: 1. continue carb controlled/heart healthy diet; chopped all/finger foods 2. Consider diet liberalization to regular given poor PO hx 3. CONE PICKER BSS if MD agreeable; AOx1 in restraints w/ no BSS this admit 4. Encourage PO intake; feeder with meals in restraints 5. strawberry [place] smoothie BIDBL for wounds; Glucerna at dinners 6. yogurt BIDBD, cottage cheese q lunch 7. MVI for wound healing 8. routine bowel care 9. Weekly scaled wts Addendum: 06/17/20 at [address] Amended: Links added.
--- NOTE | 2020-06-17 18:30 | NUR ---
Problems reprioritized. Patient report given, questions answered & plan of care reviewed with Lashae RN.
[2020-06-17 19:30] VITALS: BP 140/67
[2020-06-17] MEDS: Melatonin 3mg tablet PO SCH (21:49)
[2020-06-17] MEDS: doxazosin mesylate 2mg tablet PO SCH (21:49)
[2020-06-17] MEDS: morphine 2 MG/ML inj. syringe IV PRN (22:28)
[2020-06-18] VITALS: BP 133/70
[2020-06-18] MEDS: meropenem inj 1 GM in normal saline 100ml IV soln 100 ML IV SCH ×3 (00:11→18:02)
[2020-06-18 04:59] LABS: BASOPHILS # (AUTO) 0.1 X10'3 (0-0.2); BASOPHILS % (AUTO) 1.1 % (0-1); EOSINOPHILS # (AUTO) 0.2 X10'3 (0-0.9); EOSINOPHILS % (AUTO) 3.4 % (0-6); HEMATOCRIT 31.6 % (42.0-52.0); HEMOGLOBIN 10.3 g/dl (14.0-17.9); LYMPHOCYTES # (AUTO) 1.1 X10'3 (1.1-4.8); LYMPHOCYTES % (AUTO) 21.7 % (21-51); MEAN CORPUSCULAR HEMOGLOBIN 28.8 PG (27.0-31.0); MEAN CORPUSCULAR HGB CONC 32.7 g/dL (33.0-36.5); MEAN CORPUSCULAR VOLUME 88.1 FL (78-98); MEAN PLATELET VOLUME 8.7 FL (7.4-10.4); MONOCYTES # (AUTO) 0.4 X10'3 (0-0.9); MONOCYTES % (AUTO) 7.7 % (2-12); NEUTROPHILS # (AUTO) 3.4 X10'3 (1.8-7.7); NEUTROPHILS % (AUTO) 66.1 % (42-75); PLATELET COUNT 172 X10'3 (140-440); RED BLOOD COUNT 3.58 X10'6 (4.70-6.10); RED CELL DISTRIBUTION WIDTH 15.9 % (11.5-14.5); WHITE BLOOD COUNT 5.2 X10'3 (4.5-11.0)
[2020-06-18 05:22] LABS: ALANINE AMINOTRANSFERASE 17 U/L (12-78); ALBUMIN 2.3 G/DL (3.4-5.0); ALBUMIN/GLOBULIN RATIO 0.6 (1.1-1.5); ALKALINE PHOSPHATASE 79 IU/L (46-116); ANION GAP 6 (8-16); ASPARTATE AMINO TRANSFERASE 21 U/L (10-37); BILIRUBIN,TOTAL 0.5 MG/DL (0.1-1.0); BLOOD UREA NITROGEN 10 MG/DL (7-18); BUN/CREATININE RATIO 13.5 (5.4-32.0); CALCIUM 8.5 MG/DL (8.5-10.1); CHLORIDE 107 MMOL/L (99-107); CREATININE 0.74 MG/DL (0.60-1.10); GLUCOSE 205 MG/DL (70-104); MAGNESIUM 1.4 MG/DL (1.5-2.4); PHOSPHORUS 2.4 MG/DL (2.3-4.5); POTASSIUM 3.6 MMOL/L (3.5-5.1); SODIUM 143 MMOL/L (135-145); TOTAL CARBON DIOXIDE 30.5 MMOL/L (24-32); TOTAL PROTEIN 6.4 G/DL (6.4-8.2); eGFR > 90 ML/MIN
--- NOTE | 2020-06-18 06:25 | NUR ---
Patient in room ALEX 356B. I have received report from YASMEEN BULLARD and had the opportunity to ask questions and assume patient care.
[2020-06-18 07:00] VITALS: BP 116/83
[2020-06-18] MEDS: tamsulosin 0.4mg capsule PO SCH ×3 (08:00→21:53)
[2020-06-18] MEDS: K and/or MAG REPLACEMENT MC SCH ×2 (08:00→20:00)
[2020-06-18] MEDS: nystatin 500,000 unit/5ML UD oral suspension PO SCH ×3 (08:33→21:58)
[2020-06-18] MEDS: quetiapine 100mg tablet PO SCH ×2 (08:33→21:52)
[2020-06-18] MEDS: lactobacillus rhamnosus 10,000 MMU CELLS/CAPSULE PO SCH ×2 (08:33→21:53)
[2020-06-18] MEDS: enoxaparin 40mg/0.4ml syringe SQ SCH (08:34)
[2020-06-18] MEDS: nystatin 15 GM powder TP SCH ×2 (08:34→21:56)
[2020-06-18] MEDS: insulin Lispro (HumaLOG) vial - multi-dose SQ SCH ×2 (08:46→13:46)
[2020-06-18] MEDS: docusate sodium 100mg/10ml UD cup PO SCH ×2 (09:50→21:53)
[2020-06-18 11:00] VITALS: BP 119/107
--- NOTE | 2020-06-18 11:40 | NUR ---
PATIENT WAS BLADDER SCANNED AND HAD 605MLS READ ON THE SCANNER. STRAIGHT CATHED PATIENT AND RETRIEVED 625MLS
[2020-06-18] MEDS: QUEtiapine 25mg tablet PO PRN (13:40)
[2020-06-18] MEDS: normal saline 1000ml 1,000 ML IV SCH ×2 (13:55→22:30)
--- NOTE | 2020-06-18 17:55 | NUR ---
BLADDER SCANNED PATIENT, SCANNER READ 199MLS
--- NOTE | 2020-06-18 18:30 | NUR ---
Patient in room ALEX 356. I have received report from Zoe ARANA and had the opportunity to ask questions and assume patient care.
--- NOTE | 2020-06-18 18:30 | NUR ---
Patient in room ALEX 356. I have received report from Ela Samuels and had the opportunity to ask questions and assume patient care.
--- NOTE | 2020-06-18 18:45 | NUR ---
Problems reprioritized. Patient report given, questions answered & plan of care reviewed with YASMEEN VENTURA.
[2020-06-18 19:45] VITALS: BP 113/67
[2020-06-18] MEDS: Melatonin 3mg tablet PO SCH (21:52)
[2020-06-18] MEDS: doxazosin mesylate 2mg tablet PO SCH (21:52)
[2020-06-19] MEDS: meropenem inj 1 GM in normal saline 100ml IV soln 100 ML IV SCH ×4 (00:06→23:50)
[2020-06-19] MEDS: normal saline 1000ml 1,000 ML IV SCH ×2 (03:41→13:58)
--- NOTE | 2020-06-19 05:08 | NUR ---
Bladder scan revealed 533cc at this time.
--- NOTE | 2020-06-19 06:15 | NUR ---
Problems reprioritized. Patient report given, questions answered & plan of care reviewed with Zoe ARANA.
[2020-06-19 07:00] VITALS: BP 149/69
[2020-06-19] MEDS: methylnaltrexone br 12mg/0.6ml inj***SubQ only SQ SCH (07:59)
[2020-06-19] MEDS: nystatin 500,000 unit/5ML UD oral suspension PO SCH ×3 (07:59→20:22)
[2020-06-19] MEDS: docusate sodium 100mg/10ml UD cup PO SCH ×2 (07:59→20:21)
[2020-06-19] MEDS: enoxaparin 40mg/0.4ml syringe SQ SCH (07:59)
[2020-06-19] MEDS: quetiapine 100mg tablet PO SCH ×2 (08:00→20:22)
[2020-06-19] MEDS: K and/or MAG REPLACEMENT MC SCH ×2 (08:00→20:00)
[2020-06-19] MEDS: lactobacillus rhamnosus 10,000 MMU CELLS/CAPSULE PO SCH ×2 (08:00→20:21)
[2020-06-19] MEDS: tamsulosin 0.4mg capsule PO SCH ×2 (08:00→20:22)
--- NOTE | 2020-06-19 09:30 | NUR ---
BLADDER SCANNED PATIENT, SCAN SHOWED 711, STRAIT CATHED AND GOT 750 OUT
[2020-06-19] MEDS: nystatin 15 GM powder TP SCH ×2 (10:08→20:23)
[2020-06-19 11:00] VITALS: BP 153/81
[2020-06-19] MEDS: QUEtiapine 25mg tablet PO PRN (13:44)
[2020-06-19] MEDS: insulin Lispro (HumaLOG) vial - multi-dose SQ SCH (13:49)
--- NOTE | 2020-06-19 18:30 | NUR ---
Patient in room ALEX 356. I have received report from Zoe ARANA and had the opportunity to ask questions and assume patient care.
--- NOTE | 2020-06-19 18:45 | NUR ---
AROUND 0900 THE PATIENT WAS VERY AGITATED SO WE BLADDER SCANNED PATIENT AND 711MLS WAS SEEN AND WE GOT 725 OUT OF STRAIT CATHETER. PATIENT CALMED DOWN AFTER BLADDER WAS EMPTIED. AT 1505 PATIENT WAS SCANNED AGAIN PER ORDER AND 236MLS WAS SEEN. AROUND 1700 PATIENT WAS AGITATED AGAIN AT 1709 PATIENT WAS BLADDER SCANNED AND 509 WAS SEEN, PATIENT'S AGITATION WAS INCREASING SO WE RESCANNED BLADDER AT 1735, FIRST 499MLS WAS SEEN AND THEN > 500MLS WAS SEEN WAS NOT CLEAR IF OVER 500MLS SO I STRAIT CATHED THE PATIENT AND GOT 550MLS OUT, PATIENT CALMED DOWN AFTER BLADDER WAS EMPTIED.
--- NOTE | 2020-06-19 18:45 | NUR ---
Problems reprioritized. Patient report given, questions answered & plan of care reviewed with YASMEEN VENTURA.
--- NOTE | 2020-06-19 18:53 | NUR ---
Problems reprioritized. Patient report given, questions answered & plan of care reviewed with YASMEEN VENTURA.
[2020-06-19 19:00] VITALS: BP 125/68
[2020-06-19] MEDS: doxazosin mesylate 2mg tablet PO SCH (20:22)
[2020-06-19] MEDS: Melatonin 3mg tablet PO SCH (20:22)
[2020-06-19] MEDS: HYDROcodone/acetaminophen 5mg/325mg tablet PO PRN (20:43)
[2020-06-20] VITALS: BP 130/59
[2020-06-20] MEDS: normal saline 1000ml 1,000 ML IV SCH ×2 (04:00→17:34)
[2020-06-20 05:25] LABS: ALBUMIN 2.2 G/DL (3.4-5.0); ANION GAP 3 (8-16); BLOOD UREA NITROGEN 14 MG/DL (7-18); BUN/CREATININE RATIO 19.7 (5.4-32.0); CALCIUM 8.4 MG/DL (8.5-10.1); CHLORIDE 108 MMOL/L (99-107); CREATININE 0.71 MG/DL (0.60-1.10); GLUCOSE 243 MG/DL (70-104); POTASSIUM 3.4 MMOL/L (3.5-5.1); SODIUM 142 MMOL/L (135-145); TOTAL CARBON DIOXIDE 30.6 MMOL/L (24-32); eGFR > 90 ML/MIN
--- NOTE | 2020-06-20 06:18 | NUR ---
Patient bladder scanned 3 times during noc shift. At 20.30 = 58ml. At 0130= 321ml. At 0500 = 312 cc. Patient had a medium incontinent void between 0130 and 055 bladder scan. Did not straight cath during NOC shift. Dr Fisher gave order to straight cath if no void during shift ( even if under 600CC).
--- NOTE | 2020-06-20 06:30 | NUR ---
Problems reprioritized. Patient report given, questions answered & plan of care reviewed with Arabella Samuels.
--- NOTE | 2020-06-20 07:01 | NUR ---
Patient in room ALEX 356. I have received report from YASMEEN Saeed and had the opportunity to ask questions and assume patient care.
[2020-06-20 08:00] VITALS: BP 129/87
[2020-06-20] MEDS: K and/or MAG REPLACEMENT MC SCH ×2 (08:00→20:00)
[2020-06-20] MEDS: lactobacillus rhamnosus 10,000 MMU CELLS/CAPSULE PO SCH ×2 (08:20→23:39)
[2020-06-20] MEDS: tamsulosin 0.4mg capsule PO SCH ×2 (08:20→23:39)
[2020-06-20] MEDS: nystatin 500,000 unit/5ML UD oral suspension PO SCH ×3 (08:20→23:39)
[2020-06-20] MEDS: quetiapine 100mg tablet PO SCH ×2 (08:20→23:39)
[2020-06-20] MEDS: docusate sodium 100mg/10ml UD cup PO SCH ×2 (08:20→23:39)
[2020-06-20] MEDS: enoxaparin 40mg/0.4ml syringe SQ SCH (08:23)
[2020-06-20] MEDS: nystatin 15 GM powder TP SCH ×2 (08:24→20:00)
[2020-06-20] MEDS: potassium Cl 20 mEq SR tablet PO PRN ×3 (08:30→17:44)
[2020-06-20] MEDS: insulin Lispro (HumaLOG) vial - multi-dose SQ SCH ×3 (09:12→19:40)
--- NOTE | 2020-06-20 12:29 | NUR ---
Bladder scan at 0900 was 496ml. pt c/o discomfort. straight cath at 1100 with 700ml of dark yellow urine return.
[2020-06-20 12:42] VITALS: BP 127/58
[2020-06-20] MEDS ORDERED: magnesium Cl slow-release 64mg tablet PO PRN (14:05)
[2020-06-20] MEDS ORDERED: magnesium 4gm in 100ml NS 100 ML IV PRN (14:05)
[2020-06-20] MEDS ORDERED: potassium Cl 20 mEq SR tablet PO PRN (14:05)
[2020-06-20] MEDS ORDERED: potassium CL 10mEq/100ml bag 100 ML IV PRN (14:05)
--- NOTE | 2020-06-20 14:29 | NUR ---
Reassessment: Pt s/p BSS with ST recs mechanical soft grind all food with thin liquids. Pt with no aspiration noted however slow to chew d/t some missing teeth per ST note. Diet order has been adjusted and pt averaging 25-50% PO intake, up to 50-75% PO intake x 3 meals. Pt with a sitter at bedside and documented to be receiving assistance with meals. LBM 06/15. Pt receiving routine bowel care as well as prune juice TID. D/w dietary to trial power pudding with dinner tonight to further assist with bowel regularity. Pt awaiting placement per MD notes. Will continue to follow closely and make recommendations as appropriate. Rec: 1. continue carb controlled/heart healthy diet; mechanical soft grind all with thin liquids per ST recs 2. Consider diet liberalization to regular given poor PO hx 3. Encourage PO intake; feeder with meals in restraints 4. strawberry [place] smoothie BIDBL for wounds; Glucerna at dinners 5. yogurt BIDBD, cottage cheese q lunch, prune juice TID 6. MVI for wound healing 7. routine bowel care 8. Weekly scaled wts Addendum: 06/20/20 at [address] Amended: Links added.
--- NOTE | 2020-06-20 18:58 | NUR ---
Patient in room ALEX 356. I have received report from Kristi ARANA and had the opportunity to ask questions and assume patient care.
--- NOTE | 2020-06-20 19:10 | NUR ---
Problems reprioritized. Patient report given, questions answered & plan of care reviewed with YASMEEN Garrido.
[2020-06-20 20:00] VITALS: BP 164/76
[2020-06-20] MEDS: doxazosin mesylate 2mg tablet PO SCH (23:39)
[2020-06-20] MEDS: Melatonin 3mg tablet PO SCH (23:39)
[2020-06-21] VITALS: BP 161/96
--- NOTE | 2020-06-21 04:26 | NUR ---
Patient had 2 incontinent episodes. Bladder scaned the patient at 0400 and the scan said 574ml. Straight cathed him at 0410 and got 1100ml out
[2020-06-21 06:14] LABS: MAGNESIUM 1.6 MG/DL (1.5-2.4); POTASSIUM 3.8 MMOL/L (3.5-5.1)
--- NOTE | 2020-06-21 06:30 | NUR ---
Problems reprioritized. Patient report given, questions answered & plan of care reviewed with Kristi ARANA.
--- NOTE | 2020-06-21 06:45 | NUR ---
Patient in room ALEX 356. I have received report from YASMEEN Garrido and had the opportunity to ask questions and assume patient care.
[2020-06-21 08:00] VITALS: BP 163/85
[2020-06-21] MEDS: nystatin 15 GM powder TP SCH (08:00)
[2020-06-21] MEDS: K and/or MAG REPLACEMENT MC SCH (08:00)
[2020-06-21] MEDS: normal saline 1000ml 1,000 ML IV SCH (08:37)
[2020-06-21] MEDS: docusate sodium 100mg/10ml UD cup PO SCH (08:42)
[2020-06-21] MEDS: nystatin 500,000 unit/5ML UD oral suspension PO SCH ×2 (08:42→13:31)
[2020-06-21] MEDS: tamsulosin 0.4mg capsule PO SCH (08:42)
[2020-06-21] MEDS: quetiapine 100mg tablet PO SCH ×2 (08:42→22:09)
[2020-06-21] MEDS: lactobacillus rhamnosus 10,000 MMU CELLS/CAPSULE PO SCH (08:42)
[2020-06-21] MEDS: methylnaltrexone br 12mg/0.6ml inj***SubQ only SQ SCH (08:55)
[2020-06-21] MEDS: enoxaparin 40mg/0.4ml syringe SQ SCH (08:55)
[2020-06-21] MEDS: insulin Lispro (HumaLOG) vial - multi-dose SQ SCH ×2 (09:49→13:43)
[2020-06-21 11:48] VITALS: BP 144/70
[2020-06-21] MEDS ORDERED: LIDOcaine 2% 10ml TOPICAL JELLY (Urojet) TP ONE (16:40)
[2020-06-21 18:00] VITALS: BP 153/70
--- NOTE | 2020-06-21 18:30 | NUR ---
Patient in room ALEX 356. I have received report from Kristi ARANA and had the opportunity to ask questions and assume patient care.
--- NOTE | 2020-06-21 18:47 | NUR ---
Pt on comfort care. Addendum: 06/21/20 at 1847 by Kristi Boothe RN Amended: Links added.
--- NOTE | 2020-06-21 18:54 | NUR ---
Problems reprioritized. Patient report given, questions answered & plan of care reviewed with YASMEEN Garrido. Dupree cath placed, IV fluids, retrains, and medication D/C'd. Pt resting comfortably at this time.
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
[2020-06-21] MEDS: morphine 10mg/0.5ml (conc. morphine) oral syringe PO PRN (22:13)
--- NOTE | 2020-06-21 22:30 | NUR ---
Dr Mahan was notified of the incident with this patient wiggling out of his restraint and becoming combative
[2020-06-22] MEDS: OLANZapine **IM** 10 mg inj. IM PRN ×2 (02:09→17:47)
--- NOTE | 2020-06-22 06:35 | NUR ---
Problems reprioritized. Patient report given, questions answered & plan of care reviewed with Razia RN.
--- NOTE | 2020-06-22 06:35 | NUR ---
Patient in room ALEX 356. I have received report from YASMEEN Garrido and had the opportunity to ask questions and assume patient care.
--- NOTE | 2020-06-22 07:38 | NUR ---
Pt refused VS check
[2020-06-22 08:30] VITALS: BP 91/61
[2020-06-22] MEDS: quetiapine 100mg tablet PO SCH ×2 (09:27→19:14)
[2020-06-22] MEDS: morphine 10mg/0.5ml (conc. morphine) oral syringe PO PRN ×2 (11:09→23:01)
--- NOTE | 2020-06-22 11:49 | NUR ---
Reassessment: Patient's code status has been changed to DNR with comfort care. LBM 06/20 documented as small. Pt previously receiving routine bowel care however has been discontinued. Pt would benefit from resumption of bowel care as comfort care measures. Pt continues receiving prune juice TID. Will continue to follow. Rec: 1. Bowel care per comfort care measures 2. Prune juice TID Addendum: 06/22/20 at [address] Amended: Links added.
[2020-06-22 18:00] VITALS: BP 100/68
--- NOTE | 2020-06-22 18:30 | NUR ---
Patient in room ALEX 356. I have received report from Razia ARANA and had the opportunity to ask questions and assume patient care.
--- NOTE | 2020-06-22 18:30 | NUR ---
Problems reprioritized. Patient report given, questions answered & plan of care reviewed with YASMEEN Johnson.
[2020-06-22] MEDS: bisacodyl 10mg suppository rectal RC PRN (23:01)
[2020-06-23] VITALS: BP 104/51
--- NOTE | 2020-06-23 06:25 | NUR ---
Patient in room ALEX 356. I have received report from YASMEEN Johnson and had the opportunity to ask questions and assume patient care.
[2020-06-23 06:30] VITALS: BP 135/85
--- NOTE | 2020-06-23 06:35 | NUR ---
Problems reprioritized. Patient report given, questions answered & plan of care reviewed with Razia RN.
[2020-06-23] MEDS: quetiapine 100mg tablet PO SCH ×2 (09:17→19:35)
[2020-06-23] MEDS: OLANZapine **IM** 10 mg inj. IM PRN (17:51)
[2020-06-23 18:00] VITALS: BP 153/110
--- NOTE | 2020-06-23 18:15 | NUR ---
Problems reprioritized. Patient report given, questions answered & plan of care reviewed with YASMEEN Cintron.
--- NOTE | 2020-06-23 18:40 | NUR ---
Patient in room ALEX 356. I have received report from Razia ARANA and had the opportunity to ask questions and assume patient care.
[2020-06-23] MEDS: morphine 10mg/0.5ml (conc. morphine) oral syringe PO PRN (19:36)
--- NOTE | 2020-06-24 06:20 | NUR ---
Patient in room ALEX 356. I have received report from YASMEEN Cintron and had the opportunity to ask questions and assume patient care.
[2020-06-24 06:30] VITALS: BP 147/67
--- NOTE | 2020-06-24 06:31 | NUR ---
Problems reprioritized. Patient report given, questions answered & plan of care reviewed with NIRU RN.
[2020-06-24] MEDS: quetiapine 100mg tablet PO SCH ×2 (09:29→19:04)
[2020-06-24] MEDS: OLANZapine **IM** 10 mg inj. IM PRN (17:03)
--- NOTE | 2020-06-24 18:30 | NUR ---
Problems reprioritized. Patient report given, questions answered & plan of care reviewed with Saranya Reina RN.
[2020-06-24] MEDS: LORazepam 2 mg/ml vial IV PRN (19:04)
[2020-06-24 20:00] VITALS: BP 140/81
[2020-06-25] MEDS: morphine 10mg/0.5ml (conc. morphine) oral syringe PO PRN ×2 (00:20→18:35)
[2020-06-25] MEDS: LORazepam 2 mg/ml vial IV PRN (03:20)
--- NOTE | 2020-06-25 06:35 | NUR ---
Problems reprioritized. Patient report given, questions answered & plan of care reviewed with YASMEEN Thomas.
--- NOTE | 2020-06-25 06:58 | NUR ---
Patient in room ALEX 356. I have received report from Saranya Reina RN and had the opportunity to ask questions and assume patient care.
[2020-06-25] MEDS: quetiapine 100mg tablet PO SCH ×2 (07:55→19:56)
[2020-06-25 09:30] VITALS: BP 149/67
--- NOTE | 2020-06-25 18:14 | NUR ---
Patient in room ALEX 356. I have received report from YASMEEN Thomas and had the opportunity to ask questions and assume patient care.
[2020-06-25 20:02] VITALS: BP 111/54
[2020-06-25] MEDS: LORazepam 1 MG tablet PO PRN (22:01)
[2020-06-26] MEDS: morphine 10mg/0.5ml (conc. morphine) oral syringe PO PRN ×2 (02:13→19:10)
--- NOTE | 2020-06-26 06:31 | NUR ---
Problems reprioritized. Patient report given, questions answered & plan of care reviewed with YASMEEN Thomas.
--- NOTE | 2020-06-26 06:57 | NUR ---
Patient in room ALEX 356. I have received report from Saranya Reina RN and had the opportunity to ask questions and assume patient care.
[2020-06-26 07:09] VITALS: BP 148/71
[2020-06-26] MEDS: quetiapine 100mg tablet PO SCH ×2 (07:54→19:10)
--- NOTE | 2020-06-26 18:00 | NUR ---
Patient in room ALEX 356. I have received report from William ARANA and had the opportunity to ask questions and assume patient care.
--- NOTE | 2020-06-26 18:29 | NUR ---
Problems reprioritized. Patient report given, questions answered & plan of care reviewed with Radhika ARANA.
[2020-06-26 20:00] VITALS: BP 153/71
[2020-06-27] MEDS: morphine 10mg/0.5ml (conc. morphine) oral syringe PO PRN ×2 (00:28→19:36)
--- NOTE | 2020-06-27 06:21 | NUR ---
Problems reprioritized. Patient report given, questions answered & plan of care reviewed with Walt ARANA.
--- NOTE | 2020-06-27 06:43 | NUR ---
Patient in room ALEX 356. I have received report from YASMEEN MERCEDES and had the opportunity to ask questions and assume patient care.
[2020-06-27] MEDS: quetiapine 100mg tablet PO SCH ×2 (08:45→19:05)
[2020-06-27 11:00] VITALS: BP 131/61
--- NOTE | 2020-06-27 13:00 | NUR ---
Ativan 2mg vial removed from [facility]. Patient order is for 1mg IV. Carmella Mayer RN witnessed the partial dose waste and confirmed on [facility]. Patient does not have IV therefore dose was not given at all. Carmella Mayer RN witness waste of remaining dose that was to be given to patient. Unable to do waste on remaining 1mg on [facility]. Spoke to pharmacist cO and he stated to have waste written on paper with signature along with witness Leyla and fax to pharmacy.
[2020-06-27] MEDS: LORazepam 1 MG tablet PO PRN ×2 (13:08→19:52)
--- NOTE | 2020-06-27 15:00 | NUR ---
patient appears to be resting comfortably with eyes closed, respirations even and unlabored. restraints removed. sitter at bedside.
--- NOTE | 2020-06-27 18:15 | NUR ---
restraints continue to be released. patient appears to be resting comfortably. sitter at bedside.
--- NOTE | 2020-06-27 18:17 | NUR ---
Patient in room ALEX 356. I have received report from Walt ARANA and had the opportunity to ask questions and assume patient care.
--- NOTE | 2020-06-27 18:18 | NUR ---
Problems reprioritized. Patient report given, questions answered & plan of care reviewed with YASMEEN Garrido.
[2020-06-27 19:35] VITALS: BP 148/42
--- NOTE | 2020-06-27 20:00 | NUR ---
had to tie the restraints to the bed again, patient was yelling to get the stick out of his finger and started to pull and twist his finger, was afraid he would cause harm to himself, patient also getting very agitated trying to get out of bed and yelling and foul language
--- NOTE | 2020-06-28 00:33 | NUR ---
julio cesar called me in the room and patient was bleeding out his penis. Looks like the meatus has stretched and causing him to bleed. Will continue to monitor
[2020-06-28] MEDS: morphine 10mg/0.5ml (conc. morphine) oral syringe PO PRN (00:37)
[2020-06-28] MEDS: LORazepam 1 MG tablet PO PRN (02:05)
--- NOTE | 2020-06-28 05:56 | NUR ---
Problems reprioritized. Patient report given, questions answered & plan of care reviewed with Walt ARANA.
--- NOTE | 2020-06-28 06:39 | NUR ---
Patient in room ALEX 356. I have received report from YASMEEN JAMISON and had the opportunity to ask questions and assume patient care.
[2020-06-28 07:00] VITALS: BP 139/73
[2020-06-28] MEDS: quetiapine 100mg tablet PO SCH ×2 (08:23→20:15)
--- NOTE | 2020-06-28 12:08 | NUR ---
Bilateral UE restraints released. Patient sleeping with sitter at bedside. Addendum: 06/28/20 at 1210 by Walt Wolfe RN Amended: Links added.
[2020-06-28 13:04] VITALS: BP 139/64
[2020-06-28 18:00] VITALS: BP 153/71
--- NOTE | 2020-06-28 18:40 | NUR ---
Problems reprioritized. Patient report given, questions answered & plan of care reviewed with PRUDENCEYASMEEN. Addendum: 06/28/20 at 1901 by Walt Wolfe RN PATIENT REMAINS WITH SITTER, NO RESTRAINTS ON.
--- NOTE | 2020-06-28 19:22 | NUR ---
Patient in room ALEX 353. I have received report from IRON ARANA and had the opportunity to ask questions and assume patient care.
[2020-06-28] MEDS: OLANZapine **IM** 10 mg inj. IM PRN (21:02)
--- NOTE | 2020-06-29 06:29 | NUR ---
Problems reprioritized. Patient report given, questions answered & plan of care reviewed with TRAMAINE ARANA.
--- NOTE | 2020-06-29 06:34 | NUR ---
Patient in room ALEX 353. I have received report from YASMEEN SALEEM and had the opportunity to ask questions and assume patient care.
[2020-06-29] MEDS: quetiapine 100mg tablet PO SCH ×2 (08:38→19:51)
[2020-06-29 11:00] VITALS: BP 140/78
--- NOTE | 2020-06-29 12:49 | NUR ---
Reassessment: Pt documented with 0-25% PO intake though no nutrition intervention implemented given code status of DNR with comfort care. Pt documented with small BMs per GI trends. Pt continues receiving prune juice TID and received PRN Dulcolax suppository 06/22. Will continue to follow per LOS. Rec: 1. Bowel care per comfort care measures 2. Prune juice TID Addendum: 06/29/20 at [address] Amended: Links added.
[2020-06-29] MEDS: OLANZapine **IM** 10 mg inj. IM PRN (14:53)
[2020-06-29] MEDS: morphine 10mg/0.5ml (conc. morphine) oral syringe PO PRN ×2 (18:00→22:18)
--- NOTE | 2020-06-29 18:33 | NUR ---
Patient in room ALEX 353. I have received report from TRAMAINE ARANA and had the opportunity to ask questions and assume patient care.
--- NOTE | 2020-06-29 18:34 | NUR ---
Patient in room ALEX 353. I have received report from Zoe ARANA and had the opportunity to ask questions and assume patient care.
--- NOTE | 2020-06-29 18:34 | NUR ---
Problems reprioritized. Patient report given, questions answered & plan of care reviewed with YASMEEN SALEEM AND YASMEEN LUQUE.
[2020-06-30] MEDS: LORazepam 1 MG tablet PO PRN (00:54)
[2020-06-30] MEDS: morphine 10mg/0.5ml (conc. morphine) oral syringe PO PRN (03:44)
[2020-06-30] MEDS: OLANZapine **IM** 10 mg inj. IM PRN ×2 (03:53→21:22)
--- NOTE | 2020-06-30 06:32 | NUR ---
Problems reprioritized. Patient report given, questions answered & plan of care reviewed with William RN.
--- NOTE | 2020-06-30 06:41 | NUR ---
Problems reprioritized. Patient report given, questions answered & plan of care reviewed with William Rn.
--- NOTE | 2020-06-30 06:55 | NUR ---
Patient in room ALEX 353. I have received report from Saida ARANA and had the opportunity to ask questions and assume patient care.
[2020-06-30 07:00] VITALS: BP 131/64
[2020-06-30] MEDS: quetiapine 100mg tablet PO SCH ×2 (08:36→21:30)
[2020-06-30] MEDS: bisacodyl 10mg suppository rectal RC PRN (16:40)
[2020-06-30 18:15] VITALS: BP 109/85
--- NOTE | 2020-07-01 06:26 | NUR ---
Patient in room ALEX 353. I have received report from Monster ARANA and had the opportunity to ask questions and assume patient care.
[2020-07-01] MEDS: quetiapine 100mg tablet PO SCH ×2 (09:03→19:49)
[2020-07-01] MEDS: morphine 10mg/0.5ml (conc. morphine) oral syringe PO PRN ×3 (09:06→19:51)
[2020-07-01] MEDS: LORazepam 1 MG tablet PO PRN ×4 (10:12→23:08)
--- NOTE | 2020-07-01 13:45 | NUR ---
Pt is confused, also incomprehensible Addendum: 07/01/20 at 1355 by Maged Gomez STUDENT SHANTAL Amended: Links added.
--- NOTE | 2020-07-01 13:46 | NUR ---
Pt will follow command to swallow pill and water. Addendum: 07/01/20 at 1355 by Maged MURGUIA Amended: Links added.
[2020-07-01 14:00] VITALS: BP 154/103
--- NOTE | 2020-07-01 14:53 | NUR ---
Problems reprioritized. Patient report given, questions answered & plan of care reviewed with Leyla ARANA.
--- NOTE | 2020-07-01 14:56 | NUR ---
Report received from Alma ARANA, patient sleeping at this time, breathing normally. Sitter at bedside. Will continue to monitor restraints and will discontinue eventually if he remain calm or sedated. julio cesar Penaloza was informed about the plan to eventually restraint off if patient remain calm or sedated. No signs of pain during assessment.
--- NOTE | 2020-07-01 16:02 | NUR ---
Off restraints at the moment with sitter at bedside. Patient is calm at this time, will open eyes then fall asleep quickly.
--- NOTE | 2020-07-01 18:05 | NUR ---
Patient in room ALEX 353. I have received report from Leyla ARANA and had the opportunity to ask questions and assume patient care.
--- NOTE | 2020-07-01 18:15 | NUR ---
Problems reprioritized. Patient report given, questions answered & plan of care reviewed with Pat RN.
[2020-07-01 19:30] VITALS: BP 144/89
--- NOTE | 2020-07-01 19:30 | NUR ---
attempt made to float heels; pt thrashes in bed & ends up kicking pillows out Addendum: 07/02/20 at 0213 by Stella Chacko RN Amended: Links added.
[2020-07-01] MEDS: OLANZapine **IM** 10 mg inj. IM PRN (22:24)
[2020-07-02] MEDS: morphine 10mg/0.5ml (conc. morphine) oral syringe PO PRN ×5 (00:12→19:31)
[2020-07-02] MEDS: LORazepam 1 MG tablet PO PRN ×5 (01:21→17:28)
--- NOTE | 2020-07-02 06:27 | NUR ---
Patient in room ALEX 353. I have received report from Pat RN and had the opportunity to ask questions and assume patient care.
[2020-07-02 07:00] VITALS: BP 118/68
[2020-07-02] MEDS: quetiapine 100mg tablet PO SCH ×2 (08:53→19:30)
--- NOTE | 2020-07-02 11:54 | NUR ---
Student documentation and Medication Administration I have reviewed all interventions, assessments performed and documented, all medication-pass' for the time frame [id number], all medication were reviewed, dispensed, administered and documented per hospital policy by Maged AVILA from [facility].
[2020-07-02] MEDS: scopolamine 1.5mg patch.TD72 TD SCH (16:14)
--- NOTE | 2020-07-02 18:35 | NUR ---
Problems reprioritized. Patient report given, questions answered & plan of care reviewed with Quynh ARANA.
--- NOTE | 2020-07-02 18:35 | NUR ---
Patient in room ALEX 353. I have received report from Alma ARANA and had the opportunity to ask questions and assume patient care.
--- NOTE | 2020-07-02 18:35 | NUR ---
Patient in room ALEX 353. I have received report from Alma ARANA and had the opportunity to ask questions and assume patient care.
[2020-07-02 20:00] VITALS: BP 127/73
[2020-07-03] MEDS: morphine 10mg/0.5ml (conc. morphine) oral syringe PO PRN ×4 (03:49→23:53)
--- NOTE | 2020-07-03 06:41 | NUR ---
Problems reprioritized. Patient report given, questions answered & plan of care reviewed with Alyssa RN.
--- NOTE | 2020-07-03 06:43 | NUR ---
Problems reprioritized. Patient report given, questions answered & plan of care reviewed with Alyssa RN. Patient stable at transfer of care. all current needs met
[2020-07-03 07:29] VITALS: BP 144/72
[2020-07-03] MEDS: quetiapine 100mg tablet PO SCH ×2 (08:00→20:00)
[2020-07-03] MEDS: LORazepam 1 MG tablet PO PRN (15:24)
--- NOTE | 2020-07-03 18:27 | NUR ---
Problems reprioritized. Patient report given, questions answered & plan of care reviewed with YASMEEN Lambert.
[2020-07-04] VITALS: BP 124/70
[2020-07-04 07:00] VITALS: BP 117/82
[2020-07-04] MEDS: morphine 10mg/0.5ml (conc. morphine) oral syringe PO PRN ×4 (07:31→20:19)
[2020-07-04] MEDS: quetiapine 100mg tablet PO SCH ×2 (08:00→20:00)
--- NOTE | 2020-07-04 18:02 | NUR ---
Problems reprioritized. Patient report given, questions answered & plan of care reviewed with YASMEEN HE.
[2020-07-04 19:00] VITALS: BP 123/85
--- NOTE | 2020-07-05 06:54 | NUR ---
Patient in room ALEX 353. I have received report from Fausto ARANA and had the opportunity to ask questions and assume patient care.
[2020-07-05] MEDS: morphine 10mg/0.5ml (conc. morphine) oral syringe PO PRN ×4 (07:58→23:59)
[2020-07-05] MEDS: quetiapine 100mg tablet PO SCH ×2 (08:00→19:05)
--- NOTE | 2020-07-05 11:23 | NUR ---
Reassessment: Pt now NPO. LBM 07/02. Pt received PRN bowel care 06/30. No nutrition intervention implemented given NPO status and pt DNR with comfort care. Will continue to follow per LOS. Rec: 1. Bowel care per comfort care measures Addendum: 07/05/20 at [address] Amended: Links added.
--- NOTE | 2020-07-05 16:19 | NUR ---
patient medicated x3 with Roxanol with good effect patient resting . sitter remains in room. taled with Romelia davila and referred her to ayush rifle case repairer with regards DC plan. will continue to monitor. Patient did not eat or drink anything today. , Urine output 200mls.
[2020-07-05] MEDS: scopolamine 1.5mg patch.TD72 TD SCH (16:33)
[2020-07-05 18:00] VITALS: BP 148/68
--- NOTE | 2020-07-05 18:36 | NUR ---
Problems reprioritized. Patient report given, questions answered & plan of care reviewed with Monster ARANA.
[2020-07-06 07:00] VITALS: BP 147/68
[2020-07-06] MEDS: quetiapine 100mg tablet PO SCH ×2 (09:12→20:00)
[2020-07-06 18:00] VITALS: BP 128/61
--- NOTE | 2020-07-06 18:24 | NUR ---
Problems reprioritized. Patient report given, questions answered & plan of care reviewed with YASMEEN Saeed.
--- NOTE | 2020-07-06 19:01 | NUR ---
Patient in room ALEX 353. I have received report from YASMEEN Meza and had the opportunity to ask questions and assume patient care.
[2020-07-07] MEDS: morphine 10mg/0.5ml (conc. morphine) oral syringe PO PRN ×5 (00:57→16:13)
--- NOTE | 2020-07-07 06:30 | NUR ---
Patient in room ALEX 353. I have received report from YASMEEN Hopkins and had the opportunity to ask questions and assume patient care.
--- NOTE | 2020-07-07 06:40 | NUR ---
Problems reprioritized. Patient report given, questions answered & plan of care reviewed with YASMEEN Meza.
[2020-07-07 07:00] VITALS: BP 100/49
[2020-07-07] MEDS: quetiapine 100mg tablet PO SCH (08:00)
--- NOTE | 2020-07-07 18:15 | NUR ---
Patient in room ALEX 353. I have received report from Susana Samuels and had the opportunity to ask questions and assume patient care. Addendum: 07/07/20 at 1850 by Flory Modi RN Amended: Links added.
--- NOTE | 2020-07-07 18:29 | NUR ---
Problems reprioritized. Patient report given, questions answered & plan of care reviewed with YASMEEN Ruth.
--- NOTE | 2020-07-07 18:30 | NUR ---
IMMEDIATELY AFTER RECEIVING REPORT WENT TO CHECK ON THE PT NOTED PUPILS FIXED UNRESPONSIVE WITH ABSENT BREATH SOUNDS. Keyla ARANA CONFIRMED. GOT CRASH CART AND NOTED PT IN ASYSTOLE WITH ABSENT VITALS. DR FORTUNE NOTIFIED GAVE THE ORDER TO PRONOUNCE PT. AND THEN AFTER THIS WAS COMPLETED CALL MADE TO THE FAMILY. SEE EXPIRATION SHEET.
--- NOTE | 2020-07-07 18:30 | NUR ---
IMMEDIATELY AFTER REPORT WENT TO ROOM TO CHECK ON PT. NOTED ABSENT BREATH SOUNDS AND VITALS NOTIFIED LUZ ARANA AND SHE CONFIRMED IT AND GOT CRASH CHART PUT PT ON THE MONITOR AND NOTED ABSENT HEART RHYTHM. DR FORTUNE NOTIFIED AND GAVE ORDER TO PRONOUNCE PT. CONFIRMED BY LUZ ARANA, JEREMIAH ARANA AND JOSE MIGUEL ARANA. PT HEAD FLAT.
--- NOTE | 2020-07-07 18:35 | NUR ---
RN IS TO DOCUMENT YES TO ALL APPLICABLE AREAS Pronouncement of :1834 1. Time Physician Notified:DR FORTUNE 2. Date of :07/07/2020 3. Time of : 1829 4. DNR/Withdraw life support documented: YES ON 06/21/[address] SALGUERO 5. Monitor strip has been placed on chart:YES 6. Assessment process is of one-minute duration and includes following criteria: a) Patient is unresponsive to all stimuli: YES NO BLINK RESPONCE,ABSENT BREAT SOUNDS,ABSENT VITALS b) Pupils fixed and non-reactive:FIXED NO RESPONSE c) Auscultation of precordium reveals absence of heart tones:ABSENT ASYSTOLE ON MONITOR d) Auscultation of lungs reveals absence of breath sounds:ABSENT e) Absence of blood pressure / all vital signs:ABSENT f) QRS complexes are not present on monitor / EKG strip: QRS ABSENT g) Pacer spikes without capture:NONE 4. Comments:GRANDDAUGHTER GRACIE NOTIFIED, THEN CORINNE NOTIFIED ON THE PHONE. RELEASE OF REMAINS PERMISSION GIVEN BY AND GRANDDAUGHTER TO [facility]. THEY STATED HE IS A VET WANTING CREMATION AND TO BE BURIED WITH VETS.
--- NOTE | 2020-07-07 19:03 | NUR ---
Pulse oximetery is [0]% on [roomair& absent vital, asytole on the monitor] interpreted by [Ranulfo Meza Rn ] as [Rn], pronounced at 183, dr wong notified order for Rn may pronounce given. 1849 Granddaughter notified Sailaja and then Romelia notified by phone. Addendum: 07/07/20 at 1907 by Flory Modi RN Amended: Links added.
--- NOTE | 2020-07-07 19:05 | NUR ---
EXPIRATION CARE DONE ON PT BY MOBILE UI DESIGNER AND aeronautical engineer [email or web address].
--- NOTE | 2020-07-07 20:42 | NUR ---
PT HERE MORE THAN 21 DAYS SO MRSA SWAB COLLECTED AND SENT TO LAB. AWAITING [facility] TO PICK PT UP. PT HAS NO BELONGINGS.
--- NOTE | 2020-07-07 21:03 | NUR ---
[facility] HERE WITH SECURITY AND NOW LEAVING THE FLOOR WITH PT IN [facility].
== END 2020-07-07 23:22 | disposition expired | DRG 853 ==
LOC: ER 07:59 → ED HOLD 11:01 → ORTHO 4S 11:40 → SUR 3N 05-24 17:08
PROVIDERS: ADMIT Family Medicine; ATTEND Family Medicine
PROC: 0Y6H0Z1 Detachment at Right Lower Leg, High, Open Approach (ICD-10-PCS; principal; 2020-05-17 07:08)
DX: A40.9 Streptococcal sepsis, unspecified (principal); G93.41 Metabolic encephalopathy; E11.52 Type 2 diabetes mellitus with diabetic peripheral angiopathy with gangrene; I25.810 Atherosclerosis of coronary artery bypass graft(s) without angina pectoris; L03.115 Cellulitis of right lower limb; M86.8X7 Other osteomyelitis, ankle and foot; N39.0 Urinary tract infection, site not specified; E11.621 Type 2 diabetes mellitus with foot ulcer; E11.628 Type 2 diabetes mellitus with other skin complications; E11.69 Type 2 diabetes mellitus with other specified complication; E78.00 Pure hypercholesterolemia, unspecified; E78.5 Hyperlipidemia, unspecified; F41.9 Anxiety disorder, unspecified; G62.9 Polyneuropathy, unspecified; I10 Essential (primary) hypertension; I25.10 Atherosclerotic heart disease of native coronary artery without angina pectoris; I25.2 Old myocardial infarction; I48.91 Unspecified atrial fibrillation; K59.00 Constipation, unspecified; L97.509 Non-pressure chronic ulcer of other part of unspecified foot with unspecified severity; Z51.5 Encounter for palliative care; Z66 Do not resuscitate; Z78.1 Physical restraint status; Z79.899 Other long term (current) drug therapy; Z85.6 Personal history of leukemia; Z86.73 Personal history of transient ischemic attack (TIA), and cerebral infarction without residual deficits; Z88.0 Allergy status to penicillin; Z89.422 Acquired absence of other left toe(s); Z91.81 History of falling; Z95.1 Presence of aortocoronary bypass graft; Z95.5 Presence of coronary angioplasty implant and graft; D64.9 Anemia, unspecified; G30.9 Alzheimer's disease, unspecified; F02.80 Dementia in other diseases classified elsewhere, unspecified severity, without behavioral disturbance, psychotic disturbance, mood disturbance, and anxiety
CPT/HCPCS: 96365; 99291; Z7506; Z7508; 36415; 70450; 70551; 71045; 73630; 76937; 80048; 80053; 80061; 81001; 82140; 82948; 83036; 83605; 83735; 84100; 84132; 84145; 85025; 85610; 85651; 85730; 86885; 86900; 86901; 87040; 87070; 87077; 87081; 87088; 87186; 92508; 92616; 93005; 97110; 97112; 97162; 97164; 97530; 97535; A4618; A6223; A6449; A7000; C1758; G0378; J0690; J0692; J0696; J1100; J1170; J1630; J1650; J1815; J1956; J2060; J2185; J2212; J2250; J2270; J3010; J3370; J3475; J3486; J3490; J7030; J7040; J7120